=== PATIENT | female | born 1990 | race Caucasian/White ===

== ENCOUNTER → 2017-08-19 16:13 | Outpatient (CLI) | payer OTHER, SELFPAY ==
[2017-08-19 17:29] LABS: Ferritin 7 ng/mL (8-252); Glucose Challenge Gest 1H 50g 104 mg/dL (70-140); Iron Binding Capacity,Total 402 ug/dL (250-450)
[2017-08-19 17:51] LABS: hCG Titer Quant., Serum 941 mIU/mL (<9 non-preg)
[2017-08-19 17:56] LABS: Absolute Lymphocyte Count 1.63 X10^3/ul (0.83-4.51); Absolute Neutrophil Count 3.7 X10^3/uL (2.0-7.7); Basophil# 0.02 X10^3/uL; Basophil% 0.3 % (0-1); Eosinophil# 0.02 X10^3/uL; Eosinophils% 0.3 % (0-5); Hematocrit 34.6 % (37-47); Hemoglobin 10.8 g/dl (12.0-15.0); Lymphocyte # 1.63 X10^3/ul (4.0); Lymphocyte % 28.3 % (19-41); Mean Corp Hgb Conc 31.2 g/gl (32-36); Mean Corpuscular Hgb 25.4 pg (27.0-32.0); Mean Corpuscular Volume 81.4 fL (81-99); Mean Platelet Vol. 9.6 fl (6.2-12.0); Monocyte# 0.36 X10^3/uL; Monocyte% 6.3 % (0-10); Neutrophil # 3.71 X10^3/uL (2.7-7.7); Neutrophil % 64.6 % (47-70); Platelet Count 328 K/mm3 (150-450); RBC Distribution Width CV 14.8 % (11.6-14.6); Red Blood Count 4.25 M/mm3 (4.2-5.4); White Blood Count 5.8 K/mm3 (4.4-11.0)
[2017-08-19 18:02] LABS: POSITIVE COUNT NO; POSITIVE DIFFERENTIAL NO; POSITIVE MORPHOLOGY NO
[2017-08-19 18:17] LABS: HIV - WCH Non-Reactive (Nonreactive); Rubella IgG 16.1 IU/mL; Vitamin B12 757 pg/mL (211-911)
[2017-08-21 11:40] LABS: HEPATITIS B SURFACE AG Negative (Negative)
[2017-08-23 05:01] LABS: Rapid Plasmin Reagin (RPR) NONREACTIVE (NONREACTIVE)
[2017-08-23 11:30] LABS: Vitamin D 1,25-Dihydroxy 69.7 pg/mL (19.9-79.3)
== END ==
PROVIDERS: Visit Provider Obstetrics & Gynecology
DX: O09.90 Supervision of high risk pregnancy, unspecified, unspecified trimester (principal); Z98.890 Other specified postprocedural states; Z3A.00 Weeks of gestation of pregnancy not specified
CPT/HCPCS: 82607; 82652; 82728; 82950; 83550; 84702; 85025; 86592; 86703; 86762; 86850; 86900; 87340

== ENCOUNTER → 2017-08-19 17:16 | Outpatient (CLI) | payer OTHER, SELFPAY ==
[2017-08-19 19:31] LABS: Chlamydia Trachomatis by PCR Negative (Negative); Neisserai gonorrhoeae by PCR Negative (Negative); Probe Check PASS; Sample Adequacy Control PASS; Specimen Processing Control PASS
== END ==
PROVIDERS: Visit Provider Obstetrics & Gynecology
DX: O09.90 Supervision of high risk pregnancy, unspecified, unspecified trimester (principal); N89.8 Other specified noninflammatory disorders of vagina; Z3A.00 Weeks of gestation of pregnancy not specified
CPT/HCPCS: 87070; 87077; 87086; 87088; 87186; 87205; 87491; 87591

== ENCOUNTER 2017-10-17 11:20 | Day surgery (SDC) | payer MEDICAID, SELFPAY ==
[2017-10-15 15:41] LABS: Absolute Lymphocyte Count 2.13 X10^3/ul (0.83-4.51); Absolute Neutrophil Count 5.1 X10^3/uL (2.0-7.7); Basophil# 0.02 X10^3/uL; Basophil% 0.3 % (0-1); Eosinophil# 0.09 X10^3/uL; Eosinophils% 1.2 % (0-5); Hematocrit 36.4 % (37-47); Lymphocyte # 2.13 X10^3/ul (4.0); Lymphocyte % 27.8 % (19-41); Mean Corpuscular Volume 81.8 fL (81-99); Mean Platelet Vol. 9.3 fl (6.2-12.0); Monocyte# 0.37 X10^3/uL; Monocyte% 4.8 % (0-10); Neutrophil # 5.05 X10^3/uL (2.7-7.7); Neutrophil % 65.8 % (47-70); Platelet Count 236 K/mm3 (150-450); RBC Distribution Width CV 15.9 % (11.6-14.6); RBC Distribution Width SD 48.4 fl (35.1-43.9); Red Blood Count 4.45 M/mm3 (4.2-5.4); White Blood Count 7.7 K/mm3 (4.4-11.0)
[2017-10-15 15:48] LABS: POSITIVE COUNT NO; POSITIVE DIFFERENTIAL NO; POSITIVE MORPHOLOGY NO
[2017-10-17] VITALS (7 sets, daily range): BP systolic 106–163; BP diastolic 58–86; PULSE 66–100; RESP 18; TEMP 36.2–37.1; O2SAT 94–100; BMI 40.8
--- NOTE | 2017-10-17 | POC_PTH ---
PATIENT: RAUL ZIEGLER [place] [facility] [place][id number] AGE/SX: 27/F ROOM: RE10/17/[address]: Dr. Norma Lopez MD : 1990 BED: DIS: 10/17/2017 SPEC #: [id number] RECD: 10/17/17 14:41 STATUS: [place] RECedrick #: [id number] ANAHI: 10/17/17 00:[address]: Norma Lopez DEPT: SURGICAL PATHOLOGY RECD BY: Gian Segura ENTERED: 10/17/17 14:42 SP TYPE: PROD CONC OTHR DR: Dr. Buzz Castañeda MD Tissues: Product of conception, NOS Procedures: Surgery Specimen Level IV HEADER OPERATION: Dilation and curettage, suction PRE-OP DIAGNOSIS: Missed , bleeding during early ; bacteriuria during ; family history of Down syndrome TISSUE SUBMITTED: Products of conception (12-week gestation) for genetic studies MICROSCOPIC DIAGNOSIS Endometrium, curettage: Chorionic villi, decidualized stroma and early tissue consistent with products of conception. AM:ruby 10/18/17 COMMENT Case has been reviewed in consultation with Dr. Enamorado who concurs with the above diagnosis. TIMMY:KRISHAN MICROSCOPIC DESCRIPTION Slides are reviewed. GROSS DESCRIPTION Received fresh without formalin is one container labeled with the patient's name and designated products of conception for genetic studies. The specimen consists of multiple pieces of pink-red soft tissue that in aggregate measure 8 x 8 x 2 cm. tissue is not identified. Air Quality Specialist tissue is also submitted for genetic studies. Air Quality Specialist tissue is submitted in two cassettes. The rest of the specimen is fixed in formalin. / KRISHAN:ruby 10/17/17 TC:5 CPT: 49737
--- NOTE | 2017-10-17 11:38 | PCM.HP.OB ---
- Problem List (1) Missed Status: Acute History Date of Admission: 10/17/17 History of this : This is a 27 year-old, at 12 weeks gestational age presents with missed . she denies any bleeding or cramping. Medical History: Medical History (Last Reviewed 09/09/17 @ 13:22 by Radha Mack) Anxiety F41.9 Depression F32.9 Hydradenitis L73.2 PTSD (post-traumatic stress disorder) F43.10 Surgical History: Surgical History (Last Reviewed 09/09/17 @ 13:22 by Radha Mack) History of ear surgery Z98.890 history of gastric sleeve Allergies No Known Allergies Allergy (Verified 09/09/17 13:22) Home Medications: Home Medications buspirone 10 mg tablet 10 mg PO BID 08/19/17 hydroxyzine pamoate 25 mg capsule 25 mg PO TID-QID PRN #60 cap 08/19/17 vitamin with calcium no.72-iron 27 mg-folic acid 1 mg tablet 1 tab PO QDAY #30 tab 08/19/17 ranitidine 150 mg tablet 150 mg PO BID #60 tab 08/19/17 trazodone 50 mg tablet 100 mg PO QHS tab 08/19/17 promethazine 12.5 mg tablet 12.5 mg PO Q6H PRN #60 tab 10/03/17 Smoking Status: Never smoker Number of Fetus(es): 1 - no heart tones or color flow seen History Past Pregnancies: Past Pregnancies Delivery Date Name GA/Weeks Outcome Route Weight Infant Gender Labor Length Anesthesia Delivery Location Provider FOB Review of Systems Constitutional: Denies: Fever, Malaise Eyes: Denies: Blurred vision, Vision Change HEENT: Denies: Head Aches, Visual Changes Cardiovascular: Denies: Chest Pain, Palpitations Respiratory: Denies: Cough, Shortness of Breath, Wheezing Gastrointestinal: Denies: Abdominal Pain, Diarrhea, Nausea, Vomiting Genitourinary: Denies: Dysuria, Hematuria Musculoskeletal: Denies: Joint Pain, Muscle pain Skin: Denies: Lesions, Rash Neurological: Denies: Blurred vision, Focal weakness, Headaches Psychiatric: Denies: Anxiety, Depression Endocrine: Denies: Heat/ Cold Intolerance Hematologic/ Lymphatic: Denies: Easy Bruising, Easy Bleeding Physical Exam General: Alert, Cooperative, No apparent distress HEENT: Atraumatic, Normocephalic. Negative for: Thyromegaly, Lymphadenopathy Cardiovascular: Regular rate Lungs: Normal air movement Abdomen: Soft, Non Tender, Gravid Neurological: Deep Tendon Reflexes 2+/4 and Symmetrical, Neuro grossly intact. 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 Negative for: Vulvar lesions Estimated gestational size: Appropriate for gestational size Presentation: Cephalic Assessment/Plan All Active Problems (Last Reviewed 09/09/17 @ 13:22 by Radha Mack) Missed (Acute) Bleeding in early (Acute) Bacteriuria during (Acute) Iron deficiency anemia during (Acute) Family history of Down syndrome (Acute) History of gastric surgery (Acute) BMI 40.0-44.9, adult (Acute) Supervision of high risk , antepartum (Acute) This is a 27 year-old, at 12 weeks presents with missed plan d and c suction
[2017-10-17] MEDS: Doxycycline 100 MG CAPSULE PO (12:54)
--- NOTE | 2017-10-17 15:16 | PCM.DC.D&C ---
Discharge Diet: No Restrictions Discharge Activity: Return to Normal Activity, May Shower, May Take a Tub Bath Allergies/Adverse Reactions: Allergies No Known Allergies Allergy (Verified 09/09/17 13:22) Medications to take at Discharge buspirone 10 mg tablet 10 mg PO BID 08/19/17 hydroxyzine pamoate 25 mg capsule 25 mg PO TID-QID PRN #60 cap 08/19/17 vitamin with calcium no.72-iron 27 mg-folic acid 1 mg tablet 1 tab PO QDAY #30 tab 08/19/17 ranitidine 150 mg tablet 150 mg PO BID #60 tab 08/19/17 trazodone 50 mg tablet 100 mg PO QHS tab 08/19/17 promethazine 12.5 mg tablet 12.5 mg PO Q6H PRN #60 tab 10/03/17 Primary Care Physician: Buzz Castañeda MD [Primary Care Provider] - Please Follow Up With: Norma Lopez MD - [phone]
--- NOTE | 2017-10-17 15:20 | PCM.OPRPT ---
Problem List (1) Missed Status: Acute Report of Operation Date of Procedure: 10/17/17 Pre-Operative Diagnosis: missed ab Post-Operative Diagnosis: same Surgery/Procedure Performed:: suction d and c Description of Surgical Findings:: 12 week missed confirmed no fht Type of Anesthesia:: Local MAC Special Medications: cytotec pitocin Specimen's removed: POC Estimated Blood Loss (mL): minimal Fluids Replaced: crystalloid Description of Procedure: Patient was evaluated preoperatively and found to have a missed at 12 weeks of with a pole only measuring 12 weeks with no heart tones seen. this was reconfirmed by ultrasound immediatley prior to surgery. Patient was counseled and offered medical management versus surgical and patient chose suction D&C. Patient received IV anesthesia was prepped and draped in normal sterile fashion in the dorsal lithotomy position. Cervix was grasped with ring forceps and previously dilated to allow passage of a 12 mm suction curette. Uterus sounded 13 cm. Multiple passes were made with the suction curette to remove products of conception and then sharp curettage was formed to confirm all removal of products of conception. All instruments were removed from the vagina and patient was awoken and taken recovery in stable condition. Grafts/Implants Used: none - Complications none
== END 2017-10-17 16:50 | disposition home or self-care (01) ==
LOC: SDC 11:21 → AC 11:21
PROVIDERS: Visit Provider Obstetrics & Gynecology
PROC: (CPT 1965; principal; 2017-10-17 12:40)
DX: O03.4 Incomplete spontaneous abortion without complication (principal); F32.9 Major depressive disorder, single episode, unspecified; F41.9 Anxiety disorder, unspecified; F43.10 Post-traumatic stress disorder, unspecified; L73.2 Hidradenitis suppurativa; K21.9 Gastro-esophageal reflux disease without esophagitis; Z79.899 Other long term (current) drug therapy
CPT/HCPCS: 59812; 85025; 86850; 86900; 88305; J7120

== ENCOUNTER → 2018-11-24 | Outpatient (CLI) | payer MEDICAID, SELFPAY ==
[2017-10-17 11:50] VITALS: BMI 40.8
[2018-11-24 13:30] LABS: hCG Titer Quant., Serum 771 mIU/mL (1-3)
== END | disposition home or self-care (01) ==
PROVIDERS: Referring Provider Obstetrics & Gynecology; Visit Provider Obstetrics & Gynecology
DX: N91.2 Amenorrhea, unspecified (principal)
CPT/HCPCS: 36415; 84702

== ENCOUNTER → 2018-11-26 | Outpatient (CLI) | payer MEDICAID, SELFPAY ==
[2017-10-17 11:50] VITALS: BMI 40.8
[2018-11-26 13:37] LABS: hCG Titer Quant., Serum 1494 mIU/mL (1-3)
== END | disposition home or self-care (01) ==
LOC: LAB 12:01
PROVIDERS: Referring Provider Obstetrics & Gynecology; Visit Provider Obstetrics & Gynecology
DX: N91.2 Amenorrhea, unspecified (principal)
CPT/HCPCS: 36415; 84702

== ENCOUNTER → 2018-12-22 | Outpatient (CLI) | payer MEDICAID, SELFPAY ==
[2018-12-22 09:35] VITALS: BMI 40.8
[2018-12-22 10:43] LABS: Absolute Lymphocyte Count 1.38 X10^3/uL (0.83-4.51); Absolute Neutrophil Count 3.6 X10^3/uL (2.0-7.7); Basophil# 0.02 X10^3/uL; Basophil% 0.4 % (0-1); Eosinophil# 0.04 X10^3/uL; Eosinophils% 0.7 % (0-5); Hematocrit 37.4 % (37-47); Hemoglobin 12.5 g/dL (12.0-15.0); Lymphocyte # 1.38 X10^3/ul (4.0); Lymphocyte % 25.5 % (19-41); Mean Corp Hgb Conc 33.4 g/dL (32-36); Mean Corpuscular Volume 86.8 fL (81-99); Mean Platelet Vol. 9.3 fl (6.2-12.0); Monocyte% 7.4 % (0-10); NRBC Flagged by Analyzer 0 % (0-5); Neutrophil # 3.56 X10^3/uL (2.7-7.7); Neutrophil % 65.6 % (47-70); Platelet Count 224 K/mm3 (150-450); RBC Distribution Width SD 38.4 fl (35.1-43.9); Red Blood Count 4.31 M/mm3 (4.2-5.4); White Blood Count 5.4 K/mm3 (4.4-11.0)
[2018-12-22 11:36] LABS: Glucose Challenge Gest 1H 50g 164 mg/dL (70-140); Iron 54 ug/dL (50-170); Iron Binding Capacity,Total 278 ug/dL (250-450); PERCENT IRON SATURATION 19.4 % (15.0-55.0)
[2018-12-22 12:29] LABS: HIV - WCH Non-Reactive (Nonreactive); Hepatitis B Surface Antigen Non-Reactive (Nonreactive); Rubella IgG 14.3 IU/mL; Vitamin B12 541 pg/mL (211-911)
[2018-12-22 18:02] LABS: Chlamydia Trachomatis by PCR Negative (Negative); Neisserai gonorrhoeae by PCR Negative (Negative); Probe Check PASS; Sample Adequacy Control PASS; Specimen Processing Control PASS
[2018-12-25 14:14] LABS: Vitamin D 1,25-Dihydroxy 88.9 pg/mL (19.9-79.3)
[2018-12-26 01:38] LABS: Rapid Plasmin Reagin (RPR) NONREACTIVE (NONREACTIVE)
[2018-12-29 13:44] LABS: HPV Reflexed? NOT INDICATED
== END | disposition home or self-care (01) ==
PROVIDERS: Referring Provider Obstetrics & Gynecology; Visit Provider Obstetrics & Gynecology
DX: O09.90 Supervision of high risk pregnancy, unspecified, unspecified trimester (principal); Z98.890 Other specified postprocedural states; Z12.4 Encounter for screening for malignant neoplasm of cervix; Z3A.00 Weeks of gestation of pregnancy not specified
CPT/HCPCS: 36415; 82607; 82652; 82746; 82950; 83540; 83550; 85025; 86592; 86703; 86762; 86850; 86900; 86901; 87077; 87086; 87088; 87186; 87340; 87491; 87591; 87624; 88175; G0145

== ENCOUNTER → 2019-01-02 | Outpatient (CLI) | payer MEDICAID, SELFPAY ==
[2018-12-22 09:35] VITALS: BMI 40.8
[2019-01-02 08:07] LABS: Glucose GTT-Gestation. Fasting 88 mg/dL (<105)
[2019-01-02 09:05] LABS: Glucose GTT-Gestational 1 Hr 183 mg/dL (<190)
[2019-01-02 09:48] LABS: Glucose GTT-Gestational 2 Hr 123 mg/dL (<165)
[2019-01-02 12:05] LABS: Glucose GTT-Gestational 3 Hr 44 L (<145)
== END | disposition home or self-care (01) ==
LOC: LAB 07:03
PROVIDERS: Referring Provider Obstetrics & Gynecology; Visit Provider Obstetrics & Gynecology
DX: O99.810 Abnormal glucose complicating pregnancy (principal); Z3A.00 Weeks of gestation of pregnancy not specified
CPT/HCPCS: 36415; 82951; 82952

== ENCOUNTER → 2019-01-23 16:31 | Outpatient (CLI) | payer MEDICAID, SELFPAY ==
[2019-01-23 15:57] VITALS: BMI 40.8
== END ==
PROVIDERS: Referring Provider Nurse Practitioner Women's Health; Visit Provider Nurse Practitioner Women's Health
DX: O99.810 Abnormal glucose complicating pregnancy (principal); Z3A.00 Weeks of gestation of pregnancy not specified
CPT/HCPCS: 36415; 87086; 87088

== ENCOUNTER → 2019-02-23 09:46 | Outpatient (CLI) | payer MEDICAID, SELFPAY ==
[2019-02-23 09:10] VITALS: BMI 40.8
== END ==
PROVIDERS: Referring Provider Obstetrics & Gynecology; Visit Provider Obstetrics & Gynecology
DX: Z36.9 Encounter for antenatal screening, unspecified (principal)
CPT/HCPCS: 36415

== ENCOUNTER → 2019-04-30 14:36 | Outpatient (CLI) | payer OTHER, SELFPAY ==
[2019-03-27 15:12] VITALS: BMI 40.8
--- NOTE | 2019-04-30 14:37 | RAD_ITS ---
STUDY: X-RAY - LEFT ANKLE REASON FOR EXAM: Female, 29 years old. FELL, TWISTED ANKLE TWO DAYS AGO, LATERAL SWELLING TECHNIQUE: 3 view(s) of the ankle. COMPARISON: None. FINDINGS: Normal visualized distal tibia and fibula. Normal medial and lateral malleoli. Normal tibiotalar articulation and ankle mortise. Normal visualized talus and calcaneus. The visualized subtalar, talonavicular, calcaneocuboid and tarsal articulations are normal. The soft tissue structures are unremarkable. RAD/Ankle min 3 Views IMPRESSION: Normal x-ray examination of the ankle. Electronically Signed: Taj Leon MD at 15:25 EST Tel , Service support ,
--- NOTE | 2019-04-30 14:37 | RAD_ITS ---
STUDY: X-RAY - LEFT FOOT CLINICAL: Female, 29 years old. FELL, TWISTED FOOT TWO DAYS AGO, SWELLING TECHNIQUE: 3 view(s) of the foot. COMPARISON: None. FINDINGS: Normal talus, calcaneus, and tarsal bones. Normal visualized subtalar, talonavicular, calcaneocuboid, tarsal and tarsometatarsal articulations. Normal metatarsi. Normal metatarsophalangeal joint of the great toe. Normal tibial and fibular sesamoid bones. Normal interphalangeal joint of the great toe. Normal phalanges of the great toe. Normal second through fifth metatarsophalangeal joints. Normal interphalangeal joints and phalanges of the lesser toes. The soft tissue structures are unremarkable. RAD/Foot min 3 Views IMPRESSION: Normal x-ray examination of the foot. Electronically Signed: Taj Leon MD at 15:23 EST Tel , Service support ,
[2019-04-30 18:27] LABS: Absolute Lymphocyte Count 2.13 X10^3/uL (0.83-4.51); Absolute Neutrophil Count 6.1 X10^3/uL (2.0-7.7); Basophil# 0.03 X10^3/uL; Basophil% 0.3 % (0-1); Eosinophils% 1.1 % (0-5); Hematocrit 32.7 % (37-47); Hemoglobin 10.7 g/dL (12.0-15.0); Lymphocyte # 2.13 X10^3/ul (4.0); Lymphocyte % 23.6 % (19-41); Mean Corp Hgb Conc 32.7 g/dL (32-36); Mean Corpuscular Hgb 29.6 pg (27.0-32.0); Mean Corpuscular Volume 90.6 fL (81-99); Mean Platelet Vol. 9.3 fl (6.2-12.0); Monocyte# 0.62 X10^3/uL; Monocyte% 6.9 % (0-10); NRBC Flagged by Analyzer 0 % (0-5); Neutrophil # 6.12 X10^3/uL (2.7-7.7); Neutrophil % 67.8 % (47-70); Platelet Count 260 K/mm3 (150-450); RBC Distribution Width CV 12.4 % (11.6-14.6); Red Blood Count 3.61 M/mm3 (4.2-5.4)
[2019-04-30 18:34] LABS: Glucose Challenge Gest 1H 50g 143 mg/dL (70-140)
== END ==
PROVIDERS: Referring Provider Obstetrics & Gynecology; Visit Provider Obstetrics & Gynecology
DX: S99.922A Unspecified injury of left foot, initial encounter (principal); S99.912A Unspecified injury of left ankle, initial encounter; O09.90 Supervision of high risk pregnancy, unspecified, unspecified trimester
CPT/HCPCS: 36415; 73610; 73630; 82950; 85025

== ENCOUNTER → 2019-05-01 10:03 | Outpatient (CLI) | payer OTHER, SELFPAY ==
[2019-04-30 17:02] VITALS: BMI 40.8
[2019-05-01 11:15] LABS: Glucose GTT-Gestation. Fasting 87 mg/dL (<105)
[2019-05-01 11:56] LABS: Glucose GTT-Gestational 1 Hr 199 mg/dL (<190)
[2019-05-01 12:49] LABS: Glucose GTT-Gestational 2 Hr 120 mg/dL (<165)
[2019-05-01 13:55] LABS: Glucose GTT-Gestational 3 Hr 53 L (<145)
== END ==
PROVIDERS: Referring Provider Obstetrics & Gynecology; Visit Provider Obstetrics & Gynecology
DX: O99.810 Abnormal glucose complicating pregnancy (principal); Z3A.00 Weeks of gestation of pregnancy not specified
CPT/HCPCS: 36415; 82951; 82952

== ENCOUNTER → 2019-06-04 12:02 | Outpatient (CLI) | payer OTHER, SELFPAY ==
[2019-05-29 16:24] VITALS: BMI 40.8
--- NOTE | 2019-06-04 12:04 | US_ITS ---
STUDY: SECOND AND THIRD TRIMESTER OBSTETRICAL ULTRASOUND REASON FOR EXAM: Female, 29 years old growth LMP: October 24, 2018. TECHNIQUE: Transabdominal TECHNICAL QUALITY: Adequate. PRIOR ULTRASOUND: None. FINDINGS: There is a single intrauterine fetus. The fetus is in a cephalic presentation. There is demonstrated cardiac activity with a heart rate of 147 bpm. There is a normal amniotic fluid volume. The largest amniotic fluid pocket measures 4.2 cm. The amniotic fluid index (BERENICE) is 13.2 cm. The placenta is posterior in location and is not low lying. There are Grade 1 placental changes. The cervix measures 3.9 cm in length. The adnexal regions are not visualized. BIOMETRY: BPD: 8.2 cm: 32 weeks, 5 days HC: 30.1 cm: 33 weeks, 2 days AC: 27.7 cm: 31 weeks, 5 days FL: 6.2 cm: 32 weeks, 2 days CI: 80% FL/BPD: 76% FL/HC: FL/AC: 22.5% HC/AC: 1.08 age by current US: 32 weeks, 2 days. SHLOMO by current US: July 28, 2019. Estimated weight: 1922 grams, +/- 284 grams, 45 %. Age by LMP: 31 weeks, 6 days. SHLOMO by LMP: July 31, 2019. US/OB Limited With Biometrics IMPRESSION: Single live intrauterine gestation with a mean gestational age of 32 weeks and 2 days. Electronically Signed: Brennan Smith, at 13:18 EST , Service support ,
[2019-06-04 13:35] LABS: Absolute Lymphocyte Count 1.93 X10^3/uL (0.83-4.51); Absolute Neutrophil Count 7.2 X10^3/uL (2.0-7.7); Basophil# 0.03 X10^3/uL; Basophil% 0.3 % (0-1); Eosinophil# 0.08 X10^3/uL; Eosinophils% 0.8 % (0-5); Hematocrit 34.8 % (37-47); Hemoglobin 11.4 g/dL (12.0-15.0); Lymphocyte # 1.93 X10^3/ul (4.0); Lymphocyte % 19.3 % (19-41); Mean Corp Hgb Conc 32.8 g/dL (32-36); Mean Corpuscular Volume 88.5 fL (81-99); Mean Platelet Vol. 9.3 fl (6.2-12.0); Monocyte# 0.65 X10^3/uL; Monocyte% 6.5 % (0-10); NRBC Flagged by Analyzer 0 % (0-5); Neutrophil # 7.23 X10^3/uL (2.7-7.7); Neutrophil % 72.5 % (47-70); Platelet Count 251 K/mm3 (150-450); RBC Distribution Width CV 12.6 % (11.6-14.6); RBC Distribution Width SD 41.1 fl (35.1-43.9); Red Blood Count 3.93 M/mm3 (4.2-5.4)
== END ==
PROVIDERS: Referring Provider Obstetrics & Gynecology; Visit Provider Obstetrics & Gynecology
DX: O24.419 Gestational diabetes mellitus in pregnancy, unspecified control (principal); D64.9 Anemia, unspecified; Z3A.32 32 weeks gestation of pregnancy
CPT/HCPCS: 36415; 76816; 85025

== ENCOUNTER → 2019-06-25 09:16 | Outpatient (CLI) | payer OTHER, SELFPAY ==
[2019-06-25 09:13] VITALS: BMI 46.2
[2019-06-25 09:35] LABS: Absolute Lymphocyte Count 1.84 X10^3/uL (0.83-4.51); Absolute Neutrophil Count 6.7 X10^3/uL (2.0-7.7); Basophil# 0.02 X10^3/uL; Basophil% 0.2 % (0-1); Eosinophil# 0.05 X10^3/uL; Eosinophils% 0.5 % (0-5); Hematocrit 36.1 % (37-47); Hemoglobin 11.8 g/dL (12.0-15.0); Lymphocyte # 1.84 X10^3/ul (4.0); Lymphocyte % 19.8 % (19-41); Mean Corp Hgb Conc 32.7 g/dL (32-36); Mean Corpuscular Volume 88.7 fL (81-99); Mean Platelet Vol. 9.2 fl (6.2-12.0); Monocyte% 6.5 % (0-10); NRBC Flagged by Analyzer 0 % (0-5); Neutrophil # 6.71 X10^3/uL (2.7-7.7); Neutrophil % 72.5 % (47-70); Platelet Count 212 K/mm3 (150-450); RBC Distribution Width CV 12.8 % (11.6-14.6); RBC Distribution Width SD 41.4 fl (35.1-43.9); Red Blood Count 4.07 M/mm3 (4.2-5.4); White Blood Count 9.3 K/mm3 (4.4-11.0)
[2019-06-25 09:49] LABS: Protein, Urine (Random) 23.1 mg/dL (<11.9); Protein:Creat Ratio 206 mg/g CRE (0-200)
[2019-06-25 10:00] LABS: ALB/GLOB Ratio 0.6 RATIO (0.9-2.4); AST(SGOT) 13 U/L (15-37); Alanine Aminotransfer ALT/SGPT 24 U/L (13-56); Albumin, Serum 2.6 g/dL (3.2-5.0); Alkaline Phosphatase 101 U/L (45-117); Anion Gap 4 (5-15); BUN 7 mg/dL (7-18); BUN/Creat Ratio 11.8 RATIO (10-20); Calcium,Total 8.7 mg/dL (8.5-10.1); Chloride 107 mmol/L (98-107); EST Glomerular Filtration Rate 128 mL/min (>60); Est Glom Filt Rate - Afr Amer 154 mL/min (>60); Globulin 4.2 g/dL (2.2-4.2); Glucose 88 mg/dL (74-106); Protein, Total 6.8 g/dL (6.4-8.2); Sodium Level 136 mmol/L (136-145)
== END ==
PROVIDERS: Nurse Practitioner Women's Health; Referring Provider Obstetrics & Gynecology; Visit Provider Obstetrics & Gynecology
DX: O26.899 Other specified pregnancy related conditions, unspecified trimester (principal); R51 Headache
CPT/HCPCS: 36415; 80053; 82570; 84156; 85025

== ENCOUNTER → 2019-07-03 13:48 | Outpatient (CLI) | payer OTHER, SELFPAY ==
[2019-05-29 16:24] VITALS: BMI 40.8
[2019-07-03 13:16] VITALS: BMI 46.2
--- NOTE | 2019-07-03 13:49 | US_ITS ---
STUDY: SECOND AND THIRD TRIMESTER OBSTETRICAL ULTRASOUND - LIMITED REASON FOR EXAM: Female, 29 years old. Growth. LMP: October 24, 2018. PRIOR ULTRASOUND: June 04, 2019. TECHNIQUE: Transabdominal TECHNICAL QUALITY: Adequate. FINDINGS: There is a single intrauterine fetus. The fetus is in a cephalic presentation. There is demonstrated cardiac activity with a heart rate of 140 bpm. There is a normal amniotic fluid volume. The largest amniotic fluid pocket measures 6.95 cm. The amniotic fluid index (BERENICE) is 20.98 cm. The placenta is posterior in location and is not low lying. There are Grade 0 placental changes. The cervix measures 3.06 cm in length. BIOMETRY: BPD: 8.85 cm: 35 weeks, 5 days HC: 32.23 cm: 36 weeks, 2 days AC: 32.31 cm: 36 weeks, 1 days FL: 6.93 cm: 35 weeks, 4 days Age by LMP: 36 weeks, 0 days. SHLOMO by LMP: July 31, 2019.. age by prior US: 36 weeks, 3 days. SHLOMO by prior US: July 28, 2019.. age by current US: 36 weeks, 1 days. SHLOMO by current US: July 30, 2019.. Estimated weight: 2832 grams, +/- 419 grams, 49 percentile. US/OB Limited With Biometrics IMPRESSION: 1. Live single intrauterine at 36 weeks, 1 day. SHLOMO is July 30, 2019. There is adequate interval growth since the prior study. 2. EFW of 2832 g. 3. BERENICE 20.98 cm. 4. Posterior grade 1 placenta. 5. Vertex presentation. Electronically Signed: Karl Pompa DO at 16:48 EST Tel [phone], Service support ,
== END ==
PROVIDERS: Referring Provider Obstetrics & Gynecology; Visit Provider Obstetrics & Gynecology
DX: O24.419 Gestational diabetes mellitus in pregnancy, unspecified control (principal); O09.90 Supervision of high risk pregnancy, unspecified, unspecified trimester
CPT/HCPCS: 76816; 87081

== ENCOUNTER → 2019-07-07 14:45 | Outpatient (CLI) | payer OTHER, MEDICAID, SELFPAY ==
[2019-07-07 14:06] VITALS: BMI 46.2
[2019-07-07 15:51] LABS: T4 Free Direct 0.82 ng/dL (0.76-1.46); Thyroid Stim Hormone (TSH) 1.48 uIU/mL (0.358-3.74)
== END ==
PROVIDERS: Referring Provider Nurse Practitioner Women's Health; Visit Provider Nurse Practitioner Women's Health
DX: E03.9 Hypothyroidism, unspecified (principal)
CPT/HCPCS: 36415; 84439; 84443

== ENCOUNTER 2019-07-25 08:35 | Outpatient (CLI) | payer OTHER, MEDICAID, SELFPAY ==
[2019-07-24 15:14] VITALS: BMI 46.2
[2019-07-25 08:51] VITALS: BP 112/60; PULSE 87; TEMP 37; O2SAT 97
[2019-07-25 09:03] VITALS: BMI 46.8
--- NOTE | 2019-07-25 10:13 | OB.TRI.PN_ITS ---
Progress Notes Date of Service: 07/25/19 Progress Note: FALSE LABOR NO CERVICAL CHANGE FHT: 130 Moderate variability reactive no decelerations category I tracing Rhodes: irregular Contractions Multi Select Codes - Urinary/Genital Urinary/Genital CPT Codes: 39186-60 non-stress test Interp
== END 2019-07-25 09:40 | disposition home or self-care (01) ==
LOC: WPOUT 08:37 → OBT 08:38
PROVIDERS: Referring Provider Obstetrics & Gynecology; Visit Provider Obstetrics & Gynecology
DX: O47.9 False labor, unspecified (principal); Z3A.00 Weeks of gestation of pregnancy not specified
CPT/HCPCS: 59025; 59050; 99218; G0378

== ENCOUNTER 2019-07-25 18:50 | Inpatient (IN) | payer OTHER, SELFPAY ==
[2019-07-25] VITALS (7 sets, daily range): BP systolic 121–141; BP diastolic 74–84; PULSE 81–90; TEMP 36.4–37.5; O2SAT 96–98; BMI 46.8; BMI 46.1
[2019-07-25] MEDS: Lactated Ringers 1,000 ML 50 ML IV (19:55)
[2019-07-25 20:22] LABS: Absolute Lymphocyte Count 1.54 X10^3/uL (0.83-4.51); Absolute Neutrophil Count 9.1 X10^3/uL (2.0-7.7); Basophil# 0.03 X10^3/uL; Basophil% 0.3 % (0-1); Eosinophil# 0.02 X10^3/uL; Eosinophils% 0.2 % (0-5); Hematocrit 36.7 % (37-47); Hemoglobin 12.2 g/dL (12.0-15.0); Lymphocyte # 1.54 X10^3/ul (4.0); Lymphocyte % 13.6 % (19-41); Mean Corp Hgb Conc 33.2 g/dL (32-36); Mean Corpuscular Hgb 29.3 pg (27.0-32.0); Mean Platelet Vol. 10.2 fl (6.2-12.0); Monocyte% 5.3 % (0-10); NRBC Flagged by Analyzer 0 % (0-5); Neutrophil # 9.08 X10^3/uL (2.7-7.7); Neutrophil % 80.2 % (47-70); Platelet Count 209 K/mm3 (150-450); RBC Distribution Width SD 41.1 fl (35.1-43.9); Red Blood Count 4.17 M/mm3 (4.2-5.4); White Blood Count 11.3 K/mm3 (4.4-11.0)
[2019-07-25 22:20] LABS: Bedside Glucose 81 mg/dL (70-110)
[2019-07-25 22:21] LABS: Bedside Glucose 87 mg/dL (70-110)
[2019-07-26] VITALS (19 sets, daily range): BP systolic 99–149; BP diastolic 49–84; PULSE 68–111; RESP 16–18; TEMP 35.9–37; O2SAT 93–99
[2019-07-26 00:31] LABS: Bedside Glucose 144 mg/dL (70-110)
[2019-07-26 00:31] LABS: Bedside Glucose 97 mg/dL (70-110)
[2019-07-26] MEDS: Oxytocin 30 units/NS 500 ml 30 UNITS/500 ML IV.SOLN IV (00:57)
[2019-07-26] MEDS: Dext 5%-0.45% NS 1,000 ML 125 ML IV (03:48)
[2019-07-26 04:16] LABS: Bedside Glucose 126 mg/dL (70-110)
[2019-07-26 04:16] LABS: Bedside Glucose 140 mg/dL (70-110)
--- NOTE | 2019-07-26 04:57 | PCM.HP.OB ---
- Problem List (1) SROM (spontaneous rupture of membranes) Status: Acute (2) IUD contraception Status: Acute Comment: IUD 6 wk pp. No PA required reference number [id number] (3) Gestational diabetes Status: Acute Qualifiers: Comment: borderline- recommend checking fasting and 2hrPP. testing planned deliver by 39-40 (4) Anemia Status: Acute Comment: repeat cbc wnl (5) Vitamin D imbalance Status: Acute Comment: Vit D elevated. (6) Bacteriuria during Status: Acute Comment: treated. repeat urine culture-neg (7) Hypothyroid Status: Acute Qualifiers: Comment: nl labs 07/07/19 (8) Status: Acute Qualifiers: Comment: Carrier screening negative 08/07, low risk nipt. apl-neg. Anatomy normal and complete. (9) Family history of Down syndrome Status: Acute (10) History of gastric surgery Status: Acute Comment: screen for nutritional deficiency (11) BMI 40.0-44.9, adult Status: Acute Comment: 1 tm glucola nl, growth us and nsts after 32 weeks (12) Supervision of high risk , antepartum Status: Acute Comment: PRR SHLOMO 07/31/2019 girl Denis Gilberto History Date of Admission: 10/17/17 Final SHLOMO: 07/31/19 Gestational age: 39 Weeks and 2 Days History of this : This is a 29 year-old, , at 39 weeks gestational age presents IAL with SROM clear fluid. She has had a complicated by diet-controlled diabetes. She denies any vaginal bleeding admits good movement and has had contractions every 5 to 10 minutes.. Medical History: Medical History (Last Reviewed 07/24/19 @ 15:14 by Jocy Silva) Anemia D64.9 Anxiety F41.9 Depression F32.9 Head ache R51 Hemorrhoids K64.9 Hydradenitis L73.2 PTSD (post-traumatic stress disorder) F43.10 Surgical History: Surgical History (Last Reviewed 07/24/19 @ 15:14 by Jocy Silva) History of ear surgery Z98.890 history of gastric sleeve 2013 Allergies No Known Allergies Allergy (Verified 07/25/19 20:02) Home Medications: Home Medications buspirone 10 mg tablet 10 mg PO BID 08/19/17 trazodone 50 mg tablet 100 mg PO QHS tab 08/19/17 ferrous sulfate 325 mg (65 mg iron) tablet 325 mg PO DAILY 12/22/18 fiber 1 cap PO DAILY cap 12/22/18 Blood Sugar Diagnostic [Blood Glucose Test] See Rx Instructions .ROUTE .MEDSUPPLY 07/25/19 Blood-Glucose Meter [Contour] See Rx Instructions .ROUTE .MEDSUPPLY 07/25/19 Famotidine 20 mg PO DAILY 07/25/19 Hydroxyzine Pamoate 25 mg PO PRN PRN 07/25/19 Lancets [Super Thin Lancets] See Rx Instructions .ROUTE .MEDSUPPLY 07/25/19 Pnv,Calcium 72/Iron/Folic Acid [ Plus (calcium carb)] 1 tab PO QDAY 07/25/19 Promethazine HCl 12.5 mg PO TID PRN 07/25/19 Smoking Status: Never smoker NST - FHR Rate Baby A Baseline: 130 Variability:: Moderate Accelerations:: 15 x 15 Decelerations:: None NST Reactive:: Yes FHR Category:: Category I Uterine Activity:: q 5-10 History Past Pregnancies: Past Pregnancies preivous early miscarriage Labs: Mom's Labs & Results 07/25/19 07/25/19 07/25/19 19:55 19:55 20:34 WBC 11.3 H RBC 4.17 L Hgb 12.2 Hct 36.7 L MCV 88.0 MCH 29.3 MCHC 33.2 RDW Std Deviation 41.1 RDW Coeff of Alina 13.0 Plt Count 209 MPV 10.2 Immature Gran % (Auto) 0.400 Neut % (Auto) 80.2 H Lymph % (Auto) 13.6 L Brooks % (Auto) 5.3 Eos % (Auto) 0.2 Baso % (Auto) 0.3 Absolute Neuts (auto) 9.1 H Absolute Lymphs (auto) 1.54 Nucleated RBC % 0 POC Glucose 81 Blood Type AB POSITIVE Antibody Screen NEGATIVE 07/25/19 07/25/19 07/26/19 21:44 22:51 00:18 WBC RBC Hgb Hct MCV MCH MCHC RDW Std Deviation RDW Coeff of Alina Plt Count MPV Immature Gran % (Auto) Neut % (Auto) Lymph % (Auto) Brooks % (Auto) Eos % (Auto) Baso % (Auto) Absolute Neuts (auto) Absolute Lymphs (auto) Nucleated RBC % POC Glucose 87 97 144 H Blood Type Antibody Screen 07/26/19 07/26/19 01:35 02:42 WBC RBC Hgb Hct MCV MCH MCHC RDW Std Deviation RDW Coeff of Alina Plt Count MPV Immature Gran % (Auto) Neut % (Auto) Lymph % (Auto) Brooks % (Auto) Eos % (Auto) Baso % (Auto) Absolute Neuts (auto) Absolute Lymphs (auto) Nucleated RBC % POC Glucose 126 H 140 H Blood Type Antibody Screen Course Did the patient receive Yes care? Labs Blood Type: AB RH: POSITIVE RPR/VDRL/Syphilis Nonreactive Rubella status Immune HbSAg Negative Date Done: 12/22/18 Chlamydia Negative Gonorrhea Negative HIV/AIDS Non-Reactive Group B Strep: Negative Current Obstetrical History Gestational Diabetes Yes Incompetent Cervix No Infertility No IUGR No Macrosomia No Hypertension/Pre-eclampsia No Placenta Previa/Abruption No PTL/PROM No Uterine anomaly No Oligohydramnios No Polyhydramnios No Multiple gestation No Past Medical History Asthma No Diabetes No Hypertension No Heart disease No Mitral valve prolapse No Neurologic/Seizure disorder/ No Migraines Kidney disease No Liver disease No Varicosities No Clotting disorders/Hx of DVT No Thyroid Dysfunction Yes: hypothyroidism Other medical diseases No Psychiatric disorders Yes: anxiety and depression Major trauma No Abnormal PAP smear No Sleep apnea No Mammogram in the last 2 years No Social History Marital Status: Alleged father Gilberto Hx Smoking No Smoking Status Never smoker How long have you used n/a substances (years)? Expected Delivery Method: Spontaneous Vaginal Review of Systems Constitutional: Denies: Fever, Malaise Eyes: Denies: Blurred vision, Vision Change HEENT: Denies: Head Aches, Visual Changes Cardiovascular: Denies: Chest Pain, Palpitations Respiratory: Denies: Cough, Shortness of Breath, Wheezing Gastrointestinal: Denies: Abdominal Pain, Diarrhea, Nausea, Vomiting Genitourinary: Denies: Dysuria, Hematuria Gynecological: Reports: Vaginal discharge - clear SROM Musculoskeletal: Denies: Joint Pain, Muscle pain Skin: Denies: Lesions, Rash Neurological: Denies: Blurred vision, Focal weakness, Headaches Psychiatric: Denies: Anxiety, Depression Endocrine: Denies: Heat/ Cold Intolerance Hematologic/ Lymphatic: Denies: Easy Bruising, Easy Bleeding Physical Exam Vitals: Vital Signs Temp Pulse BP Pulse Ox 97.0 F L 111 H 138/84 H 99 07/26/19 03:59 07/26/19 03:59 07/26/19 03:59 07/26/19 03:59 General: Alert, Cooperative, No apparent distress HEENT: Atraumatic, Normocephalic. Negative for: Thyromegaly, Lymphadenopathy Cardiovascular: Regular rate Lungs: Normal air movement Abdomen: Soft, Non Tender, Gravid Neurological: Deep Tendon Reflexes 2+/4 and Symmetrical, Neuro grossly intact. 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 Negative for: Vulvar lesions Estimated gestational size: Appropriate for gestational size Presentation: Cephalic Cervix Dilation (cm): 5 Station: 0 Effacement (%): 80 Assessment/Plan All Active Problems (Last Reviewed 07/24/19 @ 15:14 by Jocy Silva) SROM (spontaneous rupture of membranes) (Acute) IUD contraception (Acute) Gestational diabetes (Acute) Anemia (Acute) Vitamin D imbalance (Acute) Bacteriuria during (Acute) Hypothyroid (Acute) (Acute) Family history of Down syndrome (Acute) History of gastric surgery (Acute) BMI 40.0-44.9, adult (Acute) Supervision of high risk , antepartum (Acute) Abnormal glucose affecting (Resolved) Headache in , antepartum (Resolved) This is a 29 year-old, , at 39 weeks gestational age Zentz in active labor Patient presents IAL, plan expectant management for , Pitocin if needed. Pain management: First minimal intervention. GBS negative. Management of any complications: Blood sugars per protocol I have reviewed the PFSH and made any clinically relevant updates.
--- NOTE | 2019-07-26 05:03 | OP.PCM_ITS ---
Problem List (1) SROM (spontaneous rupture of membranes) Status: Acute (2) IUD contraception Status: Acute Comment: IUD 6 wk pp. No PA required reference number [id number] (3) Gestational diabetes Status: Acute Qualifiers: Comment: borderline- recommend checking fasting and 2hrPP. testing planned deliver by 39-40 (4) Anemia Status: Acute Comment: repeat cbc wnl (5) Vitamin D imbalance Status: Acute Comment: Vit D elevated. (6) Bacteriuria during Status: Acute Comment: treated. repeat urine culture-neg (7) Hypothyroid Status: Acute Qualifiers: Comment: nl labs 07/07/19 (8) Status: Acute Qualifiers: Comment: Carrier screening negative 08/07, low risk nipt. apl-neg. Anatomy normal and complete. (9) Family history of Down syndrome Status: Acute (10) History of gastric surgery Status: Acute Comment: screen for nutritional deficiency (11) BMI 40.0-44.9, adult Status: Acute Comment: 1 tm glucola nl, growth us and nsts after 32 weeks (12) Supervision of high risk , antepartum Status: Acute Comment: PRR SHLOMO 07/31/2019 girl Dneis Gilberto Vaginal Delivery Maternal Presentation: Active Labor, Spontaneous Rupture of Membranes 29-year-old G2, P0 at 9 weeks presents in active labor clears SROM Amniotic Membrane Rupture Type: Spontaneous at home Amniotic Fluid Description: Clear Final SHLOMO: 07/31/19 Gestational age: 39 Weeks and 2 Days Date of Procedure: 07/26/19 Pre-Operative Diagnosis: Presents in active labor Post-Operative Diagnosis: Same Surgery/ Procedure Performed: Spontaneous Vaginal Delivery Type of Anesthesia: None Description of Procedure: Patient began pushing and delivered the head in the [YUSRA] presentation. The head was delivered atraumatically. The anterior and posterior shoulders delivered without complication followed by the rest of the and the was placed on the maternal abdomen. Delayed cord clamping was employed for approximately 60 seconds. Cord was clamped and cut and gentle traction was applied to the cord and the placenta delivered spontaneously immediately following it was noted to be intact with three-vessel cord. The perineum and vagina were inspected and noted to have a second-degree perineal laceration that was injected with 1% lidocaine and repaired in the usual fashion with 3-0 V icryl Rapide. EBL was 300 cc. Patient and tolerated delivery well. Presentation: YUSRA Placental Delivery Description: Spontaneous Placenta Disposition: [facility] Cord Vessel Description: 3 Vessels Cord Entanglement: None Estimated Blood Loss: 300 Infant A gender: Female Episiotomy Description: None Laceration: Perineal Extension/lac, 2nd degree Medications given after delivery: IV Pitocin Complications: None Multi Select Codes - Urinary/Genital Urinary/Genital CPT Codes: 67015 Vaginal Delivery [facility]
[2019-07-26] MEDS: Oxytocin 30 units/NS 500 ml 30 UNITS/500 ML IV.SOLN 334 UNITS IV (05:20)
[2019-07-26 06:20] LABS: Bedside Glucose 165 mg/dL (70-110)
[2019-07-26 06:20] LABS: Bedside Glucose 126 mg/dL (70-110)
[2019-07-26] MEDS: Naproxen 250 MG Tablet 500 MG PO ×2 (07:25→15:29)
[2019-07-26 07:31] LABS: Bedside Glucose 147 mg/dL (70-110)
[2019-07-26 07:31] LABS: Bedside Glucose 137 mg/dL (70-110)
[2019-07-26] MEDS: 0.9% Saline Lock 10 ML Syringe IV (08:24)
[2019-07-26] MEDS: Dibucaine 30 GM Tube 1 APPLIC TOPICAL (09:33)
[2019-07-26] MEDS: Acetaminophen 500 MG Tablet 1000 MG PO ×2 (09:35→20:10)
[2019-07-26] MEDS: Senna/Docusate Sodium 1 Tablet PO (09:35)
[2019-07-27 00:28] VITALS: BP 120/70; PULSE 80; RESP 18; TEMP 36.6
[2019-07-27 04:15] VITALS: BP 106/54; PULSE 70; RESP 18; TEMP 37
[2019-07-27] MEDS: Naproxen 250 MG Tablet 500 MG PO ×2 (04:15→18:32)
[2019-07-27 06:31] LABS: Bedside Glucose 79 mg/dL (70-110)
--- NOTE | 2019-07-27 08:04 | PCM.PN.OB ---
Patient Problems: Active and Suspected Problems (Last Reviewed 07/24/19 @ 15:14 by Jocy Silva) SROM (spontaneous rupture of membranes) (Acute) Subjective: Doing well, no complaints.Pain controlled. Denies CP, SOB, N,V. Ambulating well, tolerating po. Lochia moderate, going well. - Physical Exam Vitals/I&O's: Vital Signs Temp Pulse Resp BP Pulse Ox 98.6 F 70 18 106/54 L 95 07/27/19 04:15 07/27/19 04:15 07/27/19 04:15 07/27/19 04:15 07/26/19 08:00 Oxygen Delivery Method Room Air Weight: 294 lb 8 oz Body Mass Index (BMI) 46.1 Intake and Output for Last 24 Hours 07/25/19 07/26/19 07/27/19 23:59 23:59 23:59 Intake Total 1176.82 / 1176.82 Output Total 1000 / 1000 Balance 176.82 / 176.82 General: Alert, Oriented x3 Abdomen: Soft, Non Tender, Non-Distended, - - ff below U Laboratory Results 07/27/19 06:25: POC Glucose 79 Current Medications Acetaminophen (Tylenol) 1,000 mg PO Q8H PRN PRN PRN Reason: Pain Score 1-310 Last Admin: 07/26/19 20:10 Dose: 1,000 mg Documented by: Bisacodyl (Dulcolax) 10 mg RECTAL UD PRN PRN Reason: If no BM Dibucaine (Dibucaine) 1 applic TOPICAL TID PRN PRN; Protocol PRN Reason: Discomfort Last Admin: 07/26/19 09:33 Dose: 1 tube Documented by: Glucagon () 1 mg IM .X1 PRN PRN Reason: Hypoglycemia Hydrocortisone (Hytone) 1 applic TOPICAL TID PRN PRN; Protocol PRN Reason: Discomfort Dextrose (Dextrose 10%-Water) 250 mls @ 999 mls/hr IV X1 PRN; Protocol PRN Reason: HYPOGLYCEMIA Methylergonovine Maleate (Methergine) 0.2 mg IM X1 PRN PRN Reason: Excess bleeding/uterine atony Naproxen (Naprosyn) 500 mg PO Q8H PRN PRN PRN Reason: Pain Score 1-310 Last Admin: 07/27/19 04:15 Dose: 500 mg Documented by: Ondansetron HCl (Zofran) 4 mg IV Q4H PRN PRN PRN Reason: Nausea Oxycodone HCl (Oxyir) 5 - 10 mg PO Q4H PRN PRN PRN Reason: Pain Score 4-10/10 Senna/Docusate Sodium (Senokot-S, Clair-Colace) 1 - 2 tablet PO DAILY PRN PRN PRN Reason: Constipation Last Admin: 07/26/19 09:35 Dose: 2 tablet Documented by: Simethicone (Mylicon) 80 mg PO PCHS PRN PRN Reason: Indigestion/Stomach pain Last Admin: 07/27/19 00:38 Dose: 80 mg Documented by: Sodium Chloride () 5 - 15 ml IV UD PRN PRN Reason: SALINE FLUSH Last Admin: 07/26/19 08:24 Dose: 10 ml Documented by: Medical Necessity - Tobacco Use Smoking Status: Never smoker Assessment/Plan All Active Problems (Last Reviewed 07/24/19 @ 15:14 by Jocy Silva) SROM (spontaneous rupture of membranes) (Acute) IUD contraception (Acute) Gestational diabetes (Acute) Anemia (Acute) Vitamin D imbalance (Acute) Bacteriuria during (Acute) Hypothyroid (Acute) (Acute) Family history of Down syndrome (Acute) History of gastric surgery (Acute) BMI 40.0-44.9, adult (Acute) Supervision of high risk , antepartum (Acute) Abnormal glucose affecting (Resolved) Headache in , antepartum (Resolved) s/p PPD # 1 1. routine post delivery care 2. breast feeding- support given 3. rh positive 4. rubella immune 5. GDM-last glucose wnl.
[2019-07-27 09:55] VITALS: BP 113/61; PULSE 72; RESP 16; TEMP 36.4
[2019-07-27] MEDS: Acetaminophen 500 MG Tablet 1000 MG PO ×2 (13:10→23:32)
[2019-07-27] MEDS: Senna/Docusate Sodium 1 Tablet PO (13:10)
[2019-07-27 13:19] VITALS: BP 109/57; PULSE 69; RESP 16; TEMP 36.7
[2019-07-27] MEDS: Hydrocortisone 2.5% Crm 1 APPLIC TOPICAL (18:32)
[2019-07-27] MEDS: Dibucaine 30 GM Tube 1 APPLIC TOPICAL (18:34)
[2019-07-27 19:30] VITALS: BP 103/59; PULSE 74; RESP 18; TEMP 36.3
[2019-07-28] MEDS: Senna/Docusate Sodium 1 Tablet PO (01:56)
[2019-07-28] MEDS: Naproxen 250 MG Tablet 500 MG PO ×2 (01:56→13:52)
[2019-07-28 01:57] VITALS: BP 101/66; PULSE 72; RESP 18; TEMP 36.3
[2019-07-28 08:00] VITALS: BP 112/76; PULSE 80; RESP 16; TEMP 36.2
[2019-07-28] MEDS: Bisacodyl 10 MG Suppository RECTAL (08:23)
--- NOTE | 2019-07-28 10:20 | PCM.PN.OB ---
Patient Problems: Active and Suspected Problems (Last Reviewed 07/24/19 @ 15:14 by Jocy Silva) SROM (spontaneous rupture of membranes) (Acute) Subjective: doing well no complaints - Physical Exam Vitals/I&O's: Vital Signs Temp Pulse Resp BP Pulse Ox 97.1 F L 80 16 112/76 95 07/28/19 08:00 07/28/19 08:00 07/28/19 08:00 07/28/19 08:00 07/26/19 08:00 Oxygen Delivery Method Room Air Weight: 294 lb 8 oz Body Mass Index (BMI) 46.1 Intake and Output for Last 24 Hours 07/26/19 07/27/19 07/28/19 23:59 23:59 23:59 Intake Total 1176.82 / 1176.82 Output Total 1000 / 1000 Balance 176.82 / 176.82 General: Alert, Oriented x3 Current Medications Acetaminophen (Tylenol) 1,000 mg PO Q8H PRN PRN PRN Reason: Pain Score 1-310 Last Admin: 07/27/19 23:32 Dose: 1,000 mg Documented by: Bisacodyl (Dulcolax) 10 mg RECTAL UD PRN PRN Reason: If no BM Last Admin: 07/28/19 08:23 Dose: 10 mg Documented by: Dibucaine (Dibucaine) 1 applic TOPICAL TID PRN PRN; Protocol PRN Reason: Discomfort Last Admin: 07/27/19 18:34 Dose: 1 tube Documented by: Glucagon () 1 mg IM .X1 PRN PRN Reason: Hypoglycemia Hydrocortisone (Hytone) 1 applic TOPICAL TID PRN PRN; Protocol PRN Reason: Discomfort Last Admin: 07/27/19 18:32 Dose: 1 applicatio Documented by: Dextrose (Dextrose 10%-Water) 250 mls @ 999 mls/hr IV X1 PRN; Protocol PRN Reason: HYPOGLYCEMIA Methylergonovine Maleate (Methergine) 0.2 mg IM X1 PRN PRN Reason: Excess bleeding/uterine atony Naproxen (Naprosyn) 500 mg PO Q8H PRN PRN PRN Reason: Pain Score 1-3/10 Last Admin: 07/28/19 01:56 Dose: 500 mg Documented by: Ondansetron HCl (Zofran) 4 mg IV Q4H PRN PRN PRN Reason: Nausea Oxycodone HCl (Oxyir) 5 - 10 mg PO Q4H PRN PRN PRN Reason: Pain Score 4-10/10 Senna/Docusate Sodium (Senokot-S, Clair-Colace) 1 - 2 tablet PO DAILY PRN PRN PRN Reason: Constipation Last Admin: 07/28/19 01:56 Dose: 2 tablet Documented by: Simethicone (Mylicon) 80 mg PO PCHS PRN PRN Reason: Indigestion/Stomach pain Last Admin: 07/27/19 00:38 Dose: 80 mg Documented by: Sodium Chloride () 5 - 15 ml IV UD PRN PRN Reason: SALINE FLUSH Last Admin: 07/26/19 08:24 Dose: 10 ml Documented by: Medical Necessity - Tobacco Use Smoking Status: Never smoker Assessment/Plan All Active Problems (Last Reviewed 07/24/19 @ 15:14 by Jocy Silva) SROM (spontaneous rupture of membranes) (Acute) IUD contraception (Acute) Gestational diabetes (Acute) Anemia (Acute) Vitamin D imbalance (Acute) Bacteriuria during (Acute) Hypothyroid (Acute) (Acute) Family history of Down syndrome (Acute) History of gastric surgery (Acute) BMI 40.0-44.9, adult (Acute) Supervision of high risk , antepartum (Acute) Abnormal glucose affecting (Resolved) Headache in , antepartum (Resolved) s/p PPD # 2 1. routine post delivery care 2. breast feeding- support given 3. rh positive 4. rubella immune check 2 hour gtt in 6 weeks
--- NOTE | 2019-07-28 10:22 | DCINST_ITS ---
Discharge Diet: No Restrictions Discharge Activity: Return to Normal Activity, May not drive while taking narcotic pain medications., May Shower May resume sexual activity in: 4-6 weeks Call your doctor if your incision/area has: Continuous Slow Oozing, Sudden Increased Bleeding, Increased Pain/ Swelling, Increased Redness, Foul Smelling Discharge Additional Instructions: If you experience any of the following, contact your healthcare provider. * Bleeding that soaks a pad every hour for 2 hours * Fever 100.4 or higher * Unrelieved incision or abdominal pain * Swelling, redness, discharge or bleeding from your incision or episiotomy site * Your incision begins to separate * Problems urinating (including inability to urinate or burning while urinating). * Visual changes * Severe headache * Flu-like symptoms * Pain or redness in one of both of your breasts * Pain, warmth, tenderness or swelling in your legs, especially the calf area * Frequent nausea and vomiting * Symptoms of depression or anxiety If you experience any of the following, call 911 or go to the nearest Emergency Room. * Chest pain * Problems breathing * Seizure activity * Partial or complete paralysis of a body part, slurred speech, weakness or drooping of the face, or a sudden inability to walk or hold your balance Allergies/Adverse Reactions: Allergies No Known Allergies Allergy (Verified 07/25/19 20:02) Medications to take at Discharge buspirone 10 mg tablet 10 mg PO BID 08/19/17 trazodone 50 mg tablet 100 mg PO QHS tab 08/19/17 ferrous sulfate 325 mg (65 mg iron) tablet 325 mg PO DAILY 12/22/18 fiber 1 cap PO DAILY cap 12/22/18 Blood Sugar Diagnostic [Blood Glucose Test] See Rx Instructions .ROUTE .MEDSUPPLY 07/25/19 Blood-Glucose Meter [Contour] See Rx Instructions .ROUTE .MEDSUPPLY 07/25/19 Famotidine 20 mg PO DAILY 07/25/19 Hydroxyzine Pamoate 25 mg PO PRN PRN 07/25/19 Lancets [Super Thin Lancets] See Rx Instructions .ROUTE .MEDSUPPLY 07/25/19 Pnv,Calcium 72/Iron/Folic Acid [ Plus (calcium carb)] 1 tab PO QDAY 07/25/19 Promethazine HCl 12.5 mg PO TID PRN 07/25/19 Naproxen [Naprosyn] 250 - 500 mg PO Q8H PRN PRN #30 tab 07/28/19 The following prescriptions were given: Naproxen [Naprosyn] 250 - 500 mg PO Q8H PRN PRN #30 tab PRN Reason: MILD PAIN Transmission Status: Pending to [facility] Please Follow Up With: Norma Lopez MD - [phone] When: Call to make an appointment with your doctor in 6 weeks. If you had elev ated Blood pressure or 4th degree laceration you will need to be seen in 2 weeks. Primary Care Physician: Buzz Castañeda MD [Primary Care Provider] - Test Results: Test results from this visit will be discussed in further detail at your follow- up appointment, if applicable.
[2019-07-28 15:51] VITALS: BP 108/78; PULSE 78; RESP 16; TEMP 36.3
--- NOTE | 2019-07-28 16:26 | CASEMGMT ---
Social Work Assessment Labor and Delivery Unit Date of Referral:?07.27.2019 Time of Referral:?0418 Date of Intervention:?07.28.2019 Time of Intervention:?1250 ? Referred by:?Dr. Lopez ? Reason for Referral:?baby admitted to [facility] ? PSYCHOSOCIAL HISTORY: ?History obtained from:?medical records and from patient/mother of baby (MOB) Asia Jay. ?Educated MOB that this adjusto writer operator provides social work services to [facility] labor and delivery unit, as well as to the [facility], so as to provide continuity off care to families admitted to both units ? Household composition:?MOB and FOB currently live with MOB's mother. ?MOB states home situation is safe and adequate. ? ? Patient's parent/guardian status:?HOA is age 29, father of baby (FOB) Gilberto Jay since March 2019. ??HOA and FOB, though only a short time, have been together for 6 years. ??MOB denies any form of abuse, control, intimidation or coercion in relationship with FOB. ??Minor children include only Denis, born on 07.26.2018. ?? ? Medical History:?HOA is G2, P0 to 1 after delivering Denis. ? care good, starting at 8 weeks gestation. ?MOB had gestational diabetes. ??Plan for IUD for control ??Baby born with 8 and 9 's, at 1 and 5 minutes of life. ? ? Developmental Concerns:?No identified concerns for baby. ??There is a family history of Down's Syndrome with Denis's maternal uncle, so HOA's brother. ? ? Educational Status:??HOA just graduated from college, received a degree in medical billing and coding. ??HOA is able to read, write, and to understand what is read. ? ? Health Care Coverage:?[employer].?? ? Financial Status:?HOA is employed at [employer] as a ?[employer]. ?INNA previously worked on the [employer], but recently left his job due to long work hours away. ??FOB plans to look for a new job once baby and MOB are home and settled. ??MOB states will be getting some short term disability ?Benefits as well as to have a small savings to help get through ?Maternity leave. ? ? Childcare/Caregiver(s):?MOB and FOB. ?When parents go back to work, MOB's mother a few days a week and then a few Confucianist babysitters. ? ? Transportation:?No issues reported.?? ? Programs/Agencies Involved:?No agency involvement. ?Agrees to a Help Me Grow referral. ? ? Behavioral Health Issues:?MOB reports history of depression, anxiety, and then after MOB's brother a few years ago MOB developed PTSD (was present and witnessing medical complications with the brother's health). ???MOB reports has tried counseling in the past, but ?Most recently has been treated with medications. ?Was on Buspar and Hydroxyzine during . ??MOB reports to have Xanax at home but did not take this at all during . ??MOB plans to talk with PCP about a safe antidepressant for MOB to take while breast feeding the baby. ???MOB reports years ago has thought of suicide, though no planning, intent, or attempts. ?MOB reports it has been a long time since has had these type of thoughts. ?Does report that during did have a lot of self doubting thoughts, but not of suicide. MOB denies any history of ?substance use for self or FOB. ??No tobacco use. ??No drug screens noted in the MOB's medical record. ? ? Family Stressors:?Baby admitted to the NICU.?? ? Support Systems:?MOB reports support from FOB, MOB's mother, father, and other family members.? Assessment Met with MOB in room on labor and delivery unit at [facility]. ?MOB cooperative, pleasant, and non defensive with social work visit. ?MOB reports to have all needed supplies to get started for baby including a car seat and safe sleep space. ???MOB reports will have help at home going. ?MOB reports has been worried about depression, but has felt much better since delivery than had previously anticipated. ?MOB reports she felt an instant connection to the baby, which helped to ease some of MOB's worries that were present during . ?MOB receptive to conversation about mood and anxiety disorders, as evidenced by good eye contact and engagement in conversation. ??MOB reports to be open about feelings with FOB and with MOB's mother, so has two people that MOB can talk to. ??MOB denies any other needs at this time. ???MOB agrees to [facility] referral. ??Accepted resource list for [facility]. ?Accepted resource information on depression and anxiety, as well as resources for such. ?Safe sleeping and shaken baby prevention provided. ? ? Help Me Grow referral submitted via secure web based referral system this date, as per MOB's stated consent for referral. ? Plan Baby [place] to discharge to parents when medical ready, which MOB is hoping will be later today. ? Response to Plan:?MOB?does express understanding of proposed plan. ? DENISSE Nagy?
--- NOTE | 2019-07-28 17:15 | NURSING ---
Met with patient today at 2pm to discuss her feeding plan going home. Mother has been supplementing her with formula due to low blood sugars on baby, mother is pumping every three hours and it was encouraged to continue doing so. Mother is also encouraged to follow up with IBCLC in 1-2 days to check on milk supply as mother appears to possibly have decreased glandular tissue. Mother wanted to research ways to increase her milk supply but focus was put on pumping and feeding every 3 hours at a min. we also reviewed her at home medications and discussed the level in risk according to Dr Ventura's book. Mother is okay with current feeding plan but is nervous her milk will not come in. Reports having weight loss surgery that decreases the amount of fluid she can consume at one time, discussed taking small sips off and on throughout day and importance to stay hydrated similar to when . Mother going to continue latching baby and also discussed ways to follow up via tele medicine.
== END 2019-07-28 16:35 | disposition home or self-care (01) | DRG 807 ==
LOC: WPOUT 18:55 → WP 18:56
PROVIDERS: Admitting Provider Obstetrics & Gynecology; Visit Provider Obstetrics & Gynecology
DX: O24.420 Gestational diabetes mellitus in childbirth, diet controlled (principal); O70.1 Second degree perineal laceration during delivery; O99.02 Anemia complicating childbirth; D64.9 Anemia, unspecified; O99.284 Endocrine, nutritional and metabolic diseases complicating childbirth; E03.9 Hypothyroidism, unspecified; O99.844 Bariatric surgery status complicating childbirth; O99.344 Other mental disorders complicating childbirth; F32.9 Major depressive disorder, single episode, unspecified; F41.9 Anxiety disorder, unspecified; Z79.899 Other long term (current) drug therapy; Z3A.39 39 weeks gestation of pregnancy; Z37.0 Single live birth
CPT/HCPCS: 59025; 59050; 82962; 85025; 86850; 86900; 86901; 99218; J7120; A4216; G0378; J7799

== ENCOUNTER → 2021-08-29 | Outpatient (CLI) | payer OTHER, MEDICAID, SELFPAY ==
[2021-09-01 22:06] LABS: HPV Genotype 16, Aptima Negative (Negative)
[2021-09-02 09:49] LABS: HPV APTIMA, High Risk Positive (Negative); HPV Genotype 18,45 Aptima Negative (Negative)
== END | disposition home or self-care (01) ==
LOC: LABSPEC 09:37
PROVIDERS: Visit Provider Obstetrics & Gynecology
DX: Z12.4 Encounter for screening for malignant neoplasm of cervix (principal)
CPT/HCPCS: 87624; 88175; G0145

== ENCOUNTER → 2021-09-04 | Outpatient (CLI) | payer OTHER, MEDICAID, SELFPAY ==
--- NOTE | 2021-09-04 13:02 | US_ITS ---
STUDY: ULTRASOUND OF THE FEMALE PELVIS - COMPLETE REASON FOR EXAM: Female, 31 years old. IUD placement -- PELVIC PAIN -- PAIN WITH INTERCOURSE LMP: 07/05/2021. TECHNIQUE: Transabdominal and Transvaginal TECHNICAL QUALITY: Adequate. COMPARISON: None. FINDINGS: The uterus is anteverted and is in a midline position. The uterus measures 8.7 cm x 6.4 cm x 4.3 cm. Normal uterine cervix. The endometrium measures 4 mm in thickness, and is hyperechoic. There is no demonstrated endometrial mass. There is no demonstrated myometrial mass. I.U.D. - The patient does have an I.U.D. . The IUD is seen in the lower uterine segment/cervix. The right ovary is visualized. The right ovary measures 4.7 cm x 4.4 cm x 3.6 cm. There is a 3.8 cm x 4 cm x 2.9 cm right ovarian cyst. There is no visualized right adnexal mass or complex lesion. There is normal arterial and normal venous vascularity. The left ovary is visualized. The left ovary measures 3 cm x 3.2 cm x 1.5 cm. There is no left ovarian cyst or ovarian mass. There is no visualized left adnexal mass or complex lesion. There is normal arterial and normal venous vascularity. There is no fluid in the cul-de-sac. The pre void volume of the bladder was 560 ml. US/Transvaginal Non- IMPRESSION: The IUD is seen within the lower uterine segment/cervix. 3.8 cm x 4 cm x 2.9 cm right ovarian cyst. Electronically Signed: Brennan Smith MD at 14:42 EDT ,
--- NOTE | 2021-09-04 13:02 | US_ITS ---
STUDY: ULTRASOUND OF THE FEMALE PELVIS - COMPLETE REASON FOR EXAM: Female, 31 years old. IUD placement -- PELVIC PAIN -- PAIN WITH INTERCOURSE LMP: 07/05/2021. TECHNIQUE: Transabdominal and Transvaginal TECHNICAL QUALITY: Adequate. COMPARISON: None. FINDINGS: The uterus is anteverted and is in a midline position. The uterus measures 8.7 cm x 6.4 cm x 4.3 cm. Normal uterine cervix. The endometrium measures 4 mm in thickness, and is hyperechoic. There is no demonstrated endometrial mass. There is no demonstrated myometrial mass. I.U.D. - The patient does have an I.U.D. . The IUD is seen in the lower uterine segment/cervix. The right ovary is visualized. The right ovary measures 4.7 cm x 4.4 cm x 3.6 cm. There is a 3.8 cm x 4 cm x 2.9 cm right ovarian cyst. There is no visualized right adnexal mass or complex lesion. There is normal arterial and normal venous vascularity. The left ovary is visualized. The left ovary measures 3 cm x 3.2 cm x 1.5 cm. There is no left ovarian cyst or ovarian mass. There is no visualized left adnexal mass or complex lesion. There is normal arterial and normal venous vascularity. There is no fluid in the cul-de-sac. The pre void volume of the bladder was 560 ml. US/Pelvic (Non ) IMPRESSION: The IUD is seen within the lower uterine segment/cervix. 3.8 cm x 4 cm x 2.9 cm right ovarian cyst. Electronically Signed: Brennan Smith MD at 14:42 EDT ,
== END | disposition home or self-care (01) ==
PROVIDERS: PCP Nurse Practitioner Family; Referring Provider Obstetrics & Gynecology; Visit Provider Obstetrics & Gynecology
DX: R10.2 Pelvic and perineal pain (principal)
CPT/HCPCS: 76830; 76856; 93976

== ENCOUNTER → 2021-10-16 | Outpatient (CLI) | payer OTHER, MEDICAID, SELFPAY ==
--- NOTE | 2021-10-16 18:32 | US_ITS ---
STUDY: ULTRASOUND OF THE FEMALE PELVIS - COMPLETE REASON FOR EXAM: Female, 31 years old. F/U OV CYST TECHNIQUE: Endovaginal. Transvaginal US was obtained to better visualized the ovaries. COMPARISON: Sep 04 2021 1:28pm . FINDINGS: The uterus is anteverted and is in a midline position. The uterus measures 8.7x6.1 cm. There is a Nabothian cyst of the cervix. The endometrium measures 2 mm in thickness, and is hyperechoic. There is no demonstrated endometrial mass. There is no demonstrated myometrial mass. I.U.D. - The patient does have an I.U.D. The right ovary is visualized. The right ovary measures 2.4x1.6 cm. There is no right ovarian cyst or ovarian mass. There is no visualized right adnexal mass or complex lesion. There is normal arterial and normal venous vascularity. The left ovary is visualized. The left ovary measures 2.9x2.3 cm. There is 14mm left ovarian cyst. There is no visualized left adnexal mass or complex lesion. There is normal arterial and normal venous vascularity. There is no fluid in the cul-de-sac. US/Transvaginal Non- IMPRESSION: There is a Nabothian cyst of the cervix. IUD in place There is resolution of the right ovary cyst. There is a new left 14mm ovary cyst or dominant follicle. Electronically Signed: Riley Gambino MD at 19:18 EDT ,
== END | disposition home or self-care (01) ==
LOC: US 18:30
PROVIDERS: PCP Nurse Practitioner Family; Visit Provider Nurse Practitioner Women's Health
DX: N88.8 Other specified noninflammatory disorders of cervix uteri (principal); N83.202 Unspecified ovarian cyst, left side
CPT/HCPCS: 76830

== ENCOUNTER → 2022-08-29 | Outpatient (CLI) | payer OTHER, MEDICAID, SELFPAY ==
[2022-08-29 09:51] LABS: hCG Titer Quant., Serum 43 mIU/mL (1-3)
[2022-08-29 10:30] LABS: HIV - WCH Non-Reactive (Nonreactive); Hepatitis C Antibody Non-Reactive (Nonreactive); Syphilis Antibodies Non-reactive
[2022-08-30 07:08] LABS: HSV 2 IgG < 0.91 index (0.00-0.90)
[2022-08-30 22:06] LABS: Chlamydia By Nucleic Acid AMP Negative (Negative); Gonococcus By Nucleic Acid AMP Negative (Negative)
[2022-09-05 16:10] LABS: HPV APTIMA, High Risk Negative (Negative)
== END | disposition home or self-care (01) ==
PROVIDERS: PCP Nurse Practitioner Family; Referring Provider Nurse Practitioner Women's Health; Visit Provider Nurse Practitioner Women's Health
DX: Z12.4 Encounter for screening for malignant neoplasm of cervix (principal); Z20.2 Contact with and (suspected) exposure to infections with a predominantly sexual mode of transmission
CPT/HCPCS: 36415; 84702; 86695; 86696; 86703; 86780; 86803; 87491; 87591; 87624; 88175; G0145

== ENCOUNTER → 2022-09-11 | Outpatient (CLI) | payer OTHER, MEDICAID, SELFPAY | END | disposition home or self-care (01) | LOC: LABSPEC 17:06 | PROVIDERS: PCP Nurse Practitioner Family; Referring Provider Advanced Practice Midwife; Visit Provider Advanced Practice Midwife | DX: O09.90 Supervision of high risk pregnancy, unspecified, unspecified trimester (principal) | CPT/HCPCS: 87077; 87086; 87088; 87186; 87491; 87591 ==

== ENCOUNTER → 2022-10-15 | Outpatient (CLI) | payer OTHER, MEDICAID, SELFPAY ==
[2022-10-15 11:51] LABS: Absolute Lymphocyte Count 1.63 X10^3/uL (0.83-4.51); Absolute Neutrophil Count 4.5 X10^3/uL (2.0-7.7); Basophil# 0.03 X10^3/uL; Basophil% 0.5 % (0-1); Eosinophil# 0.09 X10^3/uL; Eosinophils% 1.4 % (0-5); Hematocrit 37.5 % (37-47); Hemoglobin 12.1 g/dL (12.0-15.0); Lymphocyte # 1.63 X10^3/ul (0.83-4.51); Lymphocyte % 24.6 % (19-41); Mean Corp Hgb Conc 32.3 g/dL (32-36); Mean Corpuscular Hgb 27.4 pg (27.0-32.0); Monocyte# 0.31 X10^3/uL; Monocyte% 4.7 % (0-10); NRBC Flagged by Analyzer 0 % (0-5); Neutrophil # 4.54 X10^3/uL (2.7-7.7); Neutrophil % 68.5 % (47-70); Platelet Count 255 K/mm3 (150-450); RBC Distribution Width CV 13.8 % (11.6-14.6); RBC Distribution Width SD 42.8 fl (35.1-43.9); Red Blood Count 4.41 M/mm3 (4.2-5.4); White Blood Count 6.6 K/mm3 (4.4-11.0)
[2022-10-15 12:16] LABS: Hemoglobin A1c 5.2 % (3.8-5.6)
[2022-10-15 12:30] LABS: NATERA MAILED SPECIMEN
[2022-10-15 13:06] LABS: Calcium,Total 8.4 mg/dL (8.5-10.1); Ferritin 13 ng/mL (8-252); Glucose Challenge Gest 1H 50g 155 mg/dL (70-140); HIV - WCH Non-Reactive (Nonreactive); Hepatitis B Surface Antigen Non-Reactive (Nonreactive); Hepatitis C Antibody Non-Reactive (Nonreactive); Iron 94 ug/dL (50-170); Iron Binding Capacity,Total 359 ug/dL (250-450); Rubella IgG Reactive (Nonreactive); Syphilis Antibodies Non-reactive; Vitamin B12 399 pg/mL (211-911)
[2022-10-18 06:09] LABS: Thyroglobulin Antibody 7.4 IU/mL (0.0-0.9); Thyroid Peroxidase AB 137 IU/mL (0-34); Vitamin B1, Thiamine 105.3 nmol/L (66.5-200.0)
== END | disposition home or self-care (01) ==
LOC: PAVLAB 11:17
PROVIDERS: Advanced Practice Midwife; PCP Nurse Practitioner Family; Referring Provider Obstetrics & Gynecology; Visit Provider Obstetrics & Gynecology
DX: O99.280 Endocrine, nutritional and metabolic diseases complicating pregnancy, unspecified trimester (principal); E05.00 Thyrotoxicosis with diffuse goiter without thyrotoxic crisis or storm; E06.3 Autoimmune thyroiditis; Z3A.00 Weeks of gestation of pregnancy not specified; Z98.890 Other specified postprocedural states
CPT/HCPCS: 36415; 82310; 82607; 82652; 82728; 82746; 82950; 83036; 83540; 83550; 84425; 85025; 86376; 86703; 86762; 86780; 86800; 86803; 86850; 86900; 86901; 87340

== ENCOUNTER 2022-10-26 07:04 | Outpatient (CLI) | payer OTHER, MEDICAID, SELFPAY ==
[2022-10-26 08:29] LABS: Glucose GTT-Gestation. Fasting 92 mg/dL (<105)
[2022-10-26 08:49] LABS: Thyroid Stim Hormone (TSH) 3.34 uIU/mL (0.358-3.74)
== END 2022-10-26 23:59 | disposition home or self-care (01) ==
LOC: LAB 07:06
PROVIDERS: PCP Nurse Practitioner Family; Referring Provider Advanced Practice Midwife; Visit Provider Advanced Practice Midwife
DX: E05.00 Thyrotoxicosis with diffuse goiter without thyrotoxic crisis or storm (principal)
CPT/HCPCS: 36415; 82951; 82952; 84439; 84443

== ENCOUNTER → 2023-02-04 | Outpatient (CLI) | payer OTHER, MEDICAID, SELFPAY | END | disposition home or self-care (01) | LOC: LABSPEC 15:31 | PROVIDERS: PCP Obstetrics & Gynecology; Referring Provider Advanced Practice Midwife; Visit Provider Advanced Practice Midwife | DX: N89.8 Other specified noninflammatory disorders of vagina (principal); E06.3 Autoimmune thyroiditis; E05.00 Thyrotoxicosis with diffuse goiter without thyrotoxic crisis or storm | CPT/HCPCS: 87070; 87205 ==

== ENCOUNTER → 2023-02-11 | Outpatient (CLI) | payer OTHER, MEDICAID, SELFPAY ==
[2023-02-11 11:07] LABS: Absolute Lymphocyte Count 1.77 X10^3/uL (0.83-4.51); Absolute Neutrophil Count 6.4 X10^3/uL (2.0-7.7); Basophil# 0.03 X10^3/uL; Basophil% 0.3 % (0-1); Eosinophil# 0.09 X10^3/uL; Hematocrit 33.2 % (37-47); Hemoglobin 10.5 g/dL (12.0-15.0); Lymphocyte # 1.77 X10^3/ul (0.83-4.51); Lymphocyte % 20.4 % (19-41); Mean Corp Hgb Conc 31.6 g/dL (32-36); Mean Corpuscular Volume 88.5 fL (81-99); Mean Platelet Vol. 9.1 fl (6.2-12.0); Monocyte# 0.34 X10^3/uL; Monocyte% 3.9 % (0-10); NRBC Flagged by Analyzer 0 % (0-5); Neutrophil # 6.39 X10^3/uL (2.7-7.7); Neutrophil % 73.7 % (47-70); Platelet Count 286 K/mm3 (150-450); RBC Distribution Width CV 12.8 % (11.6-14.6); RBC Distribution Width SD 41.5 fl (35.1-43.9); Red Blood Count 3.75 M/mm3 (4.2-5.4); White Blood Count 8.7 K/mm3 (4.4-11.0)
[2023-02-11 11:39] LABS: Free T3 1.8 pg/mL (2.18-3.98); T4 Free Direct 0.89 ng/dL (0.76-1.46); Thyroid Stim Hormone (TSH) 1.61 uIU/mL (0.358-3.74)
[2023-02-11 11:56] LABS: HIV - WCH Non-Reactive (Nonreactive); Syphilis Antibodies Non-reactive
[2023-02-12 04:07] LABS: Thyroid Peroxidase AB 107 IU/mL (0-34)
== END | disposition home or self-care (01) ==
PROVIDERS: Registered Nurse; PCP Obstetrics & Gynecology; Referring Provider Advanced Practice Midwife; Visit Provider Advanced Practice Midwife
DX: E05.00 Thyrotoxicosis with diffuse goiter without thyrotoxic crisis or storm (principal); E06.3 Autoimmune thyroiditis; Z98.890 Other specified postprocedural states
CPT/HCPCS: 36415; 84439; 84443; 84481; 85025; 86376; 86703; 86780

== ENCOUNTER → 2023-03-18 | Outpatient (CLI) | payer OTHER, MEDICAID, SELFPAY ==
--- NOTE | 2023-03-18 12:21 | US_ITS ---
STUDY: SECOND AND THIRD TRIMESTER OBSTETRICAL ULTRASOUND - LIMITED REASON FOR EXAM: Female, 32 years old 32 week US -- Growth LMP: July 30, 2022. PRIOR ULTRASOUND: None. TECHNIQUE: Transabdominal TECHNICAL QUALITY: Adequate. FINDINGS: There is a single intrauterine fetus. The fetus is in a breech presentation. There is demonstrated cardiac activity with a heart rate of 145 bpm. There is a normal amniotic fluid volume. The largest amniotic fluid pocket measures 7 cm x 3.2 cm. The amniotic fluid index (BERENICE) is 21.6 cm. The placenta is anterior in location and is not low lying. There are Grade 1 placental changes. The cervix measures 6.5 cm in length. BIOMETRY: BPD: 8.52 cm: 34 weeks, 2 days HC: 30.8 cm: 34 weeks, 2 days AC: 28.95 cm: 33 weeks, 0 days FL: 6.27 cm: 32 weeks, 3 days Age by LMP: 33 weeks, 0 days. SHLOMO by LMP: May 06, 2023. age by current US: 33 weeks, 3 days. SHLOMO by current US: May 03, 2023. Estimated weight: 2127 grams, +/- 319 grams, 45.2 percentile. US/OB Limited With Biometrics IMPRESSION: Single live intrauterine gestation with a mean gestational age of 33 weeks and 3 days. Electronically Signed: Brennan Smith MD at 12:41 EST ,
== END | disposition home or self-care (01) ==
LOC: OPUS 12:20
PROVIDERS: PCP Obstetrics & Gynecology; Referring Provider Obstetrics & Gynecology; Visit Provider Obstetrics & Gynecology
DX: O09.92 Supervision of high risk pregnancy, unspecified, second trimester (principal); Z86.32 Personal history of gestational diabetes; Z3A.00 Weeks of gestation of pregnancy not specified
CPT/HCPCS: 76816

== ENCOUNTER → 2023-04-08 | Outpatient (CLI) | payer OTHER, MEDICAID, SELFPAY ==
[2023-04-08 14:16] LABS: Group B Strep DNA By PCR Negative (Negative); Internal Control PASS; Probe Check PASS; Specimen Processing Control PASS
== END | disposition home or self-care (01) ==
LOC: LABSPEC 11:34
PROVIDERS: PCP Obstetrics & Gynecology; Referring Provider Registered Nurse; Visit Provider Registered Nurse
DX: Z34.90 Encounter for supervision of normal pregnancy, unspecified, unspecified trimester (principal); Z3A.00 Weeks of gestation of pregnancy not specified
CPT/HCPCS: 87081; 87653

== ENCOUNTER → 2023-04-15 | Outpatient (CLI) | payer OTHER, MEDICAID, SELFPAY ==
--- NOTE | 2023-04-15 08:45 | US_ITS ---
STUDY: SECOND AND THIRD TRIMESTER OBSTETRICAL ULTRASOUND - LIMITED REASON FOR EXAM: Female, 33 years old 36 week OB US LMP: Unknown. PRIOR ULTRASOUND: Prior study dated: 03/18/2023 TECHNIQUE: Transabdominal TECHNICAL QUALITY: Adequate. FINDINGS: There is a single intrauterine fetus. The fetus is in a cephalic presentation. There is demonstrated cardiac activity with a heart rate of 136 bpm. There is a normal amniotic fluid volume. The largest amniotic fluid pocket measures 6.7 cm. The amniotic fluid index (BERENICE) is 18.9 cm. The placenta is anterior in location and is not low lying. There are Grade 1 placental changes. The cervix measures 4.7 cm cm in length. BIOMETRY: BPD: 9.3 cm: 37 weeks, 6 days HC: 34 cm: 39 weeks, 1 days AC: 32.8 cm: 36 weeks, 5 days FL: 7.2 cm: 36 weeks, 5 days age by prior US: 33 weeks, 3 days. SHLOMO by prior US: 05/03/2023. age by current US: 37 weeks, 5 days. SHLOMO by current US: 05/01/2023. Estimated weight: 3106 grams, +/- 466 grams, 58 percentile. US/OB Limited With Biometrics IMPRESSION: Single live intrauterine fetus in cephalic presentation with an estimated gestational age of 37 weeks and 5 days. SHLOMO is 05/01/2023. Electronically Signed: Will Colon MD at 12:04 EST ,
== END | disposition home or self-care (01) ==
LOC: US 08:45
PROVIDERS: PCP Obstetrics & Gynecology; Referring Provider Obstetrics & Gynecology; Visit Provider Obstetrics & Gynecology
DX: O09.93 Supervision of high risk pregnancy, unspecified, third trimester (principal); E66.01 Morbid (severe) obesity due to excess calories; E05.00 Thyrotoxicosis with diffuse goiter without thyrotoxic crisis or storm; E06.3 Autoimmune thyroiditis; Z86.32 Personal history of gestational diabetes; Z98.890 Other specified postprocedural states; Z3A.36 36 weeks gestation of pregnancy; O99.213 Obesity complicating pregnancy, third trimester; O99.283 Endocrine, nutritional and metabolic diseases complicating pregnancy, third trimester
CPT/HCPCS: 76816

== ENCOUNTER 2023-05-07 08:00 | Inpatient (IN) | payer OTHER, MEDICAID, SELFPAY ==
[2023-05-07] VITALS (56 sets, daily range): BP systolic 116–144; BP diastolic 55–96; PULSE 71–100; TEMP 36.2–36.7; O2SAT 89–99; BMI 49.7
--- OUTSIDE RECORDS SUMMARY | 2023-05-07 08:31 | XMS RPT_ITS | CCD ---
Author Name Unknown Address [address] [place] [address] Organization [facility] Care Team Providers Care Potline Monitor Name Role Phone MARICRUZ TORRES Primary Care Unavailable Maricruz Torres Primary Care Provider Maricruz Torres CNP Primary Care Provider Maricruz Torres CNP Primary Care Provider Maricruz Torres CNP Primary Care Provider WILLIAM LINO Primary Care Unavailable LANE MANUEL Attending Unavailabl e LANE MANUEL Referring Unavailabl e WILLIAM LINO Primary Care Unavailable LANE MANUEL Attending Unavailabl e LANE MANUEL Referring Unavailabl e NONE, NONE Primary Care Unavailable NONE, NONE Consulting Unavailable MURRAY, KIMBER E Admitting Unavailable MURRAY, KIMBER E Attending Unavailable NONE, NONE Consulting Unavailable MURRAY, KIMBER E Consulting Unavailable MURRAY, KIMBER E Consulting Unavailable SABRA CANADA APRN Consulting Unavailable [place] PRODUCTION LINE OPERATOR~[id number], NANCIE Ramos Primary Ca re Unavailable MURRAY, KIMBER E Admitting Unavailable MURRAY, KIMBER E Attending Unavailable SABRA CANADA APRN Consulting Unavailable MURRAY, KIMBER E Consulting Unavailable MURRAY, KIMBER E Consulting Unavailable APOLLO ZIEGLER PA-C Admitting Unavailable APOLLO ZIEGLER PA-C Consulting Unavailable APOLLO ZIEGLER PA-C Attending Unavailable MARICRUZ TORRES Primary Care Unavailable NONE, NONE Consulting Unavailable MARICRUZ TORRES Consulting Unavailable MILES LUBIN Admitting Unavailable MILES LUBIN Attending Unavailable MARICRUZ TORRES Primary Care Unavailable MILES LUBIN Consulting Unavailable MARICRUZ TORRES Admitting Unavailable MARICRUZ TORRES Attending Unavailable MARICRUZ TORRES Primary Care Unavailable MARICRUZ TORRES Consulting Unavailable MARICRUZ TORRES Consulting Unavailable LANE MANUEL Admitting Unavailable LANE MANUEL Attending Unavailable MARICRUZ TORRES Primary Care Unavailable MARICRUZ TORRES Consulting Unavailable MARICRUZ TORRES Consulting Unavailable LANE MANUEL Consulting Unavailable MARICRUZ TORRES. Primary Care Unavailable MILES LUBIN Attending Unavaila KIMBER Callejas Attending Unavailab MARICRUZ Bishop Primary Care Unavailable JASMYN SIMENTAL Attending Unavailable MARICRUZ TORRES. Primary Care Unavailable MARICRUZ TORRES. Primary Care Unavailable KIMBER MURRAY Attending Unavailab KIMBER Martins Attending Unavailab MARICRUZ Bishop Primary Care Unavailable MARICRUZ TORRES Primary Care Unavailable KIMBER MURRAY Attending Unavailab magy Medications Current Medications Medication Drug Class(es) Dates Sig (Normalized) Sig (Original) ALPRAZolam 1 mg oral tablet (9 sources) Benzodiazepine take 1 tablet by mouth once daily as needed for sleep ALPRAZolam (XANAX) 1 MG tablet Take 1 (one) tablet (1 mg total) by mouth nightly as needed for sleep .0.5mg PRN . 0 Active 24 hr buPROPion hydrochloride 150 mg extended release oral tablet (5 sources) Aminoketone Start: 12-28-2021 buPROPion (WELLBUTRIN XL) 150 MG 24 hr tablet calcium polycarbophil 625 mg oral tablet (10 sources) take 1 tablet by mouth once daily polycarbophil (FIBERCON) 625 mg tablet Take 1 (one) tablet (625 mg total) by mouth daily . 0 Active diphenhydrAMINE hydrochloride 25 mg oral capsule (3 sources) Histamine-1 Receptor Antagonist take 1 capsule by mouth every six hours as needed diphenhydrAMINE (BENADRYL) 25 mg capsule Take 1 (one) capsule (25 mg total) by mouth every 6 (six) hours as needed for itching . 0 Active ferrous gluconate 324 mg oral tablet (1 source) take 1 tablet by mouth once daily at breakfast ferrous gluconate 236 mg (27 mg iron) Tab Take 324 mg by mouth daily with breakfast . 0 Active levothyroxine sodium 0.05 mg oral tablet (3 sources) l-Thyroxine Start: 11-20-2022 End: 11-20-2023 take 1 tablet by mouth once daily levothyroxine (SYNTHROID, LEVOTHROID) 50 MCG tablet Take 1 (one) tablet (50 mcg total) by mouth daily . 30 tablet 11 11/20/2022 11/20/2023 Active omeprazole 20 mg delayed release oral capsule (8 sources) Proton Pump Inhibitor take 1 capsule by mouth twice daily omeprazole (PRILOSEC) 20 MG capsule Take 1 (one) capsule (20 mg total) by mouth 2 (two) times a day . 0 Active vitamin with Ca-Iron-FA 27-1 mg Tab (10 sources) take 1 tablet by mouth once daily vitamin with Ca-Iron-FA 27-1 mg Tab Take 1 (one) tablet by mouth daily . 0 Active Completed/Discontinued Medications Medication Drug Class(es) Dates Sig (Normalized) Sig (Original) busPIRone hydrochloride 10 mg oral tablet (6 sources) End: 01-15-2022 take 1 tablet by mouth three times daily busPIRone (BUSPAR) 10 MG tablet Take 10 mg by mouth 3 (three) times a day . 0 01/15/2022 Discontinued (Therapy completed) doxycycline hyclate 100 mg oral capsule (2 sources) Tetracycline-cla ss Drug End: 08-18-2020 take 1 capsule by mouth twice daily doxycycline hyclate (VIBRAMYCIN) 100 MG capsule Take 100 mg by mouth 2 (two) times a day . 0 08/18/2020 Discontinued (Therapy completed) esomeprazole 20 mg delayed release oral capsule (6 sources) Proton Pump Inhibitor End: 01-15-2022 take 2 capsules by mouth once daily before breakfast esomeprazole (NEXIUM) 20 MG capsule Take 40 mg by mouth every morning before breakfast . 0 01/15/2022 Discontinued (Therapy completed) methIMAzole 5 mg oral tablet (8 sources) Thyroid Hormone Synthesis Inhibitor Start: 09-30-2020 End: 06-19-2022 methIMAzole (TAPAZOLE) 5 MG tablet Take 2 tablets (10mg) every MWF, Take 1 tablet (5mg) every TuThSatSun. . 50 tablet 6 09/30/2020 06/19/2022 Discontinued Problems Active Problems Problem Classification Problem Date Documented Date Episodic/Chronic Menstrual disorders (3 sources) Amenorrhea, unspecified; Translations: [AMENORRHEA UNSPECIFIED] Onset: 08-31-2022 Chronic Other complications of (1 source) Hypothyroidism in ; Translations: [Endocrine, nutritional and metabolic diseases complicating , third trimester] 03-04-2023 Episodic Other complications of (2 sources) Endocrine, nutritional and metabolic diseases complicating , third trimester; Translations: [Endocrine, nutritional and metabolic diseases complicating , third trimester] Onset: 03-04-2023 Episodic Thyroid disorders (20 sources) Hyperthyroidism; Translations: [Graves' disease] Onset: 07-10-2020 07-10-2020 Chronic Past or Other Problems Problem Classification Problem Date Documented Da te Episodic/Chronic Urinary tract infections (3 sources) Acute cystitis without hematuria; Translations: [ACUTE CYSTITIS WITHOUT HEMATURIA] Onset: 04-11-2022 Episodic Results Test Name Value Interpretation Reference Range Facil ity Vital Signs Date Time Vital Sign Value Performing Clinician Faci lity 03-04-2023 13:17-0400 Body mass index (BMI) [Ratio] 48.69 kg/m2 Jasmyn Figueroafreida JAMES Work Phone: [facility] 03-04-2023 13:17-0400 Body weight 141.02 kg Jasmyn Simental [employer] Work Phone: [facility] 03-04-2023 13:17-0400 Diastolic blood pressure 75 mm[Hg] Jasmyn Figueroafreida JAMES Work Phone: [facility] 03-04-2023 13:17-0400 Heart rate 83 /min Jasmyn Simental [employer] Work Phone: [facility] 03-04-2023 13:17-0400 Systolic blood pressure 113 mm[Hg] Jasmyn Figueroafreida JAMES Work Phone: [facility] 11-20-2022 14:34-0400 Body mass index (BMI) [Ratio] 47.08 kg/m2 Kimber Murray [employer] Work Phone: [facility] 11-20-2022 14:34-0400 Body weight 136.35 kg Kimber Murray [employer] Work Phone: [facility] 11-20-2022 14:34-0400 Diastolic blood pressure 67 mm[Hg] Kimber Murray [employer] Work Phone: [facility] 11-20-2022 14:34-0400 Heart rate 76 /min Kimber Murray [employer] Work Phone: [facility] 11-20-2022 14:34-0400 Systolic blood pressure 101 mm[Hg] Kimber Murray [employer] Work Phone: [facility] 06-19-2022 07:41-0500 Body mass index (BMI) [Ratio] 45.31 kg/m2 Kimber Murray [employer] Work Phone: [facility] 06-19-2022 07:41-0500 Body weight 131.23 kg Kimber Murray [employer] Work Phone: [facility] 06-19-2022 07:41-0500 Diastolic blood pressure 85 mm[Hg] Kimber Murray [employer] Work Phone: [facility] 06-19-2022 07:41-0500 Heart rate 70 /min Kimber Murray [employer] Work Phone: [facility] 06-19-2022 07:41-0500 Systolic blood pressure 123 mm[Hg] Kimber Murray [employer] Work Phone: [facility] 01-15-2022 15:51-0400 Body height 170.2 cm Miles Lubin PA- C Work Phone: [facility] 01-15-2022 15:51-0400 Body mass index (BMI) [Ratio] 44.95 kg/m2 Miles Lubin PA-C Work Phone: [facility] 01-15-2022 15:51-0400 Body weight 130.18 kg Miles Lubin PA- C Work Phone: [facility] 01-15-2022 15:51-0400 Diastolic blood pressure 74 mm[Hg] Miles Lubin PA-C Work Phone: [facility] 01-15-2022 15:51-0400 Heart rate 90 /min Miles Kleinmann PA- C Work Phone: [facility] 01-15-2022 15:51-0400 Systolic blood pressure 113 mm[Hg] Miles Kleinmann PA-C Work Phone: [facility] 10-06-2021 08:12-0400 Body height 170.2 cm Miles Kleinmann PA- C Work Phone: [facility] 10-06-2021 08:12-0400 Body mass index (BMI) [Ratio] 47.14 kg/m2 Miles Kleinmann PA-C Work Phone: [facility] 10-06-2021 08:12-0400 Body weight 136.53 kg Miles Kleinmann PA- C Work Phone: [facility] 10-06-2021 08:12-0400 Diastolic blood pressure 80 mm[Hg] Miles Kleinmann PA-C Work Phone: [facility] 10-06-2021 08:12-0400 Heart rate 88 /min Miles Kleinmann PA- C Work Phone: [facility] 10-06-2021 08:12-0400 Systolic blood pressure 132 mm[Hg] Miles Kleinmann PA-C Work Phone: [facility] 02-03-2021 13:37-0400 Body height 170.2 cm Miles Kleinmann PA- C Work Phone: [facility] 02-03-2021 13:37-0400 Body mass index (BMI) [Ratio] 43.85 kg/m2 Miles Kleinmann PA-C Work Phone: [facility] 02-03-2021 13:37-0400 Body weight 127.01 kg Miles Kleinmann PA- C Work Phone: [facility] 02-03-2021 13:37-0400 Diastolic blood pressure 66 mm[Hg] Miles Kleinmann PA-C Work Phone: [facility] 02-03-2021 13:37-0400 Heart rate 80 /min Miles Kleinmann PA- C Work Phone: [facility] 02-03-2021 13:37-0400 Systolic blood pressure 114 mm[Hg] Miles Kleinmann PA-C Work Phone: [facility] 11-11-2020 14:03-0400 Body height 170.2 cm Miles Kleinmann PA- C Work Phone: [facility] 11-11-2020 14:03-0400 Body mass index (BMI) [Ratio] 43.96 kg/m2 Miles Kleinmann PA-C Work Phone: [facility] 11-11-2020 14:03-0400 Body weight 127.33 kg Milse Kleinmann PA- C Work Phone: [facility] 11-11-2020 14:03-0400 Diastolic blood pressure 83 mm[Hg] Miles Kleinmann PA-C Work Phone: [facility] 11-11-2020 14:03-0400 Heart rate 90 /min Miles Kleinmann PA- C Work Phone: [facility] 11-11-2020 14:03-0400 Systolic blood pressure 117 mm[Hg] Miles Kleinmann PA-C Work Phone: [facility] 08-18-2020 14:05-0400 BMI (Body Mass Index) 44.17 kg/m2 Mary Ellen Umaña [facility] 08-18-2020 14:05-0400 Body weight 127.91 kg Mary Ellen Umaña [facility] 08-18-2020 14:05-0400 BP Diastolic 77 mm[Hg] Mary Ellen Umaña [facility] 08-18-2020 14:05-0400 BP Systolic 119 mm[Hg] Mary Ellen Umaña [facility] 08-18-2020 14:05-0400 Height 170.2 cm Mary Ellen Umaña [facility] 08-18-2020 14:05-0400 Pulse (Heart Rate) 81 /min Mary Ellen Umaña [facility] 07-08-2020 10:16-0500 Body weight 127.46 kg Mary Ellen Umaña [facility] 07-08-2020 10:16-0500 BP Diastolic 85 mm[Hg] Mary Ellen Umaña [facility] 07-08-2020 10:16-0500 BP Systolic 135 mm[Hg] Mary Ellen Umaña [facility] 07-08-2020 10:16-0500 Pulse (Heart Rate) 91 /min Mary Ellen Umaña [facility] Encounters Encounter Date Encounter Type Care Provider Facility Start: 03-04-2023 End: 03-04-2023 ambulatory JASMYN SIMENTAL [facility] Start: 03-04-2023 End: 03-04-2023 Office outpatient visit 15 minutes Jasmyn Simental CNP Work Phone: [facility] Plan of Treatment Date Care Activity Detail Author Start: 02-11-2033 Tetanus vaccination Tetanus: Every 10yrs [facility] Start: 04-30-2029 Tetanus vaccination Tetanus: Every 10yrs [facility] Start: 07-23-2023 End: 07-23-2023 Patient encounter procedure 07/23/2023 1:45 PM EDT Office Visit [facility] [address] [place] [address] [place] [address] Kimber Murray, JACOB [address] [place] [id number] [facility] Start: 06-10-2023 End: 03-04-2024 Thyrotropin [Units/volume] in Serum or Plasma TSH Lab Routine Liliya's thyroiditis Hypothyroidism during in third trimester Expected: 06/10/2023, Expires: 03/04/2024 [facility] Payers Date Payer Category Payer Medicaid [id number] 2020 Medicaid [id number] 2020 Medicaid [id number] 2020 Private Health Insurance 103 [id number] 2020 Unknown [id number] 2020 Unknown [id number] [facility] U[employer] CE PLUS [id number] 2020-Present [phone] [address] [address] [place] [address] [id number] 1991 Unknown [id number] 03 1991 Unknown [id number] 79 1991 Unknown [id number] 79 1991 Unknown [id number] [id number] 19 1991 Unknown [id number] [id number] 19 1991 Unknown [id number] [id number] 19 1991 Unknown [id number] [id number] 19 1991 Unknown [id number] [id number] 19 1991 Unknown [id number] [id number] 19 1991 Unknown [id number] [id number] 03 1991 Unknown [id number] [id number] 03 1991 Unknown [id number] [id number] 03 1991 Unknown [id number] [id number] 03 1991 Unknown [id number] 03 1991 Unknown [id number] 03 Social History Date Type Detail Facility Start: 07-10-2020 End: 06-19-2022 Tobacco smoking status NHIS Never smoker [facility] Start: 07-10-2020 End: 06-19-2022 Tobacco use and exposure Never used [facility] Start: 07-10-2020 End: 03-04-2023 Alcohol intake Current drinker of alcohol (finding) [facility] Start: 07-08-2020 Alcohol Comment rarely [facility] Start: 1990 [facility]igned [facility] Start: 09-26-2021 End: 06-18-2022 Exposure to SARS-CoV-2 (event) Not sure [facility] Start: 11-11-2020 End: 11-20-2022 Alcohol intake [facility] Start: 06-19-2022 End: 11-20-2022 Tobacco use panel [facility] Start: 08-13-2022 [facility] Clinical Notes 11-11-2020 to 03-04-2023 Patient InstructionsJasmyn Simental CNP - 03/04/2023 1:26 PM Kimber Trinidad CNP - 11/20/2022 2:43 PM Indira Murray CNP - 06/19/2022 7:56 AM ESTPatient Instructions Note Date & Type Note Facility 03-04-2023 Instructions Jasmyn Simental CNP - 03/04/2023 1:41 PM EDT Get updated labs done prior to delivery Get updated labs done prior to follow up following delivery about 6 weeks following with in person follow up Continue Levothyroxine 50 mcg oral daily documented in this encounter [facility] 03-04-2023 History of Presen t illness Narrative Images from the original note were not included. Patient ID: Raul Ziegler is a 32 y.o. 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 She has a previous history of graves disease, now in remission. Estimated Date of Delivery: 05/06/23 [id number] She was evaluated by her primary care physician on July 04, 2020 with generalized complaints of not feeling well following Covid infection. She delivered female infant [birth year], 2019. She reports that she has a history of having had hypothyroidism 5 years ago, briefly treated with low-dose levothyroxine. TFTs were checked on 07/06/2020 and revealed free T4 3.08, and TSH less than 0.02. Her TSI as positive and diagnosed with Graves disease. She was on Methimazole about 1 year, and eventually went into remission She then developed hypothyroidism and + TPO antibodies. She was started on Levothyroxine November 2022. She is currently 31 weeks . She denies any complaints today reports has been feeling well. Updated TFTs reviewed below she is currently euthyroid on her current dose of levothyroxine 50 mcg oral daily Review of Systems: Review of Systems Constitutional: Positive for fatigue. Negative for appetite change and unexpected weight change. HENT: Negative for trouble swallowing and voice change. Eyes: Negative for pain, redness and visual disturbance. Respiratory: Negative for shortness of breath. Cardiovascular: Negative for chest pain and palpitations. Gastrointestinal: Negative for constipation and diarrhea. Endocrine: Negative for cold intolerance and heat intolerance. Musculoskeletal: Negative for neck pain. Skin: +Hair loss, + Dry skin Neurological: Negative for tremors. The following portions of the patient's history were reviewed and updated as appropriate: allergies, current medications, past family history, past medical history, past social history, past surgical history and problem list. No Known Allergies Current Outpatient Medications Medication Sig Dispense Refill buPROPion (WELLBUTRIN XL) 150 MG 24 hr tablet diphenhydrAMINE (BENADRYL) 25 mg capsule Take 1 (one) capsule (25 mg total) by mouth every 6 (six) hours as needed for itching . ferrous gluconate 236 mg (27 mg iron) Tab Take 324 mg by mouth daily with breakfast . levothyroxine (SYNTHROID, LEVOTHROID) 50 MCG tablet Take 1 (one) tablet (50 mcg total) by mouth daily . 30 tablet 11 omeprazole (PRILOSEC) 20 MG capsule Take 1 (one) capsule (20 mg total) by mouth 2 (two) times a day . polycarbophil (FIBERCON) 625 mg tablet Take 1 (one) tablet (625 mg total) by mouth daily . vitamin with Ca-Iron-FA 27-1 mg Tab Take 1 (one) tablet by mouth daily . traZODone (DESYREL) 50 MG tablet Take 2 (two) tablets (100 mg total) by mouth nightly as needed . ALPRAZolam (XANAX) 1 MG tablet Take 1 (one) tablet (1 mg total) by mouth nightly as needed for sleep .0.5mg PRN . pyridoxine, vitamin B6, (B-6) 25 MG tablet Take 1 (one) tablet (25 mg total) by mouth daily . No current facility-administered medications for this visit. Objective: BP 113/75 (BP Location: Left arm) Pulse 83 Wt (!) 141 kg (310 lb 14.4 oz) BMI 48.69 kg/m Wt Readings from Last 3 Encounters: 03/04/23 (!) 141 kg (310 lb 14.4 oz) 11/20/22 (!) 136.4 kg (300 lb 9.6 oz) 06/19/22 131.2 kg (289 lb 4.8 oz) Physical Exam: Physical Exam Constitutional: Appearance: She is well-developed. HENT: Head: Normocephalic and atraumatic. Eyes: Conjunctiva/sclera: Conjunctivae normal. Pupils: Pupils are equal, round, and reactive to light. Neck: Thyroid: Thyromegaly (mild thyromegaly) present. Cardiovascular: Rate and Rhythm: Normal rate and regular rhythm. Heart sounds: Normal heart sounds. Pulmonary: Effort: Pulmonary effort is normal. No respiratory distress. Breath sounds: Normal breath sounds. No wheezing or rales. Lymphadenopathy: Cervical: No cervical adenopathy. Skin: General: Skin is warm and dry. Findings: No erythema. Neurological: Mental Status: She is alert and oriented to person, place, and time. Cranial Nerves: No cranial nerve deficit. Psychiatric: Behavior: Behavior normal. Thought Content: Thought content normal. Judgment: Judgment normal. Lab review: 02/18/2023 TSH 1.200 FT4 0.90 Free T3 1.8 (2.18-3.98 normal range) TPO 107 11/13/22: TSH: 3.590; Free T4: 0.87 06/09/22 TSH: 2.930; Free T4: 0.89 TPO: 190 01/11/2022 TSH 4.130, FT4: 0.93 11/16/2021 TSH 4.510, FT4: 1.03 TSI: 0.29 09/05/2021 TSH 4.97, free T4: 0.80 06/12/2021 TSH 6.24, free T4: 0.91 TSI: 0.55 01/31/2021 TSH 3.08, free T4: 0.69 WBC 7.12 01/10/2021 TSH 2.10, free T4: 0.80 11/10/2020 TSH <0.005, free T4: 1.05; WBC 10.48 TSI pending 09/28/2020 TSH <0.005, free T4--1.40 08/15/2020 TSH <0.005, FT4--1.19 07/08/2020 TSH<0.01, FT4--2.1, TSI 6.3, TPO 475.9 07/06/2020 TSH<0.02, FT4--3.08 Sodium 143, potassium 4.0, chloride 105, CO2 26, creatinine 0.5, estimated GFR 145.6, AST 28, ALT 29, WBC 5.6, hemoglobin 13.1, hematocrit 41.7, platelet count 357,000 Radiology review: 07/22/2020 Thyroid ultrasound Thyromegaly, moderate heterogeneity, normal vascularity, no discrete nodules. 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 She was started on levothyroxine 50 mcg oral daily in November 2022. Most recent set of TFTs reveal euthyroid on that dose. She was previously taking methimazole as she had a history of Graves' disease, that is since been in remission, with 2 TSI's negative. She was without needing methimazole for about 1 year prior to requiring levothyroxine for the development of hypothyroidism. She is currently 31 weeks , Estimated Date of Delivery: 05/06/23 We will plan to repeat TFTs prior to delivery which is the first of the year, and again prior to follow-up in our office which will be sometime 6 to 8 weeks following delivery. Problem List Items Addressed This Visit Endocrine Liliya's thyroiditis - Primary Relevant Orders T4, Free TSH Other Visit Diagnoses Hypothyroidism during in third trimester Relevant Orders T4, Free TSH Plan: 1. levothyroxine 50 mcg daily 2. Recheck TFTs in 3 months before follow up Orders Placed This Encounter Procedures T4, Free TSH T4, Free TSH Electronically signed by Jasmyn BOWEN 231:28 PM documented in this encounter [facility] 11-20-2022 History of Presen t illness Narrative Images from the original note were not included. Patient ID: Raul Ziegler is a 32 y.o. female Subjective: Patient is a 32 year old female referred for evaluation of hyperthyroidism. She was evaluated by her primary care physician on July 04, 2020 with generalized complaints of not feeling well following Covid infection. She delivered female infant [birth year], 2019. She reports that she has a history of having had hypothyroidism 5 years ago, briefly treated with low-dose levothyroxine. Thyroid function has been routinely monitored by her primary care physician. TFTs were checked on 07/06/2020 and revealed free T4 3.08, and TSH less than 0.02. She had multiple symptoms of hyperthyroidism and she had been bothered by palpitations. Interval HPI Patient was last seen in 06/28. TFTs have continued to trend towards hypothyroidism, and she has been off methimazole now for 12 months. TSI negative x 2. She does have + TPO antibodies. Reports more palpitations including notifications from her watch indicating her HR is as high as 130. Review of Systems: Review of Systems Constitutional: Positive for fatigue. Negative for appetite change and unexpected weight change. HENT: Negative for trouble swallowing and voice change. Eyes: Positive for visual disturbance (trouble focusing, eyes tired). Negative for pain and redness. Respiratory: Negative for shortness of breath. Cardiovascular: Negative for chest pain and palpitations. Gastrointestinal: Positive for constipation. Negative for diarrhea. Endocrine: Positive for cold intolerance. Negative for heat intolerance. Musculoskeletal: Negative for neck pain. Skin: +Hair loss, + Dry skin Neurological: Positive for tremors (with palpitations). The following portions of the patient's history were reviewed and updated as appropriate: allergies, current medications, past family history, past medical history, past social history, past surgical history and problem list. No Known Allergies Current Outpatient Medications Medication Sig Dispense Refill buPROPion (WELLBUTRIN XL) 150 MG 24 hr tablet diphenhydrAMINE (BENADRYL) 25 mg capsule Take 1 (one) capsule (25 mg total) by mouth every 6 (six) hours as needed for itching . omeprazole (PRILOSEC) 20 MG capsule Take 1 (one) capsule (20 mg total) by mouth 2 (two) times a day . polycarbophil (FIBERCON) 625 mg tablet Take 1 (one) tablet (625 mg total) by mouth daily . vitamin with Ca-Iron-FA 27-1 mg Tab Take 1 (one) tablet by mouth daily . pyridoxine, vitamin B6, (B-6) 25 MG tablet Take 1 (one) tablet (25 mg total) by mouth daily . traZODone (DESYREL) 50 MG tablet Take 2 (two) tablets (100 mg total) by mouth nightly as needed . ALPRAZolam (XANAX) 1 MG tablet Take 1 (one) tablet (1 mg total) by mouth nightly as needed for sleep .0.5mg PRN . No current facility-administered medications for this visit. Past Medical History: Diagnosis Date Ankle sprain 11/25/2015 Boil, leg 10/11/2009 Disease of thyroid gland Hidradenitis 10/05/2013 Perforated ear drum 02/17/2010 08/28/2022 History reviewed. No pertinent surgical history. History reviewed. No pertinent family history. Objective: BP 101/67 (BP Location: Right arm) Pulse 76 Wt (!) 136.4 kg (300 lb 9.6 oz) BMI 47.08 kg/m Wt Readings from Last 3 Encounters: 11/20/22 (!) 136.4 kg (300 lb 9.6 oz) 06/19/22 131.2 kg (289 lb 4.8 oz) 01/15/22 130.2 kg (287 lb) Physical Exam: Physical Exam Constitutional: Appearance: She is well-developed. HENT: Head: Normocephalic and atraumatic. Eyes: Conjunctiva/sclera: Conjunctivae normal. Pupils: Pupils are equal, round, and reactive to light. Neck: Thyroid: Thyromegaly (mild thyromegaly) present. Cardiovascular: Rate and Rhythm: Normal rate and regular rhythm. Heart sounds: Normal heart sounds. Pulmonary: Effort: Pulmonary effort is normal. No respiratory distress. Breath sounds: Normal breath sounds. No wheezing or rales. Lymphadenopathy: Cervical: No cervical adenopathy. Skin: General: Skin is warm and dry. Findings: No erythema. Neurological: Mental Status: She is alert and oriented to person, place, and time. Cranial Nerves: No cranial nerve deficit. Psychiatric: Behavior: Behavior normal. Thought Content: Thought content normal. Judgment: Judgment normal. Lab review: 11/13/22: TSH: 3.590; Free T4: 0.87 06/09/22 TSH: 2.930; Free T4: 0.89 TPO: 190 01/11/2022 TSH 4.130, FT4: 0.93 11/16/2021 TSH 4.510, FT4: 1.03 TSI: 0.29 09/05/2021 TSH 4.97, free T4: 0.80 06/12/2021 TSH 6.24, free T4: 0.91 TSI: 0.55 01/31/2021 TSH 3.08, free T4: 0.69 WBC 7.12 01/10/2021 TSH 2.10, free T4: 0.80 11/10/2020 TSH <0.005, free T4: 1.05; WBC 10.48 TSI pending 09/28/2020 TSH <0.005, free T4--1.40 08/15/2020 TSH <0.005, FT4--1.19 07/08/2020 TSH<0.01, FT4--2.1, TSI 6.3, TPO 475.9 07/06/2020 TSH<0.02, FT4--3.08 Sodium 143, potassium 4.0, chloride 105, CO2 26, creatinine 0.5, estimated GFR 145.6, AST 28, ALT 29, WBC 5.6, hemoglobin 13.1, hematocrit 41.7, platelet count 357,000 Radiology review: 07/22/2020 Thyroid ultrasound Thyromegaly, moderate heterogeneity, normal vascularity, no discrete nodules. Assessment: Dx: Hyperthyroidism Patient is a 30-year-old female with hyperthyroidism due to Graves' disease. 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 She has remained off methimazole for >6 months with TSI negative x 2. TFTs currently reflect euthyroid state, however with current she would likely benefit from more normal TSH. . She is currently 16 weeks prgnatn. Problem List Items Addressed This Visit None Plan: 1. Start levothyroxine 50 mcg daily 2. Recheck TFTs in 4 weeks, TFTs again in 3 months before follow up Return in about 3 months (around 02/20/2023). Electronically Signed by: Kimber Murray CNP 11/20/22 12:26 PM documented in this encounter [facility] 06-19-2022 History of Presen t illness Narrative Patient ID: Raul Ziegler is a 32 y.o. female Subjective: Patient is a 32 year old female referred for evaluation of hyperthyroidism. She was evaluated by her primary care physician on July 04, 2020 with generalized complaints of not feeling well following Covid infection. She had recent with delivery of female July 26, 2019. She reports that she has a history of having had hypothyroidism 5 years ago, briefly treated with low-dose levothyroxine. Thyroid function has been routinely monitored by her primary care physician. TFTs were checked on 07/06/2020 and revealed free T4 3.08, and TSH less than 0.02. She had multiple symptoms of hyperthyroidism and she had been bothered by palpitations. Interval HPI Patient was last seen in 01/2022. TFTs have continued to trend towards hypothyroidism, and she has been off methimazole now for 3 months. TSI negative x 2. She does have + TPO antibodies. Reports more palpitations including notifications from her watch indicating her HR is as high as 130. Review of Systems: Review of Systems Constitutional: Positive for fatigue. Negative for appetite change and unexpected weight change. HENT: Negative for trouble swallowing and voice change. Eyes: Positive for visual disturbance (trouble focusing, eyes tired). Negative for pain and redness. Respiratory: Negative for shortness of breath. Cardiovascular: Positive for palpitations. Negative for chest pain. Gastrointestinal: Positive for constipation. Negative for diarrhea. Endocrine: Positive for cold intolerance. Negative for heat intolerance. Musculoskeletal: Negative for neck pain. Skin: +Hair loss, + Dry skin Neurological: Positive for tremors (with palpitations). The following portions of the patient's history were reviewed and updated as appropriate: allergies, current medications, past family history, past medical history, past social history, past surgical history and problem list. No Known Allergies Current Outpatient Medications Medication Sig Dispense Refill ALPRAZolam (XANAX) 1 MG tablet Take 1 mg by mouth nightly as needed for sleep .0.5mg PRN . buPROPion (WELLBUTRIN XL) 150 MG 24 hr tablet omeprazole (PRILOSEC) 20 MG capsule Take 20 mg by mouth 2 (two) times a day . polycarbophil (FIBERCON) 625 mg tablet Take 625 mg by mouth daily . vitamin with Ca-Iron-FA 27-1 mg Tab Take 1 tablet by mouth daily . traZODone (DESYREL) 50 MG tablet Take 100 mg by mouth nightly as needed . No current facility-administered medications for this visit. Past Medical History: Diagnosis Date Ankle sprain 11/25/2015 Boil, leg 10/11/2009 Disease of thyroid gland Hidradenitis 10/05/2013 Perforated ear drum 02/17/2010 No past surgical history on file. No family history on file. Objective: BP 123/85 Pulse 70 Wt 131.2 kg (289 lb 4.8 oz) BMI 45.31 kg/m Wt Readings from Last 3 Encounters: 06/19/22 131.2 kg (289 lb 4.8 oz) 01/15/22 130.2 kg (287 lb) 10/06/21 (!) 136.5 kg (301 lb) Physical Exam: Physical Exam Constitutional: Appearance: She is well-developed. HENT: Head: Normocephalic and atraumatic. Eyes: Conjunctiva/sclera: Conjunctivae normal. Pupils: Pupils are equal, round, and reactive to light. Neck: Thyroid: Thyromegaly (mild thyromegaly) present. Cardiovascular: Rate and Rhythm: Normal rate and regular rhythm. Heart sounds: Normal heart sounds. Pulmonary: Effort: Pulmonary effort is normal. No respiratory distress. Breath sounds: Normal breath sounds. No wheezing or rales. Lymphadenopathy: Cervical: No cervical adenopathy. Skin: General: Skin is warm and dry. Findings: No erythema. Neurological: Mental Status: She is alert and oriented to person, place, and time. Cranial Nerves: No cranial nerve deficit. Psychiatric: Behavior: Behavior normal. Thought Content: Thought content normal. Judgment: Judgment normal. Lab review: 06/09/22 TSH: 2.930; Free T4: 0.89 TPO: 190 01/11/2022 TSH 4.130, FT4: 0.93 11/16/2021 TSH 4.510, FT4: 1.03 TSI: 0.29 09/05/2021 TSH 4.97, free T4: 0.80 06/12/2021 TSH 6.24, free T4: 0.91 TSI: 0.55 01/31/2021 TSH 3.08, free T4: 0.69 WBC 7.12 01/10/2021 TSH 2.10, free T4: 0.80 11/10/2020 TSH <0.005, free T4: 1.05; WBC 10.48 TSI pending 09/28/2020 TSH <0.005, free T4--1.40 08/15/2020 TSH <0.005, FT4--1.19 07/08/2020 TSH<0.01, FT4--2.1, TSI 6.3, TPO 475.9 07/06/2020 TSH<0.02, FT4--3.08 Sodium 143, potassium 4.0, chloride 105, CO2 26, creatinine 0.5, estimated GFR 145.6, AST 28, ALT 29, WBC 5.6, hemoglobin 13.1, hematocrit 41.7, platelet count 357,000 Radiology review: 07/22/2020 Thyroid ultrasound Thyromegaly, moderate heterogeneity, normal vascularity, no discrete nodules. Assessment: Dx: Hyperthyroidism Patient is a 30-year-old female with hyperthyroidism due to Graves' disease. 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 She has remained off methimazole for >6 months with TSI negative x 2. TFTs currently reflect mild euthyroid state. She continue to be interested in trying to become if safe from a thyroid standpoint. We discussed that as she is confirmed in remission it would be safe to proceed with a potential . We did discussed the possibility that her Liliya's thyroiditis may become predominant, in which case thyroid hormone replacement may be necessary to support fertility. Her TSH has improved some since stopping Methimazole, we will continue to monitor labs to determine best course of action. Problem List Items Addressed This Visit None Plan: 1. Remain off Methimazole 2. Recheck TFTs in 6 weeks weeks, TFTs again in 3 months before follow up Discuss palpitations with PCP. Return in about 3 months (around 09/16/2022). Electronically Signed by: Kimber Murray CNP 06/21/22 12:26 PM documented in this encounter [facility] 01-16-2022 History of Presen t illness Narrative Images from the original note were not included. Patient ID: Raul Ziegler is a 31 y.o. female Subjective: Patient is a 30 year old female referred for evaluation of hyperthyroidism. She was evaluated by her primary care physician on July 04, 2020 with generalized complaints of not feeling well following Covid infection. She had recent with delivery of female July 26, 2019. She reports that she has a history of having had hypothyroidism 5 years ago, briefly treated with low-dose levothyroxine. Thyroid function has been routinely monitored by her primary care physician. TFTs were checked on 07/06/2020 and revealed free T4 3.08, and TSH less than 0.02. She had multiple symptoms of hyperthyroidism and she had been bothered by palpitations. Interval HPI Patient was last seen in 10/2021. TFTs have continued to trend towards hypothyroidism, and she has been off methimazole now for 3 months. TSI negative x 2. She does have + TPO antibodies. She again expresses interest in having another child if stable from a thyroid standpoint. Review of Systems: Review of Systems Constitutional: Positive for fatigue. Negative for appetite change and unexpected weight change. HENT: Negative for trouble swallowing and voice change. Eyes: Positive for visual disturbance (trouble focusing, eyes tired). Negative for pain and redness. Respiratory: Negative for shortness of breath. Cardiovascular: Negative for chest pain and palpitations. Gastrointestinal: Negative for constipation and diarrhea. Endocrine: Negative for cold intolerance and heat intolerance. Musculoskeletal: Negative for neck pain. Neurological: Negative for tremors. The following portions of the patient's history were reviewed and updated as appropriate: allergies, current medications, past family history, past medical history, past social history, past surgical history and problem list. No Known Allergies Current Outpatient Medications Medication Sig Dispense Refill ALPRAZolam (XANAX) 1 MG tablet Take 1 mg by mouth nightly as needed for sleep .0.5mg PRN . buPROPion (WELLBUTRIN XL) 150 MG 24 hr tablet omeprazole (PRILOSEC) 20 MG capsule Take 20 mg by mouth 2 (two) times a day . polycarbophil (FIBERCON) 625 mg tablet Take 625 mg by mouth daily . vitamin with Ca-Iron-FA 27-1 mg Tab Take 1 tablet by mouth daily . traZODone (DESYREL) 50 MG tablet Take 100 mg by mouth nightly as needed . methIMAzole (TAPAZOLE) 5 MG tablet Take 2 tablets (10mg) every MWF, Take 1 tablet (5mg) every TuThSatSun. . (Patient not taking: Reported on 01/15/2022 .) 50 tablet 6 No current facility-administered medications for this visit. Past Medical History: Diagnosis Date Ankle sprain 11/25/2015 Boil, leg 10/11/2009 Disease of thyroid gland Hidradenitis 10/05/2013 Perforated ear drum 02/17/2010 History reviewed. No pertinent surgical history. History reviewed. No pertinent family history. Objective: BP 113/74 Pulse 90 Ht 5' 7 Wt 130.2 kg (287 lb) BMI 44.95 kg/m Wt Readings from Last 3 Encounters: 01/15/22 130.2 kg (287 lb) 10/06/21 (!) 136.5 kg (301 lb) 02/03/21 127 kg (280 lb) Physical Exam: Physical Exam Constitutional: Appearance: She is well-developed. HENT: Head: Normocephalic and atraumatic. Eyes: Conjunctiva/sclera: Conjunctivae normal. Pupils: Pupils are equal, round, and reactive to light. Neck: Thyroid: Thyromegaly (mild thyromegaly) present. Cardiovascular: Rate and Rhythm: Normal rate and regular rhythm. Heart sounds: Normal heart sounds. Pulmonary: Effort: Pulmonary effort is normal. No respiratory distress. Breath sounds: Normal breath sounds. No wheezing or rales. Lymphadenopathy: Cervical: No cervical adenopathy. Skin: General: Skin is warm and dry. Findings: No erythema. Neurological: Mental Status: She is alert and oriented to person, place, and time. Cranial Nerves: No cranial nerve deficit. Psychiatric: Behavior: Behavior normal. Thought Content: Thought content normal. Judgment: Judgment normal. Lab review: 01/11/2022 TSH 4.130, FT4: 0.93 11/16/2021 TSH 4.510, FT4: 1.03 TSI: 0.29 09/05/2021 TSH 4.97, free T4: 0.80 06/12/2021 TSH 6.24, free T4: 0.91 TSI: 0.55 01/31/2021 TSH 3.08, free T4: 0.69 WBC 7.12 01/10/2021 TSH 2.10, free T4: 0.80 11/10/2020 TSH <0.005, free T4: 1.05; WBC 10.48 TSI pending 09/28/2020 TSH <0.005, free T4--1.40 08/15/2020 TSH <0.005, FT4--1.19 07/08/2020 TSH<0.01, FT4--2.1, TSI 6.3, TPO 475.9 07/06/2020 TSH<0.02, FT4--3.08 Sodium 143, potassium 4.0, chloride 105, CO2 26, creatinine 0.5, estimated GFR 145.6, AST 28, ALT 29, WBC 5.6, hemoglobin 13.1, hematocrit 41.7, platelet count 357,000 Radiology review: 07/22/2020 Thyroid ultrasound Thyromegaly, moderate heterogeneity, normal vascularity, no discrete nodules. Assessment: Dx: Hyperthyroidism Patient is a 30-year-old female with hyperthyroidism due to Graves' disease. 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 She has remained off methimazole for 3 months with TSI negative x 2. TFTs currently reflect mild subclinical hypothyroidism, slightly improved since stopping methimazole. She continue to be interested in trying to become if safe from a thyroid standpoint. We discussed that as she is confirmed in remission it would be safe to proceed with a potential . We did discussed the possibility that her Liliya's thyroiditis may become predominant, in which case thyroid hormone replacement may be necessary to support fertility. Her TSH has improved some since stopping Methimazole, we will continue to monitor labs to determine best course of action. Problem List Items Addressed This Visit Endocrine Graves disease Relevant Orders T4, Free TSH Liliya's thyroiditis - Primary Relevant Orders T4, Free TSH Thyroid peroxidase antibody (TPO) TSH T4, Free Plan: 1. Remain off Methimazole 2. Recheck TFTs in 6 weeks weeks, TFTs again in 3 months before follow up Return in about 3 months (around 04/16/2022). Electronically signed by: Miles Lubin PA-C, [facility] 01/16/22 11:46 AM documented in this encounter [facility] 10-06-2021 History of Presen t illness Narrative Images from the original note were not included. Patient ID: Raul Ziegler is a 31 y.o. female Subjective: Patient is a 30 year old female referred for evaluation of hyperthyroidism. She was evaluated by her primary care physician on July 04, 2020 with generalized complaints of not feeling well following Covid infection. She had recent with delivery of female infant July 26, 2019. She reports that she has a history of having had hypothyroidism 5 years ago, briefly treated with low-dose levothyroxine. Thyroid function has been routinely monitored by her primary care physician. TFTs were checked on 07/06/2020 and revealed free T4 3.08, and TSH less than 0.02. She had multiple symptoms of hyperthyroidism and she had been bothered by palpitations. Interval HPI Patient was last seen in 02/2021. TFTs have continued to trend towards hypothyroidism with decreasing doses of methimazole. Last TSI drawn in June was negative. Current TFTs show subclinical hypothyroidism on methimazole 2.5 mg daily. Patient reports symptoms of hypothyroidism including fatigue and 20 pound weight gain over the last 6 months. She again expresses interest in having another child if stable from a thyroid standpoint. Review of Systems: Review of Systems Constitutional: Positive for fatigue. Negative for appetite change and unexpected weight change. HENT: Negative for trouble swallowing and voice change. Eyes: Positive for visual disturbance (trouble focusing, eyes tired). Negative for pain and redness. Respiratory: Negative for shortness of breath. Cardiovascular: Negative for chest pain and palpitations. Gastrointestinal: Negative for constipation and diarrhea. Endocrine: Negative for cold intolerance and heat intolerance. Musculoskeletal: Negative for neck pain. Neurological: Negative for tremors. The following portions of the patient's history were reviewed and updated as appropriate: allergies, current medications, past family history, past medical history, past social history, past surgical history and problem list. No Known Allergies Current Outpatient Medications Medication Sig Dispense Refill ALPRAZolam (XANAX) 1 MG tablet Take 1 mg by mouth nightly as needed for sleep .0.5mg PRN . busPIRone (BUSPAR) 10 MG tablet Take 10 mg by mouth 3 (three) times a day . esomeprazole (NEXIUM) 20 MG capsule Take 40 mg by mouth every morning before breakfast . methIMAzole (TAPAZOLE) 5 MG tablet Take 2 tablets (10mg) every MWF, Take 1 tablet (5mg) every TuThSatSun. . 50 tablet 6 omeprazole (PRILOSEC) 20 MG capsule Take 20 mg by mouth 2 (two) times a day . polycarbophil (FIBERCON) 625 mg tablet Take 625 mg by mouth daily . vitamin with Ca-Iron-FA 27-1 mg Tab Take 1 tablet by mouth daily . traZODone (DESYREL) 50 MG tablet Take 100 mg by mouth nightly as needed . propranoloL (INDERAL) 10 MG tablet Take 1 tablet every 8 hours PRN palpitations. . (Patient not taking: Reported on 10/06/2021 .) 30 tablet 6 No current facility-administered medications for this visit. Past Medical History: Diagnosis Date Ankle sprain 11/25/2015 Boil, leg 10/11/2009 Disease of thyroid gland Hidradenitis 10/05/2013 Perforated ear drum 02/17/2010 History reviewed. No pertinent surgical history. History reviewed. No pertinent family history. Objective: BP 132/80 Pulse 88 Ht 5' 7 Wt (!) 136.5 kg (301 lb) BMI 47.14 kg/m Wt Readings from Last 3 Encounters: 10/06/21 (!) 136.5 kg (301 lb) 02/03/21 127 kg (280 lb) 11/11/20 127.3 kg (280 lb 11.2 oz) Physical Exam: Physical Exam Constitutional: Appearance: She is well-developed. HENT: Head: Normocephalic and atraumatic. Eyes: Conjunctiva/sclera: Conjunctivae normal. Pupils: Pupils are equal, round, and reactive to light. Neck: Thyroid: Thyromegaly (mild thyromegaly) present. Cardiovascular: Rate and Rhythm: Normal rate and regular rhythm. Heart sounds: Normal heart sounds. Pulmonary: Effort: Pulmonary effort is normal. No respiratory distress. Breath sounds: Normal breath sounds. No wheezing or rales. Lymphadenopathy: Cervical: No cervical adenopathy. Skin: General: Skin is warm and dry. Findings: No erythema. Neurological: Mental Status: She is alert and oriented to person, place, and time. Cranial Nerves: No cranial nerve deficit. Psychiatric: Behavior: Behavior normal. Thought Content: Thought content normal. Judgment: Judgment normal. Lab review: 09/05/2021 TSH 4.97, free T4: 0.80 06/12/2021 TSH 6.24, free T4: 0.91 TSI: 0.55 01/31/2021 TSH 3.08, free T4: 0.69 WBC 7.12 01/10/2021 TSH 2.10, free T4: 0.80 11/10/2020 TSH <0.005, free T4: 1.05; WBC 10.48 TSI pending 09/28/2020 TSH <0.005, free T4--1.40 08/15/2020 TSH <0.005, FT4--1.19 07/08/2020 TSH<0.01, FT4--2.1, TSI 6.3, TPO 475.9 07/06/2020 TSH<0.02, FT4--3.08 Sodium 143, potassium 4.0, chloride 105, CO2 26, creatinine 0.5, estimated GFR 145.6, AST 28, ALT 29, WBC 5.6, hemoglobin 13.1, hematocrit 41.7, platelet count 357,000 Radiology review: 07/22/2020 Thyroid ultrasound Thyromegaly, moderate heterogeneity, normal vascularity, no discrete nodules. Assessment: Dx: Hyperthyroidism Patient is a 30-year-old female with hyperthyroidism due to Graves' disease. 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 Her TFTs have improved significantly since starting methimazole on 07/08/2020. Her symptoms have improved, and she has had a marked decrease in her palpitations. She is currently on methimazole 10 mg Saturday/Saturday/Saturday, 5 mg all other days. We discussed long-term treatment options including methimazole versus I-131 therapy versus surgery. Discussed that long-term treatment plan should be considered, since she and her are planning a during the next year if possible. The possibility of I-131 treatment was discussed; if effective she would need lifelong levothyroxine therapy; she is not sure she wants to be committed to lifelong medication. However this would be the safest for in the future. Most recent TFTs may suggest that she is going into remission for Graves' disease. We will stop her methimazole today and watch her TFTs closely and recheck TSI. If safely in remission, she may be in a stable position to conceive without concern for her thyroid function. Problem List Items Addressed This Visit Endocrine Graves disease - Primary Relevant Orders T4, Free TSH Thyroid Stimulating Immunoglobulin TSH T4, Free Plan: 1. Stop Methimazole 2. Recheck TFTs, TSI in 4 weeks weeks, TFTs again in 3 months before follow up Return in about 3 months (around 01/06/2022). Electronically signed by: [facility]ubin [facility]-C, [facility] 10/06/21 10:02 AM documented in this encounter [facility] 02-07-2021 History of Presen t illness Narrative Images from the original note were not included. Patient ID: Raul Ziegler is a 30 y.o. female Subjective: Patient is a 30 year old female referred for evaluation of hyperthyroidism. She was evaluated by her primary care physician on July 04, 2020 with generalized complaints of not feeling well following Covid infection. She had recent with delivery of female infant July 26, 2019. She reports that she has a history of having had hypothyroidism 5 years ago, briefly treated with low-dose levothyroxine. Thyroid function has been routinely monitored by her primary care physician. TFTs were checked on 07/06/2020 and revealed free T4 3.08, and TSH less than 0.02. She had multiple symptoms of hyperthyroidism and she had been bothered by palpitations. She continues on methimazole 10mg MWF, 5 mg TThSatSun. Her previous labs showed a persistent suppressed TSH, but most recent TFTs show her TSH is now rebounding at 3.08 with a free T4 of 0.69. We have discussed with the patient that if she plans on becoming in the future, radioactive iodine as a permanent treatment for Graves' disease is preferred versus utilizing PTU/methimazole during . She states her and her have decided not if she is not entered remission by the end of this year they will move forward with radioactive iodine. Patient may be going into remission currently, will need to monitor TFTs serially and recheck TSI Review of Systems: Review of Systems Constitutional: Positive for fatigue. Negative for appetite change and unexpected weight change. HENT: Negative for trouble swallowing and voice change. Eyes: Positive for visual disturbance (trouble focusing, eyes tired). Negative for pain and redness. Respiratory: Negative for shortness of breath. Cardiovascular: Negative for chest pain and palpitations. Gastrointestinal: Negative for constipation and diarrhea. Endocrine: Negative for cold intolerance and heat intolerance. Musculoskeletal: Negative for neck pain. Neurological: Negative for tremors. The following portions of the patient's history were reviewed and updated as appropriate: allergies, current medications, past family history, past medical history, past social history, past surgical history and problem list. No Known Allergies Current Outpatient Medications Medication Sig Dispense Refill ALPRAZolam (XANAX) 1 MG tablet Take 1 mg by mouth nightly as needed for sleep .0.5mg PRN . busPIRone (BUSPAR) 10 MG tablet Take 10 mg by mouth 3 (three) times a day . methIMAzole (TAPAZOLE) 5 MG tablet Take 2 tablets (10mg) every MWF, Take 1 tablet (5mg) every TuThSatSun. . 50 tablet 6 omeprazole (PRILOSEC) 20 MG capsule Take 20 mg by mouth 2 (two) times a day . polycarbophil (FIBERCON) 625 mg tablet Take 625 mg by mouth daily . vitamin with Ca-Iron-FA 27-1 mg Tab Take 1 tablet by mouth daily . propranoloL (INDERAL) 10 MG tablet Take 1 tablet every 8 hours PRN palpitations. . 30 tablet 6 traZODone (DESYREL) 50 MG tablet Take 100 mg by mouth nightly as needed . esomeprazole (NEXIUM) 20 MG capsule Take 40 mg by mouth every morning before breakfast . No current facility-administered medications for this visit. Past Medical History: Diagnosis Date Ankle sprain 11/25/2015 Boil, leg 10/11/2009 Disease of thyroid gland Hidradenitis 10/05/2013 Perforated ear drum 02/17/2010 History reviewed. No pertinent surgical history. History reviewed. No pertinent family history. Objective: BP 114/66 Pulse 80 Ht 5' 7 Wt 127 kg (280 lb) BMI 43.85 kg/m Wt Readings from Last 3 Encounters: 02/03/21 127 kg (280 lb) 11/11/20 127.3 kg (280 lb 11.2 oz) 09/30/20 127.1 kg (280 lb 4.8 oz) Physical Exam: Physical Exam Constitutional: Appearance: She is well-developed. HENT: Head: Normocephalic and atraumatic. Eyes: Conjunctiva/sclera: Conjunctivae normal. Pupils: Pupils are equal, round, and reactive to light. Neck: Thyroid: Thyromegaly (mild thyromegaly) present. Cardiovascular: Rate and Rhythm: Normal rate and regular rhythm. Heart sounds: Normal heart sounds. Pulmonary: Effort: Pulmonary effort is normal. No respiratory distress. Breath sounds: Normal breath sounds. No wheezing or rales. Lymphadenopathy: Cervical: No cervical adenopathy. Skin: General: Skin is warm and dry. Findings: No erythema. Neurological: Mental Status: She is alert and oriented to person, place, and time. Cranial Nerves: No cranial nerve deficit. Psychiatric: Behavior: Behavior normal. Thought Content: Thought content normal. Judgment: Judgment normal. Lab review: 01/31/2021 TSH 3.08, free T4: 0.69 WBC 7.12 01/10/2021 TSH 2.10, free T4: 0.80 11/10/2020 TSH <0.005, free T4: 1.05; WBC 10.48 TSI pending 09/28/2020 TSH <0.005, free T4--1.40 08/15/2020 TSH <0.005, FT4--1.19 07/08/2020 TSH<0.01, FT4--2.1, TSI 6.3, TPO 475.9 07/06/2020 TSH<0.02, FT4--3.08 Sodium 143, potassium 4.0, chloride 105, CO2 26, creatinine 0.5, estimated GFR 145.6, AST 28, ALT 29, WBC 5.6, hemoglobin 13.1, hematocrit 41.7, platelet count 357,000 Radiology review: 07/22/2020 Thyroid ultrasound Thyromegaly, moderate heterogeneity, normal vascularity, no discrete nodules. Assessment: Dx: Hyperthyroidism Patient is a 30-year-old female with hyperthyroidism due to Graves' disease. 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 Her TFTs have improved significantly since starting methimazole on 07/08/2020. Her symptoms have improved, and she has had a marked decrease in her palpitations. She is currently on methimazole 10 mg Saturday/Saturday/Saturday, 5 mg all other days. We discussed long-term treatment options including methimazole versus I-131 therapy versus surgery. Discussed that long-term treatment plan should be considered, since she and her are planning a during the next year if possible. The possibility of I-131 treatment was discussed; if effective she would need lifelong levothyroxine therapy; she is not sure she wants to be committed to lifelong medication. However this would be the safest for in the future. Most recent TFTs may suggest that she is potentially going into remission for Graves' disease. We will decrease her methimazole today and watch her TFTs closely and recheck TSI. Problem List Items Addressed This Visit Endocrine Graves disease - Primary Relevant Orders T4, Free TSH Thyroid Stimulating Immunoglobulin TSH T4, Free CBC and Differential Liliya's thyroiditis Plan: 1. Decrease methimazole: 5 mg daily 4. Continue propranolol 10 mg every 8 hours as needed palpitations. 5. Recheck TFTs, TSI and CBC in 4 weeks weeks Recheck TFTs in 2 months before follow-up Return in about 2 months (around 04/05/2021). Electronically signed by: Miles Lubin PA-C, [facility] 02/07/21 9:23 AM documented in this encounter [facility] 02-03-2021 Instructions Miles Lubin PA-C - 02/03/2021 1:56 PM EDT Reduce Methimazole to 5mg daily documented in this encounter [facility] 11-11-2020 History of Presen t illness Narrative Images from the original note were not included. Patient ID: Raul Ziegler is a 30 y.o. female Subjective: Patient is a 30 year old female referred for evaluation of hyperthyroidism. She was evaluated by her primary care physician on July 04, 2020 with generalized complaints of not feeling well following Covid infection. She had recent with delivery of female infant July 26, 2019. She reports that she has a history of having had hypothyroidism 5 years ago, briefly treated with low-dose levothyroxine. Thyroid function has been routinely monitored by her primary care physician. TFTs were checked on 07/06/2020 and revealed free T4 3.08, and TSH less than 0.02. She had multiple symptoms of hyperthyroidism and she had been bothered by palpitations. At her last appointment her methimazole was increased to 10mg MWF, 5 mg TThSatSun. Recent TFTs show persistently undetectable TSH, with a free T4 of 1.0. She continues to improve in her symptomology. We have discussed with the patient that if she plans on becoming in the future, radioactive iodine as a permanent treatment for Graves' disease is preferred versus utilizing PTU/methimazole during . She states her and her have decided not if she is not entered remission by March they will move forward with radioactive iodine. Review of Systems: Review of Systems Constitutional: Positive for fatigue. Negative for appetite change and unexpected weight change. HENT: Negative for trouble swallowing and voice change. Eyes: Positive for visual disturbance (trouble focusing, eyes tired). Negative for pain and redness. Respiratory: Negative for shortness of breath. Cardiovascular: Negative for chest pain and palpitations. Gastrointestinal: Negative for constipation and diarrhea. Endocrine: Negative for cold intolerance and heat intolerance. Musculoskeletal: Negative for neck pain. Neurological: Negative for tremors. The following portions of the patient's history were reviewed and updated as appropriate: allergies, current medications, past family history, past medical history, past social history, past surgical history and problem list. No Known Allergies Current Outpatient Medications Medication Sig Dispense Refill ALPRAZolam (XANAX) 1 MG tablet Take 1 mg by mouth nightly as needed for sleep .0.5mg PRN . busPIRone (BUSPAR) 10 MG tablet Take 10 mg by mouth 3 (three) times a day . esomeprazole (NEXIUM) 20 MG capsule Take 40 mg by mouth every morning before breakfast . omeprazole (PRILOSEC) 20 MG capsule Take 20 mg by mouth 2 (two) times a day . polycarbophil (FIBERCON) 625 mg tablet Take 625 mg by mouth daily . vitamin with Ca-Iron-FA 27-1 mg Tab Take 1 tablet by mouth daily . propranoloL (INDERAL) 10 MG tablet Take 1 tablet every 8 hours PRN palpitations. . 30 tablet 6 traZODone (DESYREL) 50 MG tablet Take 100 mg by mouth nightly as needed . methIMAzole (TAPAZOLE) 5 MG tablet Take 2 tablets (10mg) every MWF, Take 1 tablet (5mg) every TuThSatSun. . 50 tablet 6 No current facility-administered medications for this visit. Past Medical History: Diagnosis Date Ankle sprain 11/25/2015 Boil, leg 10/11/2009 Disease of thyroid gland Hidradenitis 10/05/2013 Perforated ear drum 02/17/2010 History reviewed. No pertinent surgical history. History reviewed. No pertinent family history. Objective: BP 117/83 Pulse 90 Ht 5' 7 Wt 127.3 kg (280 lb 11.2 oz) BMI 43.96 kg/m Wt Readings from Last 3 Encounters: 11/11/20 127.3 kg (280 lb 11.2 oz) 09/30/20 127.1 kg (280 lb 4.8 oz) 08/18/20 127.9 kg (282 lb) Physical Exam: Physical Exam Constitutional: Appearance: She is well-developed. HENT: Head: Normocephalic and atraumatic. Eyes: Conjunctiva/sclera: Conjunctivae normal. Pupils: Pupils are equal, round, and reactive to light. Neck: Thyroid: Thyromegaly (mild thyromegaly) present. Cardiovascular: Rate and Rhythm: Normal rate and regular rhythm. Heart sounds: Normal heart sounds. Pulmonary: Effort: Pulmonary effort is normal. No respiratory distress. Breath sounds: Normal breath sounds. No wheezing or rales. Lymphadenopathy: Cervical: No cervical adenopathy. Skin: General: Skin is warm and dry. Findings: No erythema. Neurological: Mental Status: She is alert and oriented to person, place, and time. Cranial Nerves: No cranial nerve deficit. Psychiatric: Behavior: Behavior normal. Thought Content: Thought content normal. Judgment: Judgment normal. Lab review: 11/10/2020 TSH <0.005, free T4: 1.05; WBC 10.48 TSI pending 09/28/2020 TSH <0.005, free T4--1.40 08/15/2020 TSH <0.005, FT4--1.19 07/08/2020 TSH<0.01, FT4--2.1, TSI 6.3, TPO 475.9 07/06/2020 TSH<0.02, FT4--3.08 Sodium 143, potassium 4.0, chloride 105, CO2 26, creatinine 0.5, estimated GFR 145.6, AST 28, ALT 29, WBC 5.6, hemoglobin 13.1, hematocrit 41.7, platelet count 357,000 Radiology review: 07/22/2020 Thyroid ultrasound Thyromegaly, moderate heterogeneity, normal vascularity, no discrete nodules. Assessment: Dx: Hyperthyroidism Patient is a 30-year-old female with hyperthyroidism due to Graves' disease. 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 Her TFTs have improved significantly since starting methimazole on 07/08/2020. Her symptoms have improved, and she has had a marked decrease in her palpitations. She is currently on methimazole 10 mg Saturday/Saturday/Saturday, 5 mg all other days. We discussed long-term treatment options including methimazole versus I-131 therapy versus surgery. Discussed that long-term treatment plan should be considered, since she and her are planning a during the next year if possible. The possibility of I-131 treatment was discussed; if effective she would need lifelong levothyroxine therapy; she is not sure she wants to be committed to lifelong medication. However this would be the safest for in the future. She states today her and her have decided that if she does not go into remission by March of this year they will consider radioactive iodine Problem List Items Addressed This Visit Endocrine Graves disease - Primary Relevant Orders TSH T4, Free T4, Free TSH CBC and Differential Plan: 1. Continue methimazole: 10 mg every Saturday, Saturday, Saturday 5 mg every Saturday, , Saturday, Saturday 4. Continue propranolol 10 mg every 8 hours as needed palpitations. 5. Recheck TFTs, and CBC in 6 weeks before follow-up Return in about 2 months (around 01/12/2021). Electronically signed by: Miles Lubin PA-C, [facility] 11/11/20 3:39 PM documented in this encounter [facility] Graves disease- Primary Toxic diffuse goiter without mention of thyrotoxic crisis or storm Liliya's thyroiditis Chronic lymphocytic thyroiditis [facility] Diagnosis Graves disease- Primary Toxic diffuse goiter without mention of thyrotoxic crisis or storm 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 of thyrotoxic crisis or storm [facility] Diagnosis Liliya's thyroiditis- Primary Chronic lymphocytic thyroiditis [facility] Diagnosis Liliya's thyroiditis- Primary Chronic lymphocytic thyroiditis Hypothyroidism during in third trimester Graves' disease in remission documented in this encounter [facility] Summary Purpose Family History No Family History Records FoundNo Family History Records FoundNo Family History Records FoundNo Family History Records Found Advance Directives No Advanced Directives Records FoundDocuments on File Type Date Recorded Patient 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 female Subjective: Patient is a 30 year old female referred for evaluation of newly diagnosed hyperthyroidism. She wasevaluated by her primary care physician on July 04, 2020 with generalized complaints of not feelingwell following Covid infection. She had recent with delivery of female infant July 26, 2019. She reports that she has a history of having had hypothyroidism 5 years ago, briefly treated with low-dose levothyroxine. Thyroid function has been routinely monitored by her primary care physician. TFTs were checked on 07/06/2020 and revealed free T4 3.08, and TSH less than 0.02. She has multiple symptoms of hyperthyroidism which are noted below. She has been bothered by palpitations at night especially. Review of Systems: Review of Systems Constitutional: Positive for fatigue. Negative for appetite change and unexpected weight change. HENT: Negative for trouble swallowing and voice change. Eyes: Positive for visual disturbance (trouble focusing, eyes tired). Negative for pain and redness. Respiratory: Positive for shortness of breath (recovering from Covid). Cardiovascular: Positive for palpitations. Negative for chest pain. Gastrointestinal: Negative for constipation and diarrhea. Endocrine: Positive for heat intolerance. Negative for cold intolerance. Musculoskeletal: Negative for neck pain. Neurological: Positive for tremors. Psychiatric/Behavioral: Positive for sleep disturbance (insomnia worse). The following portions of the patient's history were reviewed and updated as appropriate: allergies, current medications, past family history, past medical history, past social history, past surgicalhistory and problem list. No Known Allergies Current Outpatient Medications Medication Sig Dispense Refill busPIRone (BUSPAR) 10 MG tablet Take 10 mg by mouth 3 (three) times a day . doxycycline hyclate (VIBRAMYCIN) 100 MG capsule Take 100 mg by mouth 2 (two) times a day . esomeprazole (NEXIUM) 20 MG capsule Take 40 mg by mouth every morning before breakfast . polycarbophil (FIBERCON) 625 mg tablet Take 625 mg by mouth daily . vitamin with Ca-Iron-FA 27-1 mg Tab Take 1 tablet by mouth daily . traZODone (DESYREL) 50 MG tablet Take by mouth 2 (two) times a day . methIMAzole (TAPAZOLE) 10 MG tablet Take 1 (one) tablet (10 mg total) by mouth daily . 30 tablet 6 propranoloL (INDERAL) 10 MG tablet Take 1 tablet every 8 hours PRN palpitations. . 30 tablet 6 No current facility-administered medications for this visit. Past Medical History: Diagnosis Date Ankle sprain 11/25/2015 Boil, leg 10/11/2009 Disease of thyroid gland Hidradenitis 10/05/2013 Perforated ear drum 02/17/2010 History reviewed. No pertinent surgical history. History reviewed. No pertinent family history. Social History Socioeconomic History Marital status: Spouse name: Not on file Number of children: Not on file Years of education: Not on file Highest education level: Not on file Occupational History Not on file Social Needs Financial resource strain: Not on file Food insecurity Worry: Not on file Inability: Not on file Transportation needs Medical: Not on file Non-medical: Not on file Tobacco Use Smoking status: Never Smoker Smokeless tobacco: Never Used Substance and Sexual Activity Alcohol use: Yes Alcohol/week: 2.0 standard drinks Types: 2 Glasses of wine per week Comment: rarely Drug use: Not on file Sexual activity: Not on file Lifestyle Physical activity Days per week: Not on file Minutes per session: Not on file Stress: Not on file Relationships Social connections Talks on phone: Not on file Gets together: Not on file Attends mormonism service: Not on file Active member of club or organization: Not on file Attends meetings of clubs or organizations: Not on file Relationship status: Not on file Other Topics Concern Not on file Social History Narrative Not on file Objective: BP 135/85 Pulse 91 Wt 127.5 kg (281 lb) Wt Readings from Last 3 Encounters: 07/08/20 127.5 kg (281 lb) Physical Exam: Physical Exam Constitutional: She is oriented to person, place, and time. She appears well- developed and well-nourished. HENT: Head: Normocephalic and atraumatic. Eyes: Pupils are equal, round, and reactive to light. Conjunctivae and EOM are normal. Neck: Thyromegaly (mild thyromegaly) present. Cardiovascular: Normal rate, regular rhythm and normal heart sounds. Pulmonary/Chest: Effort normal and breath sounds normal. No respiratory distress. She has no wheezes. She has no rales. Musculoskeletal: General: No edema. Lymphadenopathy: She has no cervical adenopathy. Neurological: She is alert and oriented to person, place, and time. No cranial nerve deficit. Skin: Skin is warm and dry. No erythema. Psychiatric: She has a normal mood and affect. Her behavior is normal. Judgment and thought contentnormal. Lab review: 07/08/2020 TSH<0.01, FT4--2.1 (done after appointment), TPO and TSI pending 07/06/2020 TSH<0.02, FT4--3.08 Sodium 143, potassium 4.0, chloride 105, CO2 26, creatinine 0.5, estimated GFR 145.6, AST 28, ALT 29, WBC 5.6, hemoglobin 13.1, hematocrit 41.7, platelet count 357,000 Assessment: Dx: Hyperthyroidism Patient is a 30-year-old female with hyperthyroidism noted on recent thyroid function tests, and confirmed on testing after appointment today. TSI and TPO are pending. The differential diagnosis includes Graves' disease, Liliya's thyroiditis, thyroiditis, toxic thyroid nodule or nodules. We will plan to evaluate further with thyroid ultrasound and await thyroid antibodies. Due to her symptomatic hyperthyroidism we will begin methimazole 10 mg daily and propranolol 10 mg every 8 hoursas needed for palpitations. Problem List Items Addressed This Visit Endocrine Hyperthyroidism Relevant Medications methIMAzole (TAPAZOLE) 10 MG tablet propranoloL (INDERAL) 10 MG tablet Other Relevant Orders TSH (Completed) T4, Free (Completed) Thyroid peroxidase antibody (TPO) Thyroid Stimulating Immunoglobulin US Thyroid Only T4, Free TSH Plan: 1. TSH, FT4, TPO and TSI after appointment today. 2. Thyroid ultrasound 3. Start methimazole 10 mg daily 4. Start propranolol 10 mg every 8 hours as needed palpitations. 5. Follow-up in 5-6 weeks. Return in about 4 weeks (around 08/05/2020). Alecia UGARTE documented in this encounter* Mary Ellen Umaña MD - 08/18/2020 2:24 PM EDT Patient ID: Raul Ziegler is a 30 y.o. female Subjective: Patient is a 30 year old female referred for evaluation of newly diagnosed hyperthyroidism. She wasevaluated by her primary care physician on July 04, 2020 with generalized complaints of not feelingwell following Covid infection. She had recent with delivery of female infant July 26, 2019. She reports that she has a history of having had hypothyroidism 5 years ago, briefly treated with low-dose levothyroxine. Thyroid function has been routinely monitored by her primary care physician. TFTs were checked on 07/06/2020 and revealed free T4 3.08, and TSH less than 0.02. She had multiple symptoms of hyperthyroidism and she had been bothered by palpitations At her initial appointment, she was started on methimazole 10 mg daily and propranolol 10 mg every 8 hours as needed for palpitations. She states that she is feeling much better. Her palpitations have improved significantly and she is only needed propranolol a few times per week recently. She states that she and her may be considering a second and 6 months or so. Review of Systems: Review of Systems Constitutional: Positive for fatigue. Negative for appetite change and unexpected weight change. HENT: Negative for trouble swallowing and voice change. Eyes: Positive for visual disturbance (trouble focusing, eyes tired). Negative for pain and redness. Respiratory: Positive for shortness of breath (recovering from Covid). Cardiovascular: Positive for palpitations. Negative for chest pain. Gastrointestinal: Negative for constipation and diarrhea. Endocrine: Positive for heat intolerance. Negative for cold intolerance. Musculoskeletal: Negative for neck pain. Neurological: Positive for tremors. The following portions of the patient's history were reviewed and updated as appropriate: allergies, current medications, past family history, past medical history, past social history, past surgicalhistory and problem list. No Known Allergies Current Outpatient Medications Medication Sig Dispense Refill ALPRAZolam (XANAX) 1 MG tablet Take 1 mg by mouth nightly as needed for sleep .0.5mg PRN . busPIRone (BUSPAR) 10 MG tablet Take 10 mg by mouth 3 (three) times a day . esomeprazole (NEXIUM) 20 MG capsule Take 40 mg by mouth every morning before breakfast . methIMAzole (TAPAZOLE) 10 MG tablet Take 1 (one) tablet (10 mg total) by mouth daily . 30 tablet 6 vitamin with Ca-Iron-FA 27-1 mg Tab Take 1 tablet by mouth daily . propranoloL (INDERAL) 10 MG tablet Take 1 tablet every 8 hours PRN palpitations. . 30 tablet 6 traZODone (DESYREL) 50 MG tablet Take by mouth 2 (two) times a day . polycarbophil (FIBERCON) 625 mg tablet Take 625 mg by mouth daily . No current facility-administered medications for this visit. Past Medical History: Diagnosis Date Ankle sprain 11/25/2015 Boil, leg 10/11/2009 Disease of thyroid gland Hidradenitis 10/05/2013 Perforated ear drum 02/17/2010 History reviewed. No pertinent surgical history. History reviewed. No pertinent family history. Objective: BP 119/77 Pulse 81 Ht 5' 7 Wt 127.9 kg (282 lb) BMI 44.17 kg/m Wt Readings from Last 3 Encounters: 08/18/20 127.9 kg (282 lb) 07/08/20 127.5 kg (281 lb) Physical Exam: Physical Exam Constitutional: She is oriented to person, place, and time. She appears well- developed and well-nourished. HENT: Head: Normocephalic and atraumatic. Eyes: Pupils are equal, round, and reactive to light. Conjunctivae and EOM are normal. Neck: Thyromegaly (mild thyromegaly) present. Cardiovascular: Normal rate, regular rhythm and normal heart sounds. Pulmonary/Chest: Effort normal and breath sounds normal. No respiratory distress. She has no wheezes. She has no rales. Musculoskeletal: General: No edema. Lymphadenopathy: She has no cervical adenopathy. Neurological: She is alert and oriented to person, place, and time. No cranial nerve deficit. Skin: Skin is warm and dry. No erythema. Psychiatric: She has a normal mood and affect. Her behavior is normal. Judgment and thought contentnormal. Lab review: 08/15/2020 TSH 0.005, FT4--1.19 07/08/2020 TSH<0.01, FT4--2.1, TSI 6.3, TPO 475.9 07/06/2020 TSH<0.02, FT4--3.08 Sodium 143, potassium 4.0, chloride 105, CO2 26, creatinine 0.5, estimated GFR 145.6, AST 28, ALT 29, WBC 5.6, hemoglobin 13.1, hematocrit 41.7, platelet count 357,000 Radiology review: 07/22/2020 Thyroid ultrasound Thyromegaly, moderate heterogeneity, normal vascularity, no discrete nodules. Assessment: Dx: Hyperthyroidism Patient is a 30-year-old female with hyperthyroidism due to Graves' disease. 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 Her TFTs have improved significantly since starting methimazole 10 mg on 07/08/2020. Her symptoms have improved, and she has had a marked decrease in her palpitations. We discussed long-term treatment options including methimazole versus I-131 therapy versus surgery.Discussed that long-term treatment plan should be considered, since she and her are planning a during the next year if possible. The possibility of I-131 treatment was discussed; ifeffective she would need lifelong levothyroxine therapy; she is not sure she wants to be committed to lifelong medication. However this would be the safest for in the future. She could alsocontinue methimazole, with transition to very low- dose propylthiouracil or no medication during thefirst trimester of her , then low-dose methimazole if needed. Surgery is another option. She is going to consider long-term plan, but for now well continue methimazole. Problem List Items Addressed This Visit Endocrine Graves disease - Primary Relevant Medications methIMAzole (TAPAZOLE) 5 MG tablet Other Relevant Orders T4, Free TSH Liliya's thyroiditis Relevant Medications methIMAzole (TAPAZOLE) 5 MG tablet Plan: 1. Continue methimazole 10 mg daily for 2 weeks, and then decrease to 1/2- 10 mg tablet or 1-5 mg tablet on 09/03/20. 4. Continue propranolol 10 mg every 8 hours as needed palpitations. 5. Follow-up in 5-6 weeks; check TFTs before next appointment.. Return in about 6 weeks (around 09/29/2020). Alecia UGARTE documented in this encounter Assessments Diagnosis Hyperthyroidism Thyrotoxicosis without mention of goiter or other cause, without mention of thyrotoxic crisis or storm Diagnosis Graves disease- Primary Toxic diffuse goiter without mention of thyrotoxic crisis or storm Liliya's thyroiditis Chronic lymphocytic thyroiditis Instructions * Patient Instructions* Mary Ellen Umaña MD - 08/18/2020 2:42 PM EDT Reduce methimazole to 1/2 of a 10 mg or 1 - 5 mg tablet on September 03. Recheck labs before next appointment. documented in this encounter Additional Source Comments INFORMATION SOURCE (unrecogn ized section and content) DATE CREATED AUTHOR AUTHOR'S ORGANIZ ATION 01/01/2023 [facility] DATE CREATED AUTHOR AUTHOR'S ORGANIZ ATION 02/20/2023 [facility] DATE CREATED AUTHOR AUTHOR'S ORGANIZ ATION 03/24/2023 [facility] Reason for Visit (unrecogniz ed section and content) Status Reason Specialty Diagnoses / Procedures Referred By Contact Referred To Contact Closed Specialty Services Required/Patient 's Best Interest Endocrinology Diagnoses Hyperthyroidism Maricruz Torres, [employer] [address] [place] [address] Mary Ellen Umaña MD [address] [place] [id number] Reason Comments Thyroid Problem Reason Comments Thyroid Problem Liliya's Thyroiditis Reason Comments Medication Refill Reason Comments Thyroid Problem Hypothyroidism during Care Teams (unrecognized sec tion and content) Potline Monitor Relationship Specialty Start Date End Date Jaspaljolie Maricruzbronson Conway CNP [address] [place] [address] PCP - General Nurse Practitioner 07/07/20 Potline Monitor Relationship Specialty Start Date End Date Jaspaljolie Maricruzbronson Conway CNP [address] [place] [address] PCP - General Nurse Practitioner 07/07/20 Potline Monitor Relationship Specialty Start Date End Date Maricruz Torres CNP [address] [place] [address] PCP - General Nurse Practitioner 07/07/20 Potline Monitor Relationship Specialty Start Date End Date Maricruz Torres CNP [address] [place] [address] PCP - General Nurse Practitioner 07/07/20 Potline Monitor Relationship Specialty Start Date End Date Jose Ramon Maricruz JACOB Conway [address] [place] [address] PCP - General Nurse Practitioner 07/07/20 Potline Monitor Relationship Specialty Start Date End Date Jose Ramon Maricruzbronson Conway CNP [address] [place] [address] PCP - General Nurse Practitioner 07/07/20 FOR RECORDS PERTAINING TO PATIENTS WHO ARE OR HAVE BEEN ENROLLED IN A CHEMICAL DEPENDENCY/SUBSTANCEABUSE PROGRAM, SOME INFORMATION MAY BE OMITTED. This clinical summary was aggregated from multiple sources. Caution should be exercised in using it in the provision of clinical care. This summary normalizes information from multiple sources, and as a consequence, information in this document may materially change the coding, format and clinical context of patient data. In addition, data may be omitted in some cases. CLINICAL DECISIONS SHOULD BE BASED ON THE PRIMARY CLINICAL RECORDS. [facility] [employer] [facility]. provides no warranty or guarantee of the accuracy or completeness of information in this document.
[2023-05-07] MEDS: Lactated Ringers 1,000 ML 50 ML IV (08:45)
[2023-05-07 08:58] LABS: Absolute Lymphocyte Count 1.82 X10^3/uL (0.83-4.51); Absolute Neutrophil Count 9.1 X10^3/uL (2.0-7.7); Basophil# 0.04 X10^3/uL; Basophil% 0.3 % (0-1); Eosinophil# 0.05 X10^3/uL; Eosinophils% 0.4 % (0-5); Hematocrit 35.6 % (37-47); Hemoglobin 11.2 g/dL (12.0-15.0); Lymphocyte # 1.82 X10^3/ul (0.83-4.51); Lymphocyte % 15.7 % (19-41); Mean Corp Hgb Conc 31.5 g/dL (32-36); Mean Corpuscular Volume 85.8 fL (81-99); Mean Platelet Vol. 9.2 fl (6.2-12.0); Monocyte# 0.53 X10^3/uL; Monocyte% 4.6 % (0-10); NRBC Flagged by Analyzer 0 % (0-5); Neutrophil # 9.06 X10^3/uL (2.7-7.7); Neutrophil % 78.4 % (47-70); Platelet Count 318 K/mm3 (150-450); RBC Distribution Width CV 13.8 % (11.6-14.6); RBC Distribution Width SD 42.7 fl (35.1-43.9); Red Blood Count 4.15 M/mm3 (4.2-5.4); White Blood Count 11.6 K/mm3 (4.4-11.0)
[2023-05-07 09:13] LABS: ROM Internal Control Test YES-OK TO RESULT pt. (Internal QC)
[2023-05-07 09:14] LABS: ROM Patient Test POSITIVE (Negative); Record Kit Lot#, ROM+ K1374
[2023-05-07 10:01] LABS: Syphilis Antibodies Non-reactive
--- NOTE | 2023-05-07 12:27 | HP.PCM.OB_ITS ---
HPI - General General Date of Admission: 05/07/23 Date of Service: 05/07/23 HPI Narrative RAUL ZIEGLER, is a 33 F a at 40.1 weeks gestation who presents with SROM at 0530 this am for clear fluid Maternal Data Information SHLOMO Calculator Estimated Delivery Date Method Current WG Current Estimate 05/06/23 Ultrasound #2 40w 1d Other Estimates 04/19/23 LMP (Certain) 42w 4d 05/15/23 Ultrasound #1 38w 6d Final SHLOMO: 05/06/23 Final SHLOMO Source: US >20 weeks Gestational age: 40.1 [facility] Medical History Anemia Anxiety Contraceptive management Depression Family history of Down syndrome Gestational diabetes Graves disease Liliya's disease Head ache Hemorrhoids History of panic attacks HPV test positive Hydradenitis PTSD (post-traumatic stress disorder) Home Medications vitamin with calcium no.72-iron 27 mg-folic acid 1 mg tablet 1 tab PO QDAY supplement 07/25/19 [History Last Taken 05/06/23 00:00] omeprazole 20 mg capsule,delayed release 20 mg PO DAILY 08/28/21 [History Last Taken Unknown] levothyroxine 50 mcg capsule 50 mcg PO DAILY 12/17/22 [History Last Taken 05/06/23 06:00] doxylamine succinate 25 mg tablet (Sleep Aid (doxylamine)) 12.5 mg (1/2 x 25 mg) PO BID PRN anxiety 30 days #60 tabs 12/27/22 [Rx Last Taken Unknown] bupropion HCl 150 mg 24 hr tablet, extended release (Wellbutrin XL) 150 mg PO QAM #90 tabs 02/11/23 [Rx Last Taken 05/06/23 00:00] trazodone 100 mg tablet 100 mg PO QHS PRN sleep #90 tabs 02/11/23 [Rx Last Taken 05/06/23 00:00] hydrocortisone 2.5 % topical cream with perineal applicator (Proctozone-HC) 1 applic LA BID-QID PRN hemorrhoids #30 grams 04/25/23 [Rx Last Taken Unknown] alprazolam 0.5 mg tablet mg 05/07/23 [History Last Taken Unknown] magnesium 250 mg tablet 1,000 mg PO DAILY restless legs 05/07/23 [History Last Taken 05/06/23] Allergy/AdvReac Type Severity Reaction Status Date / Time No Known Allergies Allergy Verified 05/07/23 08:35 Family History Father Hypertension Grandmother Cancer Grandmother Breast cancer Grandfather Cancer Grandfather Cancer Mother Cancer, Onset Age: 65 myeloma Surgical History History of ear surgery history of gastric sleeve Social History adopted: No household members: family housing: house number of children: 1 current occupational status: employed current occupation: [employer] pets and animals: Yes pets and animals: dog(s) history of recent travel: No sexually active: Yes Smoking Status: Never smoker second hand exposure: No alcohol intake: former substance use type: does not use caffeine: Yes Type: carbonated beverages and coffee what type of physical activity do you participate in: none seatbelt use: always do you feel safe at home: Yes additional social history: - Gilberto History 3 Elective abortions Hx Para 1 Spontaneous abortions 1 Hx # Term Pregnancies 1 Ectopic pregnancies Hx # Pregnancies Multiple births # of living children 1 Past Pregnancies Del. Date Name GA/Weeks Outcome Route Bth Weight Gen Labor Lgth Anesthesia Del [facility] Provider FOB 07/26/19 Denis 38 live - full term 7lbs 4oz Female none [facility] Delivery Date: 07/26/19 Last Updated by: Veronica Madison GDMA 1 Visit Details Expected Delivery Route/Plan Labor Preferences- CB/BF classes: [] labor support person: [] labor intervention preferences: [] pain management options preferred: [] cut cord/dad catch: [] : [] PP control planned: [] discussed possible routes of delivery and associated risks: [] special requests: [] Plans Covid status: declined Flu vaccine: given Tdap vaccine: given Rhogam: na LARC form signed: declined movement and labor precautions reviewed. Problem list reviewed and updated with the most current plan of care details and appropriate orders placed. Relevant counseling for the gestational age provided. Continue routine care and follow up unless otherwise noted in visit notes/problem list details OB Flowsheet Initial Weight: Not Recorded Date -?-?-?-?-?-?-?-?-?-?-?-?- EGA Weight BP Urine Prot -?-?-?-?-?-?-?-?-?-?-?-?- Glucose FHR FuHt Pres Dilation -?-?-?-?-?-?-?-?-?-?-?-?- Effaced St Visit Note 09/11/22 -?-?-?-?-?-?-?-?-?-?-?-?- 6w 1d 292 lb 4 oz 131/85 -?-?-?-?-?-?-?-?-?-?-?-?- -?-?-?-?-?-?-?-?-?-?-?-?- KW- SM scanned. approx 5 weeks. yolk sac visible. no pole yet. rescan in 14 days KW- SM scanned. approx 5 wee ks. yolk sac visible. rescan in 14 days 09/26/22 -?-?-?-?-?-?-?-?-?-?-?-?- 8w 2d 293 lb 126/84 Negative -?-?-?-?-?-?-?-?-?-?-?-?- Negative 171 -?-?-?-?-?-?-?-?-?-?-?-?- JV- CRL measurin g 7 weeks 6 days. pt to return for colpo in 2 weeks. will order nIPT at that time also .glucola given. 10/11/22 -?-?-?-?-?-?-?-?-?-?-?-?- 10w 3d 293 lb 6 oz 127/80 Nega tive -?-?-?-?-?-?-?-?-?-?-?-?- Negative 165 -?-?-?-?-?-?-?-?-?-?-?-?- JV- CRL now gregory uring 10 weeks 3 days very clearly. her pap was LGSIL without hpv this time. will repeat pap post . 10/22/22 -?-?-?-?-?-?-?-?-?-?-?-?- 12w 0d 296 lb 6 oz 133/83 Nega tive -?-?-?-?-?-?-?-?-?-?-?-?- Negative 160 -?-?-?-?-?-?-?-?-?-?-?-?- KW-no vb/yung mendoza. NIPT done. TSH and free T4 to be drawn with 3 hour GCT-fr hollyy. handheld US done today. 11/19/22 -?-?-?-?-?-?-?-?-?-?-?-?- 16w 0d 303 lb 4 oz 128/82 Nega tive -?-?-?-?-?-?-?-?-?-?-?-?- Negative 146 -?-?-?-?-?-?-?-?-?-?-?-?- MH-No VB. Feelin g movement. Cont to check FBS and 1 hr pp. 12/17/22 -?-?-?-?-?-?-?-?-?-?-?-?- 20w 0d 300 lb 113/62 Negative -?-?-?-?-?-?-?-?-?-?-?-?- Negative 145 -?-?-?-?-?-?-?-?-?-?-?-?- KW-no VB. +FM. C ont to check FBS and 1 hr PP once daily. now on Synthroid 11/22-by endo. 01/14/23 -?-?-?-?-?-?-?-?-?-?-?-?- 24w 0d 303 lb 4 oz 132/70 Trac e -?-?-?-?-?-?-?-?-?-?-?-?- Negative 140 -?-?-?-?-?-?-?-?-?-?-?-?- LC- no vb/ctx/lo f. good fm. fasting and PP stable. remaining 24 weeks labs ordered. continue glucose monitoring. LC- no vb/ctx/lof. good fm. fasting and PP stable. remaining 24 weeks labs order ed. continue glucose monitoring. anticipate increase to 4xdaily during 28-30 weeks. father placed on hospice care. emotional support provided, counseling forms given. 02/04/23 -?-?-?-?-?-?--?-?-?-?-?-?- 27w 0d 310 lb 110/76 110/76 Trace -?-?-?-?-?-?-?-?-?-?-?-?- Negative 145 -?-?-?-?-?-?-?-?-?-?-?-?- KW-no vb/lof/ctx . good fm. problem visit today for malodorous vaginal discharge x 1 month, no itching,irritation. culture done today. 02/11/23 -?-?-?-?-?-?-?-?-?-?-?-?- 28w 0d 309 lb 6 oz 130/78 Nega tive -?-?-?-?-?-?-?-?-?-?-?-?- Negative 149 30 -?-?-?-?-?-?-?-?-?-?-?-?- JV- received tda p and flu today. plan nsts at 34 weeks or sooner as needed. 3rd trimester labs today. 02/25/23 -?-?-?-?-?-?-?-?-?-?-?-?- 30w 0d 306 lb 8 oz 121/80 Nega tive -?-?-?-?-?-?-?-?-?-?-?-?- Negative 145 -?-?-?-?-?-?-?-?-?-?-?-?- SM- no vb lof go od fm n oreuglar ctx 03/11/23 -?-?-?-?-?-?-?-?-?-?-?-?- 32w 0d 311 lb 8 oz 135/81 Nega tive -?-?-?-?-?-?-?-?-?-?-?-?- Negative 166 -?-?-?-?-?-?-?-?-?-?-?-?- JV- has growth u s x 2 scheduled. start nsts next visit. no lof, vaginal bleeding, or dec fm. biggest complaint today is restless legs. 03/25/23 -?-?-?-?-?-?-?-?-?-?-?-?- 34w 0d 315 lb 8 oz 125/76 Nega tive -?-?-?-?-?-?-?-?-?-?-?-?- Negative 150 -?-?-?-?--?-?-?-?-?-?-?-?- JV- no lof, vagi nal bleeding, or dec fm. NST reactive. 04/01/23 -?-?-?-?-?-?-?-?-?-?-?-?- 35w 0d 315 lb 8 oz 132/84 Nega tive -?-?-?-?--?-?-?-?-?-?-?-?- Negative 145 Cephalic -?-?-?-?-?-?-?-?-?-?-?-?- JV- nst reactive . cephalic on bedside scan today. plan for gbs and exam next visit. 04/08/23 -?-?-?-?-?-?-?-?-?-?-?-?- 36w 0d 315 lb 8 oz 135/79 Nega tive -?-?-?-?-?-?-?-?-?-?-?-?- Negative 130 Cephalic 1 -?-?-?-?-?-?-?-?-?-?-?-?- 20 -4 LC- nst re active. gbs collected. denies lof/vb/ctx. good fm. 04/15/23 -?-?-?-?-?-?-?-?-?-?-?-?- 37w 0d 317 lb 6 oz 129/82 -?-?-?-?-?-?-?-?-?-?-?-?- 140 -?-?-?-?-?-?-?-?-?-?-?-?- JV- nst reactive . growth scan 5oth%. has another appt so had to leave before could do a pelvic exam. 04/22/23 -?-?-?-?-?-?-?-?-?-?-?-?- 38w 0d 317 lb 6 oz 138/73 Nega tive -?-?-?-?-?-?-?-?-?-?-?-?- Negative 130 Cephalic 1 -?-?-?-?-?-?-?-?-?-?-?-?- 20 -3 JV- reacti ve nst. wants membranes stripped at 39 weeks. NST FHR Rate Baby A Baseline: 140 Variability:: Moderate Accelerations:: 15 x 15 NST Reactive:: Yes FHR Category:: Category I Uterine Activity:: irregular q 3-7 minutes ROS Constitutional Constitutional: Denies change in weight, fatigue, fever(s), headache(s), poor appetite or weakness Eyes Eyes: Denies blurry vision, change in vision, floaters, seeing flashes or spots in vision ENT HEENT: Denies dizziness, headache(s), loss taste/smell or sore throat Cardiovascular Cardiovascular: Denies chest pain, dizziness, dyspnea, irregular heart rhythm, lightheadedness, palpitations or rapid heart rate Respiratory/Chest Respiratory/Chest: Denies change in mental status, chest tightness, cough, dyspnea or breast pain Gastrointestinal Gastrointestinal: Denies anorexia, chewing difficulty, constipation, diarrhea or weight changes Genitourinary Genitourinary: Denies difficulty urinating, dysuria, flank pain, genital pain, urinary frequency or urinary urgency Musculoskeletal Musculoskeletal: Denies back pain, difficulty walking, extremity pain, joint pain, muscle cramps or muscle weakness Integumentary Integumentary: Denies lesions or unusual bruising Neurologic Neurologic: Denies abnormal movements, abnormal speech, dizziness, numbness, seizure-like activity, syncope or weakness Psychiatric Psychiatric: Denies behavioral changes, change in appetite, confusion, depression, homicidal ideation, suicidal ideation or suicidal thoughts Endocrine Endocrinology: Denies excessive sweating, polydipsia or polyuria Hematologic/Lymphatic Hematologic/Lymphatic: Denies anemia Allergic/Immunologic Allergic/Immunologic: Denies itchy eyes, lip swelling, throat swelling, tongue swelling or wheezing Vital Signs Vital Signs Vital Signs: 05/07/23 08:32 05/07/23 08:32 05/07/23 08:30 Temperature Temperature Source Temporal Pulse Rate 100 Blood Pressure 140/72 H BP Systolic 140 BP Diastolic 72 Pulse Ox 05/07/23 08:30 05/07/23 08:49 05/07/23 08:49 Temperature 97.9 F Temperature Source Pulse Rate 100 Blood Pressure BP Systolic BP Diastolic Pulse Ox 97 05/07/23 08:54 05/07/23 08:54 05/07/23 08:59 Temperature Temperature Source Pulse Rate 99 91 Blood Pressure BP Systolic BP Diastolic Pulse Ox 98 05/07/23 08:59 05/07/23 12:01 05/07/23 12:01 Temperature Temperature Source Pulse Rate 96 Blood Pressure 133/81 H BP Systolic 133 BP Diastolic 81 Pulse Ox 97 05/07/23 12:00 05/07/23 12:00 Temperature 97.9 F Temperature Source Temporal Pulse Rate Blood Pressure BP Systolic BP Diastolic Pulse Ox Weight Weight: 317 lb 7.45 oz Body Mass Index (BMI) 49.7 Physical Exam Const alert, oriented x3 and no apparent distress General Appearance: cooperative Orientation / Consciousness: awake HEENT normocephalic Neck full ROM Lymph Lymphatic: no lymphadenopathy noted Chest inspection of chest normal Resp normal respiratory effort and normal air movement Effort and Inspection: able to speak in complete sentences and symmetric chest movement GI soft to palpation and non-tender Inspection: gravid Palpation: soft; Negative for tender external exam normal Manual OB Exam: presentation cephalic, dilated 4, effaced 60 and station - 2 Back/Spine normal to inspection Extremity normal to inspection and full ROM Skin no rashes or lesions noted Psych mental status grossly normal Appearance: grossly normal Speech: normal speech Labs Labs Labs: Blood Type AB POSITIVE Antibody Screen NEGATIVE Hct 35.6 % (37-47) L Hgb 11.2 g/dL (12.0-15.0) L Obstetrics Ultrasound Syphilis Total Ab Non-reactive Rubella IgG Antibody Reactive (Nonreactive) Hep Bs Antigen Non-Reactive (Nonreactive) Hepatitis C Antibody Non-Reactive (Nonreactive) Chlamydia DNA (JEB) Negative (Negative) N.gonorrhoeae DNA (JEB) Negative (Negative) HIV 1&2 Antibody Non-Reactive (Nonreactive) Glucose 1 Hr 50 gm 155 mg/dL (70-140) H Gest Glucose Tolerance MG/DL Group B Strep DNA Negative (Negative) Rhogam given: No Miscellaneous Test Assessment & Plan (1) SROM (spontaneous rupture of membranes): PLAN: Patient presents IAL, plan expectant management for , pitocin/AROM PRN if needed. Pain management: plans no epidural. GBS negative. Management of any complications: GDM, morbid obesity, graves disease I have reviewed the [facility] and made any clinically relevant updates. (2) Thrombosed external hemorrhoid: (3) History of panic attacks: (4) Anemia: COMMENT: add oral iron, repeat cbc in 4 weeks (on 03/14/2023) (5) Morbid obesity: COMMENT: start NSTs 34 weeks or sooner as needed. (6) Anxiety during : (7) : QUALIFIERS: Weeks of gestation: 39 weeks Qualified Code(s): Z3A.39 - 39 weeks gestation of COMMENT: gbs negative.NIPT low risk, nl anatomy (8) Supervision of high-risk : QUALIFIERS: Trimester: second trimester Qualified Code(s): O09.92 - Supervision of high risk , unspecified, second trimester COMMENT: PRR SHLOMO 05/15/23 PC [place] Spouse iGlberto (9) LGSIL on Pap smear of cervix: COMMENT: had HPV + (low risk) pap and 1 year later lgsil only without HPV recommendations for colp, plan at 6 week post visit. (10) History of gastric surgery: COMMENT: screen for nutritional deficiency-labs ordered (11) Vitamin D imbalance: COMMENT: Vit D elevated. (12) History of gestational diabetes mellitus (GDM): COMMENT: early GCT elevated. Could not complete 3 hr. Testing FBS and 1 hr pp and all below 140. Diet reviewed. Will continue to test as needed. (13) HPV test positive: COMMENT: negative pap +HPV (14) Graves disease: COMMENT: thyroid labs ordered (15) Liliya's disease: Charges/Coding Multi Select Codes Urinary/Genital Urinary/Genital CPT Codes: No Charge
[2023-05-07] MEDS: Oxytocin 15 Units/NS 250ml 15 UNITS/250 ML IV.SOLN 2 UNITS IV (14:31)
--- NOTE | 2023-05-07 16:31 | PCM.PN.BLA ---
Progress Note Coping well with contractions but expressed desire for epidural current tracing: FHT: 135 Moderate variability reactive no decelerations category I tracing [place]: 3-4 minute Contractions Membranes: SROM at 0530 this am-remain clear SVE:/-2 Pitocin started and at 4 mu reviewed tracing abnormalities since last note:none A/P: Continue with position changes Titrate pitocin per protocol Epidural per anesthesia Anticipate Dr Lopez aware of above assessment and agrees with plan of care Assessment & Plan Assessment/Plan (1) SROM (spontaneous rupture of membranes): (2) Thrombosed external hemorrhoid: (3) History of panic attacks: (4) Anemia: (5) Morbid obesity: (6) Anxiety during : (7) : QUALIFIERS: Weeks of gestation: 39 weeks Qualified Code(s): Z3A.39 - 39 weeks gestation of (8) Supervision of high-risk : QUALIFIERS: Trimester: second trimester Qualified Code(s): O09.92 - Supervision of high risk , unspecified, second trimester (9) LGSIL on Pap smear of cervix: (10) History of gastric surgery: (11) Vitamin D imbalance: (12) History of gestational diabetes mellitus (GDM): (13) HPV test positive: (14) Graves disease: (15) Liliya's disease: Multi Select Codes Urinary/Genital Urinary/Genital CPT Codes: No Charge
[2023-05-07] MEDS: LACTATED RINGERS 500 ML 999 ML IV (16:33)
[2023-05-07] MEDS: fentaNYL-bupivacaine (epidural) 100 ML BAG EPIDURAL (17:25)
[2023-05-07] MEDS: Lactated Ringers 1,000 ML 200 ML IV (18:11)
--- NOTE | 2023-05-07 19:42 | PCM.PN.BLA ---
Progress Note comfortable with epidural current tracing: FHT: 130 Moderate variability reactive no decelerations category I tracing [place]: 2-4 Contractions MVU 200 Membranes: remains clear fluid SVE:8.5/90/-1 A/P: Continue with position changes Titrate pitocin per protocol Epidural per anesthesia Anticipate Dr Lopez aware of above assessment and agrees with plan of care Assessment & Plan Assessment/Plan (1) SROM (spontaneous rupture of membranes): (2) Thrombosed external hemorrhoid: (3) History of panic attacks: (4) Anemia: (5) Morbid obesity: (6) Anxiety during : (7) : QUALIFIERS: Weeks of gestation: 39 weeks Qualified Code(s): Z3A.39 - 39 weeks gestation of (8) Supervision of high-risk : QUALIFIERS: Trimester: second trimester Qualified Code(s): O09.92 - Supervision of high risk , unspecified, second trimester (9) LGSIL on Pap smear of cervix: (10) History of gastric surgery: (11) Vitamin D imbalance: (12) History of gestational diabetes mellitus (GDM): (13) HPV test positive: (14) Graves disease: (15) Liliya's disease: Multi Select Codes Urinary/Genital Urinary/Genital CPT Codes: No Charge
--- NOTE | 2023-05-07 20:45 | EX.PCM.OBRPT ---
Assessment & Plan (1) Vaginal delivery: COMMENT: 40.1 Boy SARA Fuentes (2) SROM (spontaneous rupture of membranes): (3) Thrombosed external hemorrhoid: (4) History of panic attacks: (5) Anemia: COMMENT: add oral iron, repeat cbc in 4 weeks (on 03/14/2023) (6) Morbid obesity: COMMENT: start NSTs 34 weeks or sooner as needed. (7) Anxiety during : (8) : QUALIFIERS: Weeks of gestation: 39 weeks Qualified Code(s): Z3A.39 - 39 weeks gestation of COMMENT: gbs negative.NIPT low risk, nl anatomy (9) Supervision of high-risk : QUALIFIERS: Trimester: second trimester Qualified Code(s): O09.92 - Supervision of high risk , unspecified, second trimester COMMENT: PRR SHLOMO 05/15/23 PC Miller Spouse Gilberto (10) LGSIL on Pap smear of cervix: COMMENT: had HPV + (low risk) pap and 1 year later lgsil only without HPV recommendations for colp, plan at 6 week post visit. (11) History of gastric surgery: COMMENT: screen for nutritional deficiency-labs ordered (12) Vitamin D imbalance: COMMENT: Vit D elevated. (13) HPV test positive: COMMENT: negative pap +HPV (14) Graves disease: COMMENT: thyroid labs ordered (15) Liliya's disease: (16) History of gestational diabetes mellitus (GDM): COMMENT: early GCT elevated. Could not complete 3 hr. Testing FBS and 1 hr pp and all below 140. Diet reviewed. Will continue to test as needed. Maternal Data Information SHLOMO Calculator Estimated Delivery Date Method Current WG Current Estimate 05/06/23 Ultrasound #2 40w 1d Other Estimates 04/19/23 LMP (Certain) 42w 4d 05/15/23 Ultrasound #1 38w 6d Final SHLOMO: 05/06/23 Final SHLOMO Source: US >20 weeks Gestational age: 40.1 Vaginal Delivery Maternal Presentation Maternal Presentation: Spontaneous Rupture of Membranes Maternal Presentation: Progressed well to 10cm dilated and made steady progress with effective maternal pushing. Delivered the head in YUSRA presentation. The head was delivered atraumatically and no nuchal cord was identified. The anterior and posterior shoulders delivered without complication followed by the rest of the infant and the infant was placed on the maternal abdomen. Delayed cord clamping was employed for approximately 3 minutes. Cord was clamped and cut and gentle traction was applied to the cord and the placenta delivered spontaneously. Immediately following, it was noted to be intact with a 3 vessel cord. The perineum and vagina were inspected and noted to have no laceration . EBL was 300cc. Patient and infant tolerated delivery well. Apgars 9/9. Dr Lopez notified of vaginal delivery and orders reviewed. Physician agrees with current plan of care. Operative Information Date of Procedure: 05/07/23 Pre-Operative Diagnosis: See AP comments Post-Operative Diagnosis: Same Surgery / Procedure Performed: Spontaneous Vaginal Delivery fitness sales associate #1: Carol Soler Type of Anesthesia: Epidural Estimated Blood Loss: 300 Time of Delivery: 20:15 Findings Presentation: YUSRA Amniotic Membrane Rupture Type: Spontaneous Time of Membrane Rupture: 0530 Amniotic Fluid Description: Clear Placental Delivery Description: Spontaneous Placenta Disposition: [facility] Cord Vessel Description: 3 Vessels Cord Entanglement: None Infant A Gender: Male (1 minute): 9 (5 minute): 9 Delayed Cord Clamping: Yes Post Vaginal Delivery Medications Given After Delivery: IV Pitocin Episiotomy Description: None Laceration: None Complication Complications: None Multi Select Codes Urinary/Genital Urinary/Genital CPT Codes: 72590 Vaginal Delivery global pkg
--- NOTE | 2023-05-07 20:48 | DCINST_ITS ---
Discharge Instructions Diet Discharge Diet: No restrictions Activity Discharge Activity: Return to Normal Activity May resume sexual activity in: 6-8 weeks Dressing / Incision Call your doctor if you observe: Fever of 101 or Higher, Coldness, Increased Pain, Numbness or Tingling, Change in Color, Inability to urinate, Inability to have a bowel movement, Using more than 1 pad per hour, Shortness of breath, Dizziness, Fainting spells, Swelling in the ankles, Chest pain, Increased palpitations (irregular heartbeat), Calf discomfort and Uncontrolled pain Follow Up Care Please Follow Up With: Carol Soler CNM When: Please call the office to schedule your follow up appointment in 6 weeks. If you had high blood pressure please call to schedule an appointment in 2 weeks. Test Results: Test results from this visit will be discussed in further detail at your follow- up appointment, if applicable. Discharge Plan Admission Admit Date/Time: 05/07/23 08:00 Attending Provider: Carol Soler Primary Care Provider: Ida Kirkpatrick Discharge Orders/Prescriptions Prescriptions: No Action omeprazole 20 mg capsule,delayed release(DR/EC) 20 mg PO DAILY levothyroxine 50 mcg capsule 50 mcg PO DAILY Sleep Aid (doxylamine) 25 mg tablet 12.5 mg PO BID PRN (Reason: anxiety) 30 Days Qty: 60 1RF bupropion HCl [Wellbutrin XL] 150 mg tablet extended release 24 hr 150 mg PO QAM Qty: 90 1RF trazodone 100 mg tablet 100 mg PO QHS PRN (Reason: sleep) Qty: 90 1RF PNV,calcium 04-[id number]-sgafr acid 1 EACH tablet 1 tab PO QDAY alprazolam 0.5 mg tablet 0.5 mg PO Q12H PRN PRN (Reason: anxiety) Patient Comments: TAKE 1/2 TO 1 TABLETS BY MOUTH EVERY 12 HOURS NEEDED FOR ANXIETY magnesium 250 mg tablet 1,000 mg PO DAILY hydrocortisone [Proctozone-HC] 2.5 % cream with perineal applicator 1 applic MT BID-QID PRN (Reason: hemorrhoids) Qty: 30 0RF Referrals / Follow Up: Ida Kirkpatrick DO [Primary Care Provider] -
[2023-05-07] MEDS: Oxytocin 15 Units/NS 250ml 15 UNITS/250 ML IV.SOLN 83 UNITS IV (20:58)
[2023-05-07] MEDS: Acetaminophen 500 MG Tablet 1000 MG PO (21:09)
[2023-05-07 22:21] LABS: Bedside Glucose 108 mg/dL (74-106)
[2023-05-08] VITALS (7 sets, daily range): BP systolic 96–122; BP diastolic 51–68; PULSE 77–96; RESP 16; TEMP 36.1–36.9; O2SAT 95–96
[2023-05-08] MEDS: Ibuprofen 600 MG Tablet PO ×3 (02:11→18:15)
[2023-05-08] MEDS: Levothyroxine 50 MCG Tablet PO (06:06)
[2023-05-08] MEDS: Acetaminophen 500 MG Tablet 1000 MG PO ×2 (06:20→16:28)
[2023-05-08 06:34] LABS: Bedside Glucose 90 mg/dL (74-106)
--- NOTE | 2023-05-08 07:47 | PCM.PN.OB ---
Subjective Subjective Patient doing well without complaints. Tolerating PO. Ambulating and voiding without difficulty. Feeding well. Denies chest pain, shortness of breath, calf pain/swelling, fevers, chills, lightheadedness. Objective Data Objective Data Vital Signs: Vital Signs Temp Pulse Resp BP Pulse Ox O2 Del Method 97.0 F L 84 16 112/61 96 Room Air 05/08/23 06:11 05/08/23 06:11 05/08/23 06:11 05/08/23 06:11 05/08/23 02:05 05/08/23 06:11 Oxygen Delivery Method Room Air Weight: 317 lb 7.45 oz Body Mass Index (BMI) 49.7 Intake & Output: Intake and Output for Last 24 Hours 05/06/23 05/07/23 05/08/23 23:59 23:59 23:59 Intake Total 2714.00 / 2714.00 0 / 0 Output Total 950 / 950 550 / 550 Balance 1764.00 / 1764.00 -550 / -550 Lab / Micro Data 05/07/23 08:45 Labs: Laboratory Results - last 24 hr 05/07/23 08:45: WBC 11.6 H, RBC 4.15 L, Hgb 11.2 L, Hct 35.6 L, MCV 85.8, MCH 27.0, MCHC 31.5 L, RDW Std Deviation 42.7, RDW Coeff of Alina 13.8, Plt Count 318, MPV 9.2, Immature Gran % (Auto) 0.600, Neut % (Auto) 78.4 H, Lymph % (Auto) 15.7 L, Phillips % (Auto) 4.6, Eos % (Auto) 0.4, Baso % (Auto) 0.3, Absolute Neuts (auto) 9.1 H, Absolute Lymphs (auto) 1.82, Nucleated RBC % 0, Vag Amniotic Fld Detect POSITIVE H, Syphilis Total Ab Non-reactive, Blood Type AB POSITIVE, Antibody Screen NEGATIVE 05/07/23 21:58: POC Glucose 108 H 05/08/23 06:09: POC Glucose 90 Physical Exam Const alert and oriented x3 HEENT normocephalic Eyes PERRL Neck full ROM Resp normal respiratory effort GI soft to palpation GI Narrative: FF below U Assessment & Plan (1) Vaginal delivery: COMMENT: 40.1 Boy Alfredo, KW PLAN: Plan s/p PPD # 1 1. routine post delivery care 2. breast feeding- support given 3. rh positive 4. rubella immune
[2023-05-08] MEDS: Pantoprazole Sodium 20 MG Tablet PO (10:19)
--- NOTE | 2023-05-08 11:19 | CASEMGMT ---
Social Work Assessment Labor and Delivery Unit Patient Address:[address] [place] [address] Phone number: [phone] Date of Referral: 05/08/23 Time of Referral:? [id number] Referred By:Carol Soler Date of Intervention: ??05/08/23 Time of Intervention:? 1030 Reason for Referral:? history of anxiety Sw completed chart review and acknowledges social work consult due to maternal mental health history of anxiety. Sw presented to bedside and introduced self to mother of baby (HOA- [place]) and father of baby (FOSally- Gilberto). Sw explained reason for sw involvement and completed psychosocial assessment. History obtained from: medical records, MOB and FOB Household composition: Currently residing in the family home is INNA CAMARA, their 3 year old daughter ([place]: : 07/26/19) and now baby. Parents deny any housing issues or concerns at this time. Patient's parent/guardian status:? ?Parents report that they have been together for 10 years, they met online and have a lot of mutual friends. No concerns of domestic violence or intimate partner violence at this time. Medical History: ?HOA is 33 year old female who is 3, para 1- now 2 following labor and delivery of . HOA received routine care during with [place]. HOA presented to hospital and delivered baby via vaginal delivery on 05/07/22 at 40 weeks gestation. Baby boy, named Alfredo, was born weighing 7lb 4oz and his apgars were 9 and 9 at one and five minutes of life respectfully. HOA states that she is working on breast feeding and has a pump for home. Baby will be followed by Pratibha Trujillo for PCP. Educational Status:? Both parents completed high school, MOB obtained a medical certificate in medical billing and coding. Parents deny any issues with reading, learning or comprehension. Financial Status: Both parents are gainfully employed outside of the home. HOA works for [employer] and is able to take a maternity leave. INNA works for a [employer] is also able to take some time off of work. Supplies:?? Parents report that they have obtained all necessary baby supplies including: car seat, safe sleep space, clothes, diapers, wipes and a breast pump. Childcare/Caregiver(s):? While off of work MOB will be the primary caregiver to baby, when both parents have returned to work they have childcare arrangements made with a fractionation plant supervisor. Transportation:?? Both parents have their drivers license and they have one vehicle between them. Parents deny that this is a barrier, they are working on getting another vehicle. Programs/Agencies Involved: ?HOA is connected to [employer] and [facility]. Family also has Medicaid insurance as secondary insurance. HOA states that she is connected to counseling through [facility]. ?? Children Services/Legal Issues:??? No history of involvement, no issues or concerns warranting a referral to be made at this time. Behavioral Health Issues: ??Mental Health History: INNA states that he was recently diagnosed with anxiety and was put on Lexapro. INNA stated that his anxiety stems from his work and as a result he recently changed to a different position. HOA states that she has been diagnosed with anxiety, depression, PTSD and did experience anxiety following the delivery of her first baby. HOA stated that when she experienced anxiety it was difficult for her to sleep because she was always worried that something was going to happen to the baby. HOA stated that these kinds of feelings started a couple of days after they returned home from the hospital and lasted a couple of month. MOB states that when they started to get into a good routine, and were getting more sleep the feelings subsided. HOA states that she is prescribed psychopharmacological medications to help with her mental health symptoms: Wellbutrin and trazodone. HOA states that she is also prescribed Xanax to take PRN as necessary, but denies use during . Substance Use History:?HOA denies substance use prior to and during. INNA also denies substance use. ? Family History:?HOA states that there is substance abuse on both sides of the family. INNA states that his father is an alcoholic. HOA states that her mom has cancer and smokes marijuana and is also prescribed opiates. HOA states that she believes that her mom abuses the opiates so that she can push her body to more instead of resting. HOA states that her mom and her father in law will never be responsible for watching their children independently. Sw advised HOA to educate her mother to never smoke around the children, and to change her clothes to prevent second hand smoke. Drug Screens: ?NO urine screens observed in chart review. ? Family/Social Stressors:? Parents deny Support Systems: MOB states that both sets of grandparents are their biggest supports. Depression/Shaken Baby/Safe Sleeping:? Sw educated parents on signs and symptoms of baby blues and depression. Parents expressed understanding. Sw provided parents with literature for their review. Educated on mood and anxiety disorders, risk factors and that both parents can be at risk. Educated on shaken baby prevention and ABCs of safe sleep. Parents expressed understanding. ASSESSMENT:? Met with MOB and FOB along with in room. Both parents present to completion of assessment. MOB completed [place] Depression Scale, her score was a 9- education and support provided. Observed FOB hands on care of , observed to be appropriate and caring. MOB addressed her mental health history, acknowledged that she is already prescribed medications to address her mental health and she plans to remain on her medications during her period. Parents made good eye contact during assessment and engaged in conversation. MOB already connected to appropriate supports such as WIC, [facility] and mental health resources. PLAN:? MOB and baby to be discharged when medically ready. ?No other services requested or indicated. Hedy Ott, [employer], [employer]AC[employer]
[2023-05-08] MEDS: Senna/Docusate Sodium 1 Tablet PO (16:28)
[2023-05-08] MEDS: buPROPion (XL) 150 MG TABLET.XL PO (22:12)
[2023-05-09] MEDS: Acetaminophen 500 MG Tablet 1000 MG PO ×2 (01:02→08:45)
[2023-05-09] MEDS: Ibuprofen 600 MG Tablet PO ×2 (01:03→08:45)
[2023-05-09 01:11] VITALS: BP 126/71; PULSE 87; RESP 16; TEMP 36.1; O2SAT 96
[2023-05-09] MEDS: Levothyroxine 50 MCG Tablet PO (05:47)
[2023-05-09 08:00] VITALS: BP 125/66; PULSE 77; RESP 18; TEMP 36.1; O2SAT 96
--- NOTE | 2023-05-09 08:01 | PN.OBGYN_ITS ---
Subjective Subjective Patient doing well without complaints. Tolerating PO. Ambulating and voiding without difficulty. feeding well. Denies chest pain, shortness of breath, calf pain/swelling, fevers, chills, lightheadedness. Objective Data Objective Data Vital Signs: Vital Signs Temp Pulse Resp BP Pulse Ox O2 Del Method 97.0 F L 87 16 126/71 H 96 Room Air 05/09/23 01:11 05/09/23 01:11 05/09/23 01:11 05/09/23 01:11 05/09/23 01:11 05/09/23 01:11 Oxygen Delivery Method Room Air Weight: 317 lb 7.45 oz Body Mass Index (BMI) 49.7 Intake & Output: Intake and Output for Last 24 Hours 05/07/23 05/08/23 05/09/23 23:59 23:59 23:59 Intake Total 2714.00 / 2714.00 0 / 0 Output Total 950 / 950 550 / 550 Balance 1764.00 / 1764.00 -550 / -550 Lab / Micro Data 05/07/23 08:45 ROS Constitutional Constitutional: Reports systems reviewed and no addt'l complaints, except as do cumented Cardiovascular Cardiovascular: Reports systems reviewed and no addt'l complaints, except as documented Respiratory/Chest Respiratory/Chest: Reports systems reviewed and no addt'l complaints, except as documented Gastrointestinal Gastrointestinal: Reports systems reviewed and no addt'l complaints, except as documented Physical Exam Const alert, oriented x3 and no apparent distress HEENT Head and Scalp: atraumatic Resp normal respiratory effort GI soft to palpation and non-tender Bimanual Exam - Vag & Uterus: uterus non-tender Uterus Palpation: uterus fundus firm (below Umbilicus) Assessment & Plan (1) Vaginal delivery: COMMENT: 40.1 Boy Alfredo, SARA PLAN: Plan s/p PPD # 2 1. routine post delivery care 2. breast feeding- support given 3. rh positive 4. rubella immune
[2023-05-09] MEDS: Pantoprazole Sodium 20 MG Tablet PO (08:44)
== END 2023-05-09 10:50 | disposition home or self-care (01) | DRG 806 ==
PROVIDERS: Obstetrics & Gynecology; Admitting Provider Advanced Practice Midwife; PCP Obstetrics & Gynecology; Visit Provider Advanced Practice Midwife
DX: O48.0 Post-term pregnancy (principal); Z37.0 Single live birth; O22.43 Hemorrhoids in pregnancy, third trimester; O99.344 Other mental disorders complicating childbirth; E66.01 Morbid (severe) obesity due to excess calories; E05.00 Thyrotoxicosis with diffuse goiter without thyrotoxic crisis or storm; E06.3 Autoimmune thyroiditis; O99.284 Endocrine, nutritional and metabolic diseases complicating childbirth; O99.844 Bariatric surgery status complicating childbirth; Z3A.40 40 weeks gestation of pregnancy; O99.214 Obesity complicating childbirth; O99.02 Anemia complicating childbirth; Z79.890 Hormone replacement therapy; Z86.32 Personal history of gestational diabetes; F41.0 Panic disorder [episodic paroxysmal anxiety]
CPT/HCPCS: 59025; 59050; 82962; 84112; 85025; 86780; 86850; 86900; 86901; 99221; J7120; G0378

== ENCOUNTER → 2023-06-18 | Outpatient (CLI) | payer OTHER, MEDICAID, SELFPAY ==
--- OUTSIDE RECORDS SUMMARY | 2023-06-18 19:22 | XMS RPT_ITS | CCD ---
Author Name Unknown Address [address] [place] [address] Organization [facility] Care Team Providers Care Senior Python Developer Name Role Phone MARICRUZ TORRES Primary Care Unavailable Maricruz Torres Primary Care Provider Maricruz Torres CNP Primary Care Provider Maricruz Trores CNP Primary Care Provider [phone] Maricruz Torres CNP Primary Care Provider WILLIAM LINO Primary Care Unavailable LANE MANUEL Attending Unavailabl LANE Butler Referring Unavailabl WILLIAM Dasilva Primary Care Unavailable LANE MANUEL Attending Unavailabl e LANE MANUEL Referring Unavailabl e MARICRUZ TORRES Primary Care Unavailable KIMBER MURRAY Attending Unavailab MARICRUZ Bishop Primary Care Unavailable MILES LUBIN Attending Unavaila ble JASMYN SIMENTAL Attending Unavailable MARICRUZ TORRES Primary Care Unavailable MARICRUZ TORRES Primary Care Unavailable KIMBER MURRAY Attending Unavailab MARICRUZ Bishop Primary Care Unavailable KIMBER MURRAY Attending Unavailab MARICRUZ Bishop Primary Care Unavailable JASMYN SIMENTAL Attending Unavailable MARICRUZ TORRES Primary Care Unavailable KIMBER MURRAY Attending Unavailab le NANCIE INCIDENT MANAGER~[id number], NANCIE Ramos Primary Ca re Unavailable JASMYN SIMENTAL Admitting Unavailable JASMYN SIMENTAL Consulting Unavailable JASMYN SIMENTAL Attending Unavailable JASMYN SIMENTAL Consulting Unavailable SABRA CANADA APRN Consulting Unavailable SABRA CANADA APRN Consulting Unavailable MILES LUBIN Admitting Unavailable MILES LUBIN Attending Unavailable MARICRUZ TORRES Primary Care Unavailable MARICRUZ TORRES Consulting Unavailable MILES LUBIN Consulting Unavailable MARICRUZ TORRES Admitting Unavailable MARICRUZ TORRES Attending Unavailable MARICRUZ TORRES Primary Care Unavailable MARICRUZ TORRES Consulting Unavailable MARICRUZ TORRES Consulting Unavailable LANE MANUEL Admitting Unavailable LANE MANUEL Attending Unavailable MARICRUZ TORRES Primary Care Unavailable MARICRUZ TORRES Consulting Unavailable MARICRUZ TORRES Consulting Unavailable LANE MANUEL Consulting Unavailable NONE, NONE Primary Care Unavailable NONE, NONE Consulting Unavailable KIMBER MURRAY Admitting Unavailable KIMBER MURRAY Attending Unavailable NONE, NONE Consulting Unavailable KIMBER MURRAY Consulting Unavailable KIMBER MURRAY Consulting Unavailable KIMBER MURRAY Admitting Unavailable NANCIE ESCOBEDO~[id number], NANCIE Ramos Primary Ca re Unavailable KIMBER MURRAY Attending Unavailable SABRA CANADA APRN Consulting Unavailable SABRA CANADA APRN Consulting Unavailable KIMBER MURRAY Consulting Unavailable KIMBER MURRAY Consulting Unavailable Medications Current Medications Medication Drug Class(es) Dates [...] 50 tablet 6 09/30/2020 06/19/2022 Discontinued Problems Problem Classification Problem Date Documented Date [...] Translations: [Graves' disease] Onset: 07-10-2020 07-10-2020 Chronic Results Test Name Value Interpretation Reference Range Facil ity Vital Signs Date Time Vital Sign Value Performing Clinician Faci lity 03-04-2023 13:17-0400 Body mass index (BMI) [Ratio] 48.69 kg/m2 Jasmyn Simental RESIDENTIAL CARPET INSTALLER Work Phone: [facility] 03-04-2023 13:17-0400 Body weight 141.02 kg Jasmyn Simental RESIDENTIAL CARPET INSTALLER Work Phone: [facility] 03-04-2023 13:17-0400 Diastolic blood pressure 75 mm[Hg] Jasmyn Simental [facility] Work Phone: [facility] 03-04-2023 13:17-0400 Heart rate 83 /min Jasmyn Simental [employer]IDENTIAL CARPET INST[employer]ER Work Phone: [facility] 03-04-2023 13:17-0400 Systolic blood pressure 113 mm[Hg] Jasmyn Simental [facility] Work Phone: [facility] 11-20-2022 14:34-0400 Body mass index (BMI) [Ratio] 47.08 kg/m2 Kimber Murray RESIDENTIAL CARPET INSTALLER Work Phone: [facility] 11-20-2022 14:34-0400 Body weight 136.35 kg Kimber Murray RESIDENTIAL CARPET INSTALLER Work Phone: [facility] 11-20-2022 14:34-0400 Diastolic blood pressure 67 mm[Hg] Kimber Murray RESIDENTIAL CARPET INSTALLER Work Phone: [facility] 11-20-2022 14:34-0400 Heart rate 76 /min Kimberkamari Murray RESIDENTIAL CARPET INSTALLER Work Phone: [facility] 11-20-2022 14:34-0400 Systolic blood pressure 101 mm[Hg] Kimber Murray RESIDENTIAL CARPET INSTALLER Work Phone: [facility] 06-19-2022 07:41-0500 Body mass index (BMI) [Ratio] 45.31 kg/m2 Kimber Murray RESIDENTIAL CARPET INSTALLER Work Phone: [facility] 06-19-2022 07:41-0500 Body weight 131.23 kg Kimberkamari Murray RESIDENTIAL CARPET INSTALLER Work Phone: [facility] 06-19-2022 07:41-0500 Diastolic blood pressure 85 mm[Hg] Kimber Murray RESIDENTIAL CARPET INSTALLER Work Phone: [facility] 06-19-2022 07:41-0500 Heart rate 70 /min Kimber Murray RESIDENTIAL CARPET INSTALLER Work Phone: [facility] 06-19-2022 07:41-0500 Systolic blood pressure 123 mm[Hg] Kimber Murray RESIDENTIAL CARPET INSTALLER Work Phone: [facility] 01-15-2022 15:51-0400 Body height 170.2 cm Miles Lubin PA- C Work Phone: [facility] 01-15-2022 15:51-0400 Body mass index (BMI) [Ratio] 44.95 kg/m2 Miles Lubin PA-C Work Phone: [facility] 01-15-2022 15:51-0400 Body weight 130.18 kg Miles Lubin PA- C Work Phone: [facility] 01-15-2022 15:51-0400 Diastolic blood pressure 74 mm[Hg] Miles Lubin PA-C Work Phone: [facility] 01-15-2022 15:51-0400 Heart rate 90 /min Miles Kleinmann PA- C Work Phone: [facility] 01-15-2022 15:51-0400 Systolic blood pressure 113 mm[Hg] Miles Kleinmann PA-C Work Phone: [facility] 10-06-2021 08:12-0400 Body height 170.2 cm Miles Kleinmann PA- C Work Phone: [facility] 10-06-2021 08:12-0400 Body mass index (BMI) [Ratio] 47.14 kg/m2 Miles Kleinmann PA-C Work Phone: [facility] 10-06-2021 08:12-0400 Body weight 136.53 kg Miles Kleinmann PA- C Work Phone: [facility] 10-06-2021 08:12-0400 Diastolic blood pressure 80 mm[Hg] Miles Kleinmann PA-C Work Phone: [facility] 10-06-2021 08:12-0400 Heart rate 88 /min Miles Kleinmann PA- C Work Phone: [facility] 10-06-2021 08:12-0400 Systolic blood pressure 132 mm[Hg] Miles Kleinmann PA-C Work Phone: [facility] 02-03-2021 13:37-0400 Body height 170.2 cm Miles Kleinmann PA- C Work Phone: [facility] 02-03-2021 13:37-0400 Body mass index (BMI) [Ratio] 43.85 kg/m2 Miles Kleinmann PA-C Work Phone: [facility] 02-03-2021 13:37-0400 Body weight 127.01 kg Miles Kleinmann PA- C Work Phone: [facility] 02-03-2021 13:37-0400 Diastolic blood pressure 66 mm[Hg] Miles Kleinmann PA-C Work Phone: [facility] 02-03-2021 13:37-0400 Heart rate 80 /min Miles Kleinmann PA- C Work Phone: [facility] 02-03-2021 13:37-0400 Systolic blood pressure 114 mm[Hg] Miles Kellenmann PA-C Work Phone: [facility] 11-11-2020 14:03-0400 Body height 170.2 cm Miles Kleinmann PA- C Work Phone: [facility] 11-11-2020 14:03-0400 Body mass index (BMI) [Ratio] 43.96 kg/m2 Miles Kleinmann PA-C Work Phone: [facility] 11-11-2020 14:03-0400 Body weight 127.33 kg Miles Kellenmann PA- C Work Phone: [facility] 11-11-2020 14:03-0400 Diastolic blood pressure 83 mm[Hg] Miles Kleinmann PA-C Work Phone: [facility] 11-11-2020 14:03-0400 Heart rate 90 /min Miles Kellenmann PA- C Work Phone: [facility] 11-11-2020 14:03-0400 Systolic blood pressure 117 mm[Hg] Miles Kleinmann PA-C Work Phone: [facility] 08-18-2020 14:05-0400 BMI (Body Mass Index) 44.17 kg/m2 Mary Ellen Umaña [facility] 08-18-2020 14:05-0400 Body weight 127.91 kg Mary Ellen Umaña [facility] 08-18-2020 14:05-0400 BP Diastolic 77 mm[Hg] Mary Ellen Umaña [facility] 08-18-2020 14:05-0400 BP Systolic 119 mm[Hg] Mary Ellen Umaña [facility] 08-18-2020 14:05-0400 Height 170.2 cm Mary Ellen Umaña [facility] 08-18-2020 14:05-0400 Pulse (Heart Rate) 81 /min Mary Ellen Umaña [facility] 07-08-2020 10:16-0500 Body weight 127.46 kg Mary Ellen Umaña [facility] 07-08-2020 10:16-0500 BP Diastolic 85 mm[Hg] Mary Ellen Umaña [facility] 07-08-2020 10:16-0500 BP Systolic 135 mm[Hg] Mary Ellen Umaña [facility] 07-08-2020 10:16-0500 Pulse (Heart Rate) 91 /min Mary Ellen Umaña [facility] Encounters Encounter Date Encounter Type Care Provider Facility Start: 05-15-2023 End: 05-16-2023 ambulatory JASMYN SIMENTAL [facility] Start: 03-04-2023 End: 03-04-2023 ambulatory MARICRUZ TORRES [facility] Start: 03-04-2023 End: 03-04-2023 Office outpatient visit 15 minutes Jasmyn Simental CNP Work Phone: [facility] Plan of Treatment Date Care Activity Detail Author Start: 02-11-2033 Tetanus vaccination Tetanus: Every 10yrs [facility] Start: 04-30-2029 Tetanus vaccination Tetanus: Every 10yrs [facility] Start: 07-23-2023 End: 07-23-2023 Patient encounter procedure 07/23/2023 1:45 PM EDT Office Visit [facility] [address] [facility] [place] [address] Kimber Murray CNP [address] [place] [address] [facility] Start: 06-10-2023 End: 03-04-2024 Thyrotropin [Units/volume] in Serum or Plasma TSH Lab Routine Liliya's thyroiditis Hypothyroidism during in third trimester Expected: 06/10/2023, Expires: 03/04/2024 [facility] Payers Date Payer Category Payer Medicaid [id number] 2020 Medicaid [id number] 2020 Medicaid [id number] 2020 Private Health Insurance 103 [id number] 2020 Unknown [id number] 2020 Unknown [id number] 2020 Unknown [facility] [employer] CLE[employer] CE PLUS [id number] 2020-Present [phone] [address] [address] [place] [address] [id number] 1991 Unknown [id number] 2.16.840.1.889404.3.579.2.9 03 1991 Unknown [id number] 2.16.840.1.047854.3.579.2.4 79 1991 Unknown [id number] 2.16.840.1.900367.3.579.2.4 79 1991 Unknown [id number] 2.16.840.1.985117.3.579.2.9 03 1991 Unknown [id number] 2.16.840.1.831168.3.579.2.9 03 1991 Unknown [id number] 2.16.840.1.410146.3.579.2.9 03 1991 Unknown [id number] 2.16.840.1.064357.3.579.2.9 03 1991 Unknown [id number] 2.16.840.1.080334.3.579.2.9 03 1991 Unknown [id number] 2.16.840.1.884711.3.579.2.9 03 1991 Unknown [id number] 2.16.840.1.322888.3.579.2.9 03 1991 Unknown [id number] 2.16.840.1.120371.3.579.2.4 19 1991 Unknown [id number] 2.16.840.1.678899.3.579.2.4 19 1991 Unknown [id number] 2.16.840.1.977099.3.579.2.4 19 1991 Unknown [id number] 2.16.840.1.889046.3.579.2.4 1991 Unknown [id number] 2.16.840.1.880418.3.579.2.4 19 1991 Unknown [id number] 2.16.840.1.193736.3.579.2.4 19 Social History Date Type Detail Facility Start: 07-10-2020 End: 06-19-2022 Tobacco smoking status PAIS Never smoker [facility] Start: 07-10-2020 End: 06-19-2022 Tobacco use and exposure Never used [facility] Start: 07-10-2020 End: 03-04-2023 Alcohol intake Current drinker of alcohol (finding) [facility] Start: 07-08-2020 Alcohol Comment rarely [facility] Start: 1990 Sex Assigned At Not on file [facility] Start: 09-26-2021 End: 06-18-2022 Exposure to SARS-CoV-2 (event) Not sure [facility] Start: 11-11-2020 End: 11-20-2022 Alcohol intake [facility] Start: 06-19-2022 End: 11-20-2022 Tobacco use panel [facility] Start: 08-13-2022 [facility] Clinical Notes 11-11-2020 to 03-04-2023 Patient [...] mcg oral daily documented in this encounter [facility] 03-04-2023 History of Presen t illness [...] BOWEN 231:28 PM documented in this encounter [facility] 11-20-2022 History of Presen t illness [...] 11/20/22 12:26 PM documented in this encounter [facility] 06-19-2022 History of Presen t illness [...] 06/21/22 12:26 PM documented in this encounter [facility] 01-16-2022 History of Presen t illness [...] 04/16/2022). Electronically signed by: Miles Lubin PA-C, [facility] 01/16/22 11:46 AM documented in this encounter [facility] 10-06-2021 History of Presen t illness [...] (around 01/06/2022). Electronically signed by: Miles Lubin PA-CALEX 10/06/21 10:02 AM documented in this encounter [facility] 02-07-2021 History of Presen t illness [...] 04/05/2021). Electronically signed by: Miles Lubin PA-C, [facility] 02/07/21 9:23 AM documented in this encounter [facility] 02-03-2021 Instructions Miles Lubin PA-C - 02/03/2021 1:56 PM EDT Reduce Methimazole to 5mg daily documented in this encounter [facility] 11-11-2020 History of Presen t illness [...] 01/12/2021). Electronically signed by: Miles Lubin PA-C, [facility] 11/11/20 3:39 PM documented in this encounter [facility] Graves disease- Primary Toxic diffuse goiter without mention of thyrotoxic crisis or storm Liliya's thyroiditis Chronic lymphocytic thyroiditis [facility] Diagnosis Graves disease- Primary Toxic diffuse goiter without mention of thyrotoxic crisis or storm [facility] Diagnosis Liliya's thyroiditis- Primary Chronic lymphocytic thyroiditis Graves disease Toxic diffuse goiter without mention of thyrotoxic crisis or storm [facility] Diagnosis Liliya's thyroiditis- Primary Chronic lymphocytic thyroiditis Graves disease Toxic diffuse goiter without mention of thyrotoxic crisis or storm [facility] Diagnosis Liliya's thyroiditis- Primary Chronic lymphocytic thyroiditis [facility] Diagnosis Liliya's thyroiditis- Primary Chronic lymphocytic thyroiditis Hypothyroidism during in third trimester Graves' disease in remission documented in this encounter [facility] Summary Purpose Family History No Family History Records FoundNo Family History Records FoundNo Family History Records FoundNo Family History Records Found Advance Directives No Advanced Directives Records FoundDocuments on File Type Date Recorded Patient Beach Attendant Expl anation Advance Directives and Living Will Documents on File Type Date Recorded Patient Beach Attendant Expl anation Advance Directives and Living Will Reason for Referral Status Reason Specialty Diagnoses / Procedures Referred By Contact Referred To Contact Pending Review Radiology Diagnoses Hyperthyroidism Procedures US Thyroid Only Mary Ellen Umaña MD [address] [place] [id number] History of Present Illness * Mary Ellen [...] file Gets together: Not on file Attends adventist service: Not on file Active member of [...] DATE CREATED AUTHOR AUTHOR'S ORGANIZ ATION 01/01/2023 [facility] DATE CREATED AUTHOR AUTHOR'S ORGANIZ ATION 05/19/2023 [facility] DATE CREATED AUTHOR AUTHOR'S ORGANIZ ATION 06/05/2023 [facility] Reason for Visit (unrecogniz ed section and content) Status Reason Specialty Diagnoses / Procedures Referred By Contact Referred To Contact Closed Specialty Services Required/Patient 's Best Interest Endocrinology Diagnoses Hyperthyroidism Maricruz Torres, RESIDENTIAL CARPET INSTALLER [address] [place] [address] Mary Ellen Umaña MD [address] [place] [address] Reason Comments Thyroid Problem Reason Comments Thyroid Problem Liliya's Thyroiditis Reason Comments Medication Refill Reason Comments Thyroid Problem Hypothyroidism during Care Teams (unrecognized sec tion and content) Senior Python Developer Relationship Specialty Start Date End Date Maricruz Torres CNP [address] [place] [address] PCP - General Nurse Practitioner 07/07/20 Senior Python Developer Relationship Specialty Start Date End Date Maricruz Torres CNP [address] [place] [address] PCP - General Nurse Practitioner 07/07/20 Senior Python Developer Relationship Specialty Start Date End Date Maricruz Torres CNP [address] [place] [address] PCP - General Nurse Practitioner 07/07/20 Senior Python Developer Relationship Specialty Start Date End Date Maricruz Torres CNP [address] [place] [address] PCP - General Nurse Practitioner 07/07/20 Senior Python Developer Relationship Specialty Start Date End Date Maricruz Torres CNP [address] [place] [address] PCP - General Nurse Practitioner 07/07/20 Senior Python Developer Relationship Specialty Start Date End Date Maricruz Torres CNP [address] [place] [address] PCP - General Nurse Practitioner 07/07/20 FOR [...] BE BASED ON THE PRIMARY CLINICAL RECORDS. [facility] provides no warranty or guarantee of the accuracy or completeness of information in this document.
[2023-06-22 09:08] LABS: HPV APTIMA, High Risk Negative (Negative)
== END | disposition home or self-care (01) ==
LOC: LABSPEC 14:36
PROVIDERS: PCP Obstetrics & Gynecology; Referring Provider Advanced Practice Midwife; Visit Provider Advanced Practice Midwife
DX: Z12.4 Encounter for screening for malignant neoplasm of cervix (principal); Z78.0 Asymptomatic menopausal state
CPT/HCPCS: 87624; 88175; G0145

== ENCOUNTER → 2023-10-24 | Outpatient (CLI) | payer OTHER, MEDICAID, SELFPAY | END | disposition home or self-care (01) | LOC: LABSPEC 16:58 | PROVIDERS: PCP Obstetrics & Gynecology; Referring Provider Nurse Practitioner Family; Visit Provider Nurse Practitioner Family | DX: N89.8 Other specified noninflammatory disorders of vagina (principal) | CPT/HCPCS: 87070; 87205 ==

== ENCOUNTER → 2024-07-27 | Outpatient (CLI) | payer OTHER, SELFPAY ==
[2024-07-29 14:08] LABS: HPV APTIMA, High Risk Positive (Negative)
== END | disposition home or self-care (01) ==
LOC: LABSPEC 11:17
PROVIDERS: PCP Obstetrics & Gynecology; Referring Provider Advanced Practice Midwife; Visit Provider Advanced Practice Midwife
DX: Z12.4 Encounter for screening for malignant neoplasm of cervix (principal)
CPT/HCPCS: 87624; 88175; G0145

== ENCOUNTER → 2024-09-14 | Outpatient (CLI) | payer OTHER, SELFPAY ==
--- NOTE | 2024-09-14 13:20 | CER_PTH ---
PATIENT: RAUL ZIEGLER [facility]: [facility]#:[id number] AGE/SX: 34/F ROOM: RE09/14/[address]: Dr. Ida Kirkpatrick DO : 1990 BED: DIS: 09/14/2024 SPEC #: [id number] RECD: 09/14/24 16:22 STATUS: [place] ARCECedrick #: [id number] ANAHI: 09/14/24 13:[address]: Ida Kirkpatrick DEPT: SURGICAL PATHOLOGY RECD BY: Tarik Viveros Tissues: A - Endocervical B - Uterine cervix, NOS Procedures: Surgery Specimen Level IV HEADER OPERATION: Colposcopy PRE-OP DIAGNOSIS: LGSIL, HPV+ TISSUE SUBMITTED: A- ECC, B- 6o'clock biopsy MICROSCOPIC DIAGNOSIS A. Cervix, endocervical curettage: * Scant superficial fragments of squamous epithelium with mild atypia and HPV associated cytopathic effect B. Cervix, 6:00, biopsy: * Squamous epithelium, negative for intraepithelial lesion MICROSCOPIC DESCRIPTION Slides are reviewed. GROSS DESCRIPTION A. Received in formalin in a container labeled with the patient's name, date of , and ECC is a scant amount of wispy soft tissue and mucus measuring approximately 1.5 x 1.0 x 0.2 cm in aggregate. The specimen is submitted entirely for cellblock preparation in A1. B. Received in formalin in a container labeled with the patient's name, date of , and 6:00 o'clock is a 0.1 x 0.1 x 0.1 cm tiny fragment of gaming-pink soft tissue. Submitted in toto in B1. [facility] 09-15-2024 CPT:44072s4
== END | disposition home or self-care (01) ==
LOC: LABSPEC 15:36
PROVIDERS: PCP Obstetrics & Gynecology; Referring Provider Obstetrics & Gynecology; Visit Provider Obstetrics & Gynecology
DX: R87.612 Low grade squamous intraepithelial lesion on cytologic smear of cervix (LGSIL) (principal)
CPT/HCPCS: 88305

== ENCOUNTER → 2025-04-13 | Outpatient (CLI) | payer OTHER, SELFPAY ==
--- NOTE | 2025-04-13 12:32 | US_ITS ---
PROCEDURE: PELVIC W/ TRANSVAGINAL 04/13/2025 REASON FOR EXAM: LEFT OVARIAN CYST TECHNIQUE: Procedure Code: [id number] Modality: US Procedure: PELVIC W/ TRANSVAGINAL COMPARISON: None FINDINGS: Measurements: Uterus: 10.1 x 6.6 x 4.3 cm with a volume of 150 mL mL Endometrial Thickness: 3 mm Right Ovary: 3.1 x 2.3 x 1.4 cm with a volume of 7.8 mL. Left Ovary: 4.9 x 3.5 x 2.4 cm with a volume of 22 mL. Uterus: The uterus is anteverted. There is an IUD identified in the fundal portion of the endometrium. Endometrium: 3 mm. Endometrium is hyperechoic. IUD is seen in the fundal portion. Cervix: Nabothian cyst is seen. Right ovary: Size, contour and echogenicity are within normal limits. There is blood flow to the ovary. No masses are seen. Left ovary: Size, contour and echogenicity are within normal limits. There is blood flow to the ovary. No masses are seen. Other: There is no free fluid in the cul-de-sac. Bladder: Urinary bladder measures 10.7 x 10.5 x 6.1 cm. Urinary bladder volume is 361 mL. There is no filling defects seen in the urinary bladder. The bladder wall is not thick. US/Pelvic w/ Transvaginal IMPRESSION: There is an IUD identified within the fundal portion of the endometrium. Normal appearance to both ovaries. Reading Location: [id number]
== END | disposition home or self-care (01) ==
PROVIDERS: PCP Specialist/Technologist Athletic Trainer; Referring Provider Obstetrics & Gynecology; Visit Provider Obstetrics & Gynecology
DX: N83.202 Unspecified ovarian cyst, left side (principal)
CPT/HCPCS: 76830; 76856